=== PATIENT | female | born 1980 | race Caucasian/White ===

== ENCOUNTER 2016-10-27 01:11 | Emergency (ER) | payer BC ==
[2016-10-27] MEDS ORDERED: 50% Dextrose in Water 50 ML Syringe IVPUSH ONE (01:15)
[2016-10-27] MEDS ORDERED: 50% Dextrose in Water 50 ML Syringe ONE (01:19)
[2016-10-27 01:20] VITALS: BP 139/88
[2016-10-27] MEDS ORDERED: Ketorolac 30 MG/ML SDV ONE (02:02)
--- NOTE | 2016-10-27 03:29 | EDM.PDOC ---
ED HPI GENERAL MEDICAL PROBLEM - General Chief Complaint: Diabetic Complaint Stated Complaint: [facility] Time Seen by Provider: 10/27/16 01:26 Source of Information: Reports: Patient, RN Notes Reviewed History Limitations: Reports: No Limitations - History of Present Illness INITIAL COMMENTS - FREE TEXT/NARRATIVE: The patient was brought by EMS after being found unresponsive with sonorous breathing, on the floor. EMS found the patient's blood glucose to be 7. She was given 1 amp of D50, and the subsequent Accu-Chek was up to 75. A dilator check found it to be 60. Upon arrival to the ED, her Accu-Chek was 40. She was given a half amp of D50 and food. The patient states that she was not injured. The patient states that she is a type I diabetic with an insulin pump. She states that she bolused her insulin for the amount of food that she ate, and she has not skipped any meals recently. She states that she usually has a continuous glucose monitor, however, ran out about a week ago and has not yet replaced it due to expense. She has therefore been Accu-Cheking. She states that she has had prior episodes of hypoglycemia, approximately every 2 months, and virtually always when she is not using her continuous glucose monitor. The patient states that she, her 9-year-old son, and infant son drove from [facility], getting in around 21:30. She does not know if the stress from driving may have played a role in her hypoglycemic event tonight. No recent illnesses. The patient's PCP is Dr. Mare Cartagena. - Related Data Allergies Allergy/AdvReac Type Severity Reaction Status Date / Time promethazine Allergy Anaphylactic Verified 10/27/16 01:20 Shock Home Meds: Home Meds Cyanocobalamin/FA/Pyridoxine [Folbee] 1 tab PO DAILY 10/27/16 [History] FLUoxetine [PROzac] 30 mg PO DAILY 10/27/16 [History] Insulin Glargine,Hum.Rec.Anlog [Lantus Solostar] 20 unit SUBCUT QPM 10/27/16 [ History] Lisinopril 2.5 mg PO DAILY 10/27/16 [History] Thyroid,Pork [[place] Thyroid] 30 mg PO DAILY 10/27/16 [History] Thyroid,Pork [[place] Thyroid] 120 mg PO DAILY 10/27/16 [History] buPROPion HCl [Wellbutrin Xl] 300 mg PO DAILY 10/27/16 [History] 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: Psychiatric History: Reports: Depression, Mood Swings Endocrine/Metabolic History: Reports: Diabetes, Type I, Hypothyroidism, Obesity/ BMI 30+ - Past Surgical History HEENT Surgical History: Reports: Tonsillectomy GI Surgical History: Reports: Bariatric Procedure (gastric bypass), Cholecystectomy Female Surgical History: Reports: Section (x 2) Social & Family History - Family History Family Medical History: Noncontributory - Tobacco Use Smoking Status *Q: Former Smoker Years of Tobacco use: 5 Packs/Tins Daily: 0.1 Packs/Tins Daily Comment: Quit 2010 - Caffeine Use Caffeine Use: Reports: None - Alcohol Use Alcohol Use History: Yes Alcohol Use Frequency: Rarely - Recreational Drug Use Recreational Drug Use: No - Living Situation & Occupation Living situation: Reports: , with Spouse, with Family (2 kids) 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) ED ROS GENERAL - Review of Systems Review Of Systems: See Below Constitutional: Reports: No Symptoms HEENT: Reports: No Symptoms Respiratory: Reports: No Symptoms Cardiovascular: Reports: No Symptoms Endocrine: Reports: No Symptoms GI/Abdominal: Reports: No Symptoms : Reports: No Symptoms Musculoskeletal: Reports: No Symptoms Skin: Reports: No Symptoms Neurological: Reports: No Symptoms Psychiatric: Reports: No Symptoms Hematologic/Lymphatic: Reports: No Symptoms Immunologic: Reports: No Symptoms ED EXAM GENERAL NO PERIP PULSE - Physical Exam Exam: See Below Exam Limited By: No Limitations General Appearance: Alert, WD/WN, No Apparent Distress Eye Exam: Bilateral Eye: Normal Inspection Ears: Normal External Exam, Hearing Grossly Normal Nose: Normal Inspection, No Blood Throat/Mouth: Normal Inspection, Normal Lips, Normal Voice, No Airway Compromise Head: Atraumatic, Normocephalic Neck: Normal Inspection, Full Range of Motion Respiratory/Chest: No Respiratory Distress, Lungs Clear, Normal Breath Sounds, No Accessory Muscle Use Cardiovascular: Normal Peripheral Pulses, Regular Rate, Rhythm, No Gallop, No JVD, No Murmur, No Rub GI/Abdominal: Normal Bowel Sounds, Soft, Non-Tender, No Organomegaly, No Distention, No Abnormal Bruit, No Mass, Other (Obese) (Female) Exam: Deferred Rectal (Female) Exam: Deferred Back Exam: Normal Inspection, Full Range of Motion, NT Extremities: Normal Inspection, Normal Range of Motion, No Pedal Edema, Normal Capillary Refill Neurological: Alert, Oriented, Normal Cognition, No Motor/Sensory Deficits Psychiatric: Normal Affect Skin Exam: Warm, Dry, Intact, Normal Color, No Rash Course - Vital Signs Last Recorded V/S: Last Vital Signs Temp 35.3 C 10/27/16 01:15 Pulse 97 10/27/16 01:15 Resp 24 H 10/27/16 01:15 BP 139/88 10/27/16 01:15 Pulse Ox 100 10/27/16 01:15 - Orders/Labs/Meds Labs: Laboratory Tests 10/27/16 10/27/16 10/27/16 Range/Units 02:07 02:45 03:21 POC Glucose 119 H 181 H 238 H (70-105) mg/dL Meds: Medications Discontinued Medications Generic Name Dose Route Start Last Admin Trade Name Babak PRN Reason Stop Dose Admin Dextrose/Water 25 ml 10/27/16 01:15 10/27/16 01:36 Dextrose 50% In Water IVPUSH 10/27/16 01:16 25 ml ONETIME ONE Administration Dextrose/Water Confirm 10/27/16 01:19 10/27/16 01:21 Dextrose 50% In Water Administered 10/27/16 01:20 Not Given Dose 50 ml .ROUTE .STK-MED ONE Ketorolac Tromethamine Confirm 10/27/16 02:02 10/27/16 03:37 Toradol Administered 10/27/16 02:03 Not Given Dose 30 mg .ROUTE .STK-MED ONE - Re-Assessments/Exams Free Text/Narrative Re-Assessment/Exam: 10/27/16 03:31 The patient's blood glucose was 40 upon arrival to the ED. She was given 1/2 Amp D50. Accu-Cheks since then have been 119, 181, and, most recently, 238. I will discharge the patient home with recommendation that she follow-up with her PCP, Dr. Mare Cartagena. Departure - Departure Time of Disposition: 03:32 Disposition: Home, Self-Care 01 Condition: Good Clinical Impression: Hypoglycemic insulin reaction in type 1 diabetes mellitus - Discharge Information Instructions: Hypoglycemia, [id number] Referrals: Tamera Cartagena SHANK TAPER [Primary Care Provider] - Forms: ED Department Discharge Additional Instructions: You were seen in the emergency room for severe hypoglycemia. After treatment with IV dextrose, your blood sugar has remained elevated. You may resume your usual insulin pump, however, we would recommend that you resume using your continuous glucose monitor as soon as possible. We recommend that you follow-up with your PCP, Dr. Mare Cartagena, at the next available appointment. If any other problems, please do not hesitate to return to the ER.
== END 2016-10-27 03:45 | disposition home or self-care (01) ==
LOC: JD.ED 01:11 → MERGE 01:11 → JD.ED 03:45
DX: E10.649 Type 1 diabetes mellitus with hypoglycemia without coma (principal); E03.9 Hypothyroidism, unspecified; E66.9 Obesity, unspecified; Z88.8 Allergy status to other drugs, medicaments and biological substances; Z79.899 Other long term (current) drug therapy; Z98.890 Other specified postprocedural states; Z90.49 Acquired absence of other specified parts of digestive tract; Z87.891 Personal history of nicotine dependence; Z68.33 Body mass index [BMI] 33.0-33.9, adult
CPT/HCPCS: 82962; 96374; 99285; J7060; 99284

== ENCOUNTER 2016-12-24 16:54 | Inpatient (IN) | payer BC ==
[2016-12-24] MEDS ORDERED: Ondansetron 4 MG/2 ML SDV IVPUSH ONE (17:32)
[2016-12-24] MEDS ORDERED: Sodium Chloride 0.9% 1,000 ML IV ONE (17:32)
--- NOTE | 2016-12-24 17:41 | EDM.PDOC ---
<Derek Johnson - Last Filed: 12/24/16 18:54> ED HPI GENERAL MEDICAL PROBLEM - General Chief Complaint: Diabetic Complaint Stated Complaint: DIABETIC ISSUES Time Seen by Provider: 12/24/16 17:12 Source of Information: Reports: Patient, Family (), RN Notes Reviewed History Limitations: Reports: No Limitations - History of Present Illness INITIAL COMMENTS - FREE TEXT/NARRATIVE: The patient states that she went to bed around 10:30 this morning. Her found her to be diaphoretic and nonresponsive around 04:00. He did not have any glucagon, therefore he gave her PICC she sticks and orange juice, the patient was able to somewhat swallow. The patient states that she was able to check her own blood sugar around 05:30, and found it to be 5. She rechecked it and found it to be 6. She took a shower just before 07:00, and apparently fell in the shower, but reports no injury. When she got out of the shower, her blood work was was 50. She continued to take by mouth. Her blood sugar swapnil to the 250s around 09:00. She states that she developed bilateral flank pain and generalized muscle aches around 11:00. Her blood sugar was 355 around noon, at which time she started her insulin pump. She called the office of her PCP, Dr. Mare Cartagena, around 14:00. She states that Dr. Cartagena was gone for the day, but she did speak to one of Dr. Cartagena's nurses, who instructed the patient to go to the ER. Here in the ED, the patient's blood glucose was found to be 194. She stated that it had been in the 250s at home, just before coming to the ED. She states that her last oral solid food was around 11:30 today, consisting of some pretzels. The patient states that she has had numerous hypoglycemic reactions, perhaps 3- 4 times a month. Generalized Pain Score (Numeric/FACES): 4 - Related Data Allergies Allergy/AdvReac Type Severity Reaction Status Date / Time promethazine Allergy Anaphylactic Verified 10/27/16 01:20 Shock Home Meds: Home Meds Cyanocobalamin/FA/Pyridoxine [Folbee] 1 tab PO DAILY 10/27/16 [History] Insulin Glargine,Hum.Rec.Anlog [Lantus Solostar] 20 unit SUBCUT QPM PRN [History] Lisinopril 2.5 mg PO DAILY 10/27/16 [History] Thyroid,Pork [[place] Thyroid] 30 mg PO DAILY 10/27/16 [History] Thyroid,Pork [[place] Thyroid] 120 mg PO DAILY 10/27/16 [History] buPROPion HCl [Wellbutrin Xl] 300 mg PO DAILY 10/27/16 [History] Ondansetron [Zofran ODT] 4 mg PO ASDIRECTED PRN 12/24/16 [History] 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: Psychiatric History: Reports: Depression, Mood Swings Endocrine/Metabolic History: Reports: Diabetes, Type I, Hypothyroidism, Obesity/ BMI 30+ - Past Surgical History HEENT Surgical History: Reports: Oral Surgery ([place] tooth extraction (one)), Tonsillectomy (unilateral) GI Surgical History: Reports: Bariatric Procedure (Gastric bypass 2013), Cholecystectomy Female Surgical History: Reports: Section (x 2) Social & Family History - Family History Family Medical History: Noncontributory - Tobacco Use Smoking Status *Q: Former Smoker Years of Tobacco use: 5 Packs/Tins Daily: 0.1 Month Tobacco Last Used: Quit around 1996 - Caffeine Use Caffeine Use: Reports: Coffee, Soda, Tea - Alcohol Use Alcohol Use History: No - Recreational Drug Use Recreational Drug Use: No - Living Situation & Occupation Living situation: Reports: , with Spouse, with Family (2 kids) 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) ED ROS GENERAL - Review of Systems Review Of Systems: See Below Constitutional: Reports: No Symptoms HEENT: Reports: Other (Viral URI symptoms x 1 month) Respiratory: Reports: No Symptoms Cardiovascular: Reports: No Symptoms Endocrine: Reports: No Symptoms GI/Abdominal: Reports: No Symptoms : Reports: No Symptoms Musculoskeletal: Reports: No Symptoms Skin: Reports: No Symptoms Neurological: Reports: No Symptoms Psychiatric: Reports: No Symptoms Hematologic/Lymphatic: Reports: No Symptoms Immunologic: Reports: No Symptoms ED EXAM GENERAL NO PERIP PULSE - Physical Exam Exam: See Below Exam Limited By: No Limitations General Appearance: Alert, WD/WN, No Apparent Distress Eye Exam: Bilateral Eye: Normal Inspection Ears: Normal External Exam, Hearing Grossly Normal Nose: Normal Inspection, No Blood Throat/Mouth: Normal Inspection, Normal Lips, Normal Voice, No Airway Compromise Head: Atraumatic, Normocephalic Neck: Normal Inspection, Full Range of Motion Respiratory/Chest: No Respiratory Distress, Lungs Clear, Normal Breath Sounds, No Accessory Muscle Use Cardiovascular: Normal Peripheral Pulses, Regular Rate, Rhythm, No Gallop, No JVD, No Murmur, No Rub GI/Abdominal: Normal Bowel Sounds, Soft, Non-Tender, No Organomegaly, No Distention, No Abnormal Bruit, No Mass, Other (Obese) (Female) Exam: Deferred Rectal (Female) Exam: Deferred Back Exam: Normal Inspection, Full Range of Motion, NT Extremities: Normal Inspection, Normal Range of Motion, No Pedal Edema Neurological: Alert, Oriented, Normal Cognition, No Motor/Sensory Deficits Psychiatric: Normal Affect Skin Exam: Warm, Dry, Intact, Normal Color, No Rash Course - Vital Signs Last Recorded V/S: Last Vital Signs Temp 100.0 F 12/24/16 17:06 Pulse 130 H 12/24/16 17:06 Resp 20 12/24/16 17:06 BP 106/88 12/24/16 17:06 Pulse Ox 97 12/24/16 17:06 Orthostatic Blood Pressure [ 99/68 Standing] Orthostatic Blood Pressure [ 115/72 Sitting] Orthostatic Blood Pressure [ 110/76 Supine] - Orders/Labs/Meds Orders: Active Orders 24 hr Category Date Time Status Blood Glucose Check, Bedside [RC] ONETIME Care 12/24/16 17:33 Active Blood Glucose Check, Bedside [RC] ONETIME Care 12/24/16 21:46 Active Orthostatic Vital Signs [RC] STAT Care 12/24/16 17:30 Active Abdomen Pelvis w Cont [CT] Stat Exams 12/24/16 19:25 Taken Chest 1V Frontal [CR] Stat Exams 12/24/16 17:30 Taken Dextrose 5%-0.9% NaCl [Dextrose 5%-Normal Saline] 1,000 Med 12/24/16 17:45 Active ml IV ASDIRECTED Medication Orders Dextrose/Sodium Chloride (Dextrose 5%-Normal Saline) 1,000 mls @ 150 mls/hr IV ASDIRECTED NEL Last Admin: 12/24/16 17:52 Dose: 150 mls/hr Labs: Laboratory Tests 12/24/16 12/24/16 12/24/16 Range/Units 17:05 17:13 17:13 WBC 19.08 H (3.98-10.04) K/mm3 RBC 4.18 (3.98-5.22) M/mm3 Hgb 10.7 L (11.2-15.7) gm/L Hct 34.9 (34.1-44.9) % MCV 83.5 (79.4-94.8) fl MCH 25.6 (25.6-32.2) pg MCHC 30.7 L (32.2-35.5) g/dl RDW Std Deviation 47.4 H (36.4-46.3) fL Plt Count 411 H (182-369) K/mm3 MPV 11.7 (9.4-12.3) fl Neutrophils % (Manual) 90 H (40-60) % Band Neutrophils % 0 (0-10) % Lymphocytes % (Manual) 5 L (20-40) % Atypical Lymphs % 0 % Monocytes % (Manual) 5 (2-10) % Eosinophils % (Manual) 0 L (0.7-5.8) % Basophils % (Manual) 0 L (0.1-1.2) Platelet Estimate Adequate Plt Morphology Comment See note Hypochromasia 1+ slight Poikilocytosis 2+ moderate Anisocytosis 1+ slight Stomatocytes 2+ moderate RBC Morph Comment Not Reportable Sodium 138 (136-145) mEq/L Potassium 4.4 (3.5-5.1) mEq/L Chloride 100 (98-107) mEq/L Carbon Dioxide 28 (21-32) mEq/L Anion Gap 14.4 (5-15) BUN 10 (7-18) mg/dL Creatinine 1.1 H (0.55-1.02) mg/dL Est Cr Clr Drug Dosing 71.32 mL/min Estimated GFR (MDRD) 56 (>60) mL/min BUN/Creatinine Ratio 9.1 L (14-18) Glucose 177 H (74-106) mg/dL POC Glucose 194 H (70-105) mg/dL Hemoglobin A1c (4.50-6.20) % Lactic Acid (0.4-2.0) mmol/L Calcium 9.4 (8.5-10.1) mg/dL Magnesium 1.4 L (1.8-2.4) mg/dl Total Bilirubin 0.3 (0.2-1.0) mg/dL AST 18 (15-37) U/L ALT 25 (14-59) U/L Alkaline Phosphatase 98 (46-116) U/L Total Protein 7.5 (6.4-8.2) g/dl Albumin 3.4 (3.4-5.0) g/dl Globulin 4.1 gm/dL Albumin/Globulin Ratio 0.8 L (1-2) TSH 3rd Generation 1.796 (0.358-3.74) uIU/mL Urine Color (Yellow) Urine Appearance (Clear) Urine pH (5.0-8.0) Ur Specific [place] (1.005-1.030) Urine Protein (Negative) Urine Glucose (UA) (Negative) Urine Ketones (Negative) Urine Occult Blood (Negative) Urine Nitrite (Negative) Urine Bilirubin (Negative) Urine Urobilinogen (0.2-1.0) Ur Leukocyte Esterase (Negative) Urine RBC (0-5) /hpf Urine WBC (0-5) /hpf Ur Epithelial Cells (0-5) /hpf Urine Bacteria (FEW) /hpf Urine Mucus (FEW) /hpf Urine HCG, Qual (NEGATIVE) 12/24/16 12/24/16 12/24/16 Range/Units 18:00 18:00 18:00 WBC (3.98-10.04) K/mm3 RBC (3.98-5.22) M/mm3 Hgb (11.2-15.7) gm/L Hct (34.1-44.9) % MCV (79.4-94.8) fl MCH (25.6-32.2) pg MCHC (32.2-35.5) g/dl RDW Std Deviation (36.4-46.3) fL Plt Count (182-369) K/mm3 MPV (9.4-12.3) fl Neutrophils % (Manual) (40-60) % Band Neutrophils % (0-10) % Lymphocytes % (Manual) (20-40) % Atypical Lymphs % % Monocytes % (Manual) (2-10) % Eosinophils % (Manual) (0.7-5.8) % Basophils % (Manual) (0.1-1.2) Platelet Estimate Plt Morphology Comment Hypochromasia Poikilocytosis Anisocytosis Stomatocytes RBC Morph Comment Sodium (136-145) mEq/L Potassium (3.5-5.1) mEq/L Chloride (98-107) mEq/L Carbon Dioxide (21-32) mEq/L Anion Gap (5-15) BUN (7-18) mg/dL Creatinine (0.55-1.02) mg/dL Est Cr Clr Drug Dosing mL/min Estimated GFR (MDRD) (>60) mL/min BUN/Creatinine Ratio (14-18) Glucose (74-106) mg/dL POC Glucose (70-105) mg/dL Hemoglobin A1c (4.50-6.20) % Lactic Acid 2.0 (0.4-2.0) mmol/L Calcium (8.5-10.1) mg/dL Magnesium (1.8-2.4) mg/dl Total Bilirubin (0.2-1.0) mg/dL AST (15-37) U/L ALT (14-59) U/L Alkaline Phosphatase (46-116) U/L Total Protein (6.4-8.2) g/dl Albumin (3.4-5.0) g/dl Globulin gm/dL Albumin/Globulin Ratio (1-2) TSH 3rd Generation (0.358-3.74) uIU/mL Urine Color Yellow (Yellow) Urine Appearance Clear (Clear) Urine pH 6.0 (5.0-8.0) Ur Specific [place] 1.015 (1.005-1.030) Urine Protein Negative (Negative) Urine Glucose (UA) Trace H (Negative) Urine Ketones Negative (Negative) Urine Occult Blood Negative (Negative) Urine Nitrite Negative (Negative) Urine Bilirubin Negative (Negative) Urine Urobilinogen 0.2 (0.2-1.0) Ur Leukocyte Esterase Negative (Negative) Urine RBC 0-5 (0-5) /hpf Urine WBC 0-5 (0-5) /hpf Ur Epithelial Cells 0-5 (0-5) /hpf Urine Bacteria Not seen (FEW) /hpf Urine Mucus Not seen (FEW) /hpf Urine HCG, Qual Negative (NEGATIVE) 12/24/16 12/24/16 Range/Units 21:28 22:35 WBC (3.98-10.04) K/mm3 RBC (3.98-5.22) M/mm3 Hgb (11.2-15.7) gm/L Hct (34.1-44.9) % MCV (79.4-94.8) fl MCH (25.6-32.2) pg MCHC (32.2-35.5) g/dl RDW Std Deviation (36.4-46.3) fL Plt Count (182-369) K/mm3 MPV (9.4-12.3) fl Neutrophils % (Manual) (40-60) % Band Neutrophils % (0-10) % Lymphocytes % (Manual) (20-40) % Atypical Lymphs % % Monocytes % (Manual) (2-10) % Eosinophils % (Manual) (0.7-5.8) % Basophils % (Manual) (0.1-1.2) Platelet Estimate Plt Morphology Comment Hypochromasia Poikilocytosis Anisocytosis Stomatocytes RBC Morph Comment Sodium (136-145) mEq/L Potassium (3.5-5.1) mEq/L Chloride (98-107) mEq/L Carbon Dioxide (21-32) mEq/L Anion Gap (5-15) BUN (7-18) mg/dL Creatinine (0.55-1.02) mg/dL Est Cr Clr Drug Dosing mL/min Estimated GFR (MDRD) (>60) mL/min BUN/Creatinine Ratio (14-18) Glucose (74-106) mg/dL POC Glucose 208 H (70-105) mg/dL Hemoglobin A1c 8.10 H (4.50-6.20) % Lactic Acid (0.4-2.0) mmol/L Calcium (8.5-10.1) mg/dL Magnesium (1.8-2.4) mg/dl Total Bilirubin (0.2-1.0) mg/dL AST (15-37) U/L ALT (14-59) U/L Alkaline Phosphatase (46-116) U/L Total Protein (6.4-8.2) g/dl Albumin (3.4-5.0) g/dl Globulin gm/dL Albumin/Globulin Ratio (1-2) TSH 3rd Generation (0.358-3.74) uIU/mL Urine Color (Yellow) Urine Appearance (Clear) Urine pH (5.0-8.0) Ur Specific [place] (1.005-1.030) Urine Protein (Negative) Urine Glucose (UA) (Negative) Urine Ketones (Negative) Urine Occult Blood (Negative) Urine Nitrite (Negative) Urine Bilirubin (Negative) Urine Urobilinogen (0.2-1.0) Ur Leukocyte Esterase (Negative) Urine RBC (0-5) /hpf Urine WBC (0-5) /hpf Ur Epithelial Cells (0-5) /hpf Urine Bacteria (FEW) /hpf Urine Mucus (FEW) /hpf Urine HCG, Qual (NEGATIVE) Meds: Medications Generic Name Dose Route Start Last Admin Trade Name Freq PRN Reason Stop Dose Admin Dextrose/Sodium Chloride 1,000 mls @ 150 mls/hr 12/24/16 17:45 12/24/16 17:52 Dextrose 5%-Normal Saline IV 150 mls/hr ASDIRECTED NEL Administration Discontinued Medications Generic Name Dose Route Start Last Admin Trade Name Freq PRN Reason Stop Dose Admin Diatrizoate Meglum/Diatrizoate Sod 90 ml 12/24/16 20:52 12/24/16 21:16 Gastrografin 37% PO 12/24/16 20:53 90 ml ONETIME ONE Administration Hydromorphone HCl 1 mg 12/24/16 19:24 12/24/16 19:36 Dilaudid IVPUSH 12/24/16 19:25 1 mg ONETIME ONE Administration Magnesium Sulfate 2 gm/ Premix 50 mls @ 50 mls/hr 12/24/16 18:10 12/24/16 18: 21 IV 12/24/16 19:09 50 mls/hr ONETIME ONE Administration Iopamidol 100 ml 12/24/16 20:52 12/24/16 21:16 Isovue-370 (76%) IVPUSH 12/24/16 20:53 100 ml ONETIME ONE Administration Ondansetron HCl 4 mg 12/24/16 17:32 12/24/16 17:54 Zofran IVPUSH 12/24/16 17:33 4 mg ONETIME ONE Administration - Re-Assessments/Exams Free Text/Narrative Re-Assessment/Exam: 12/24/16 18:11 The patient does not meet criterion for orthostasis, although she did report feeling dizzy when she stood up. 12/24/16 18:54 Portable chest radiograph appears to be grossly normal. Cardiac silhouette is within normal limits. No pulmonary vascular congestion. No pleural effusions. No focal infiltrate. No pneumothorax. Formal read per the Radiologist pending. 12/24/16 18:[address] Diehl, and care of the patient turned over to him at this time, for change of shift. Departure - Departure Disposition: Refer to Observation Clinical Impression: Hypoglycemic insulin reaction in type 1 diabetes mellitus Fall Qualifiers: Encounter type: initial encounter Qualified Code(s): W19.XXXA - Unspecified fall, initial encounter Contusion of back Qualifiers: Encounter type: initial encounter Laterality: unspecified laterality Qualified Code(s): S20.229A - Contusion of unspecified back wall of thorax, initial encounter Aspiration into lower respiratory tract Qualifiers: Encounter type: initial encounter Qualified Code(s): T17.800A - Unspecified foreign body in other parts of respiratory tract causing asphyxiation, initial encounter - Discharge Information Referrals: Mrae Cartagena MD [Primary Care Provider] - Forms: ED Department Discharge - My Orders Last 24 Hours: My Active Orders 12/24/16 19:25 Abdomen Pelvis w Cont [CT] Stat - Assessment/Plan Last 24 Hours: My Active Orders 12/24/16 19:25 Abdomen Pelvis w Cont [CT] Stat <Juan F Diehl - Last Filed: 12/24/16 23:12> Course - Re-Assessments/Exams Free Text/Narrative Re-Assessment/Exam: 12/24/16 23:02 I went in to examine the patient and she had generalized abdominal pain and low back pain upon palpation. I ordered a CT of her abdomen and pelvis. The CT showed no acute trauma but she did have some inflammatory changes in her lungs from aspiration. She has no fever or cough. She does have an elevated WBC of 19. That could be a stress response. Her creatinine was elevated at 1.1. Her glucose was 194. Her lactic acid was negative. Her TSH was negative. Her magnesium was low at 1.4. Her UA was negative for UTI. Her HCG was negative. I gave her some dilaudid for the pain. 12/24/16 23:09 She is feeling better. I feel she needs to be admitted tonight. I called Dr Mancera and he agreed to the admission. Departure - Departure Time of Disposition: 23:10 Condition: Fair
[2016-12-24] MEDS ORDERED: Dextrose 5%-0.9% NaCl 1,000 ML IV SCH (17:45)
[2016-12-24] MEDS ORDERED: Magnesium Sulfate/Water 2 GM in Premix Bag 1 BAG IV ONE (18:10)
[2016-12-24] MEDS ORDERED: HYDROmorphone 1 MG/ML Syringe IVPUSH ONE (19:24)
[2016-12-24] MEDS ORDERED: Iopamidol 755 Mg/ML 100 ML Bottle IVPUSH ONE (20:52)
[2016-12-24] MEDS ORDERED: Diatrizoate Meglumine/Diatrizoate Sodium 37% 120 ML Bottle PO ONE (20:52)
[2016-12-24] MEDS ORDERED: hydrALAZINE 20 MG/ML SDV IVPUSH PRN (23:21)
[2016-12-24] MEDS ORDERED: Metoprolol Tartrate 5 MG/5 ML SDV IVPUSH PRN (23:21)
[2016-12-24] MEDS ORDERED: LORazepam 2 MG/ML MDV IVPUSH PRN (23:21)
[2016-12-24] MEDS ORDERED: Polyethylene Glycol 3350 Powder 17 GM Packet PO PRN (23:22)
[2016-12-24] MEDS ORDERED: LORazepam 2 MG/ML MDV IV PRN (23:22)
[2016-12-24] MEDS ORDERED: Bisacodyl 5 MG Tab PO PRN (23:22)
[2016-12-24] MEDS ORDERED: Promethazine 12.5 MG in Sodium Chloride 0.9% 50 ML IV PRN (23:22)
[2016-12-24] MEDS ORDERED: Albuterol/Ipratropium 3.0-0.5 MG/3 ML Neb Soln NEB PRN (23:22)
[2016-12-24] MEDS ORDERED: Ondansetron 4 MG/2 ML SDV IV PRN (23:22)
[2016-12-24] MEDS ORDERED: Temazepam 15 MG Cap PO PRN (23:22)
[2016-12-24] MEDS ORDERED: Docusate Sodium 100 MG Cap PO PRN (23:22)
[2016-12-24] MEDS ORDERED: Acetaminophen 325 MG Tab PO PRN (23:22)
[2016-12-24] MEDS ORDERED: Ondansetron 4 MG Tab.DIS PO PRN (23:27)
[2016-12-24] MEDS ORDERED: INSULIN GLARGINE HUM REC ANLOG 20 UNIT SUBCUT PRN (23:27)
[2016-12-24] MEDS ORDERED: 50% Dextrose in Water 50 ML Syringe IVPUSH PRN (23:28)
[2016-12-25] MEDS ORDERED: Temazepam 15 MG Cap PO PRN (00:30)
[2016-12-25] MEDS ORDERED: Acetaminophen/Butalbital/Caffeine 325-50-40 MG Tab PO ONE (00:35)
[2016-12-25] MEDS ORDERED: Insulin Detemir 100 Units/ML 3 ML Pen SUBCUT PRN (00:42)
--- NOTE | 2016-12-25 00:47 | PCM.HP ---
H&P History of Present Illness - General Date of Service: 12/25/16 Source of Information: Patient, Old Records, Provider, RN History Limitations: Reports: No Limitations - History of Present Illness Initial Comments - Free Text/Narative: Savanna Weldon is a 36 you female who presented to our ED today with diabetic concerns. She was reportedly found unresponsive and diaphoretic by her at 4 AM. She does not have any glucagon was given PIXI sticks and orange juice by her . Around 5:30 AM the patient was able to check her own blood sugar and reports it was 5. She stated she rechecked it and found it to be 6. Around 7 AM to she reportedly fell while taking a shower but denies any injury. After this episode she rechecked her sugar and found it to be 50. She reportedly continues to take food and liquid containing sugar by mouth and around 9 PM her sugars were up in the 250s. She reports then developing bilateral flank pain and generalized muscle aches around 11 AM. She reports her sugar was 355 around noon and she restarted her insulin pump. His reported she called her PCP Dr. Cartagena around 1400 and was told to come to the ER by Dr. Cartagena's nurse. In the ED blood glucose was found to be 194. His reported she took it just prior to coming to the ER and it was 250. Last solid food is reported to consist of pretzels around 11:30 today. She reports numerous hypoglycemic episodes, happening around 3-4 times per month. In the ED temp was 100F. Pulse was 1:30 respirations 20 BP 106/88 and pulse ox 97%. Orthostatic blood pressures were obtained and were negative. Labs were obtained: She does have a white count at 19.08. Hemoglobin is low at 10.7. Hematocrit 34.9. She has normocytic. Platelets were elevated at 411, 000. Neutrophils were elevated at 90%. There is no bandemia. There is 1+ hypochromasia. 2+ poikilocytosis. 1+ anisocytosis. And 2+ stomatocytes. Sodium was 138. Potassium 4.4. Chloride 100. Carbon dioxide 28. Anion gap 14.4. BUN 10. Creatinine 1.1. EGFR is 56. Glucose was 177 he will been A1c was 8.10. Calcium was 9.4. Magnesium was low at 1.4. Total bilirubin 0.3. Liver enzymes were good with AST at 18, ALT at 25, alkaline phosphatase and 98. Total protein 7.5. Albumin 3.4. TSH was 1.796. Lactic acid was 2.0. UA was negative. Urine hCG was negative. Chest x-ray was obtained. Crit axilla was apparently within normal limits. There was no pulmonary vascular congestion , pleural effusions, focal in for trach, or pneumothorax. This was interpreted by the ED provider. Due to the generalized abdominal pain a CT of her abdomen and pelvis was ordered. CT showed no acute trauma but she did have some inflammatory changes in her lungs with possible aspiration. She has no fever or cough she is given some Dilaudid for pain. She carries a history of: Depression, mood swings, type 1 diabetes, hypothyroidism, obesity, and gastric bypass in 2013. She is a former smoker having quit around 1996. She subsequently admitted to the medical floor for observation. Her primary care provider is Dr. Cartagena at [facility]. Generalized Pain Score (Numeric/FACES): 4 - Related Data Allergies/Adverse Reactions: Allergies Allergy/AdvReac Type Severity Reaction Status Date / Time promethazine Allergy Anaphylactic Verified 10/27/16 01:20 Shock Home Medications: Home Meds Cyanocobalamin/FA/Pyridoxine [Folbee] 1 tab PO DAILY 10/27/16 [History] Insulin Glargine,Hum.Rec.Anlog [Lantus Solostar] 20 unit SUBCUT QPM PRN [History] Lisinopril 2.5 mg PO DAILY 10/27/16 [History] Thyroid,Pork [Mcroberts Thyroid] 30 mg PO DAILY 10/27/16 [History] Thyroid,Pork [Mcroberts Thyroid] 120 mg PO DAILY 10/27/16 [History] buPROPion HCl [Wellbutrin Xl] 300 mg PO DAILY 10/27/16 [History] Ondansetron [Zofran ODT] 4 mg PO ASDIRECTED PRN 12/24/16 [History] Past Medical History Respiratory History: Reports: Asthma 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 History: Reports: Musculoskeletal History: Reports: RA Psychiatric History: Reports: Depression, Mood Swings Endocrine/Metabolic History: Reports: Diabetes, Type I, Hypothyroidism, Obesity/ BMI 30+ - Past Surgical History HEENT Surgical History: Reports: Oral Surgery ([place] tooth extraction (one)), Tonsillectomy (unilateral) GI Surgical History: Reports: Bariatric Procedure (Gastric bypass 2014), Cholecystectomy Female Surgical History: Reports: Section (x 2) Social & Family History - Family History Family Medical History: Noncontributory - Tobacco Use Smoking Status *Q: Former Smoker Years of Tobacco use: 5 Packs/Tins Daily: 0.1 Used Tobacco, but Quit: Yes Month Tobacco Last Used: Quit around 1996 - Caffeine Use Caffeine Use: Reports: Coffee, Soda, Tea - Recreational Drug Use Recreational Drug Use: No - Living Situation & Occupation Living situation: Reports: , with Spouse, with Family (2 kids) 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 Denies : Chills HEENT: Reports: Headaches. Denies: Ear Pain, Eye Pain, Rhinitis, Sinus Congestion, Sore Throat, Vertigo, Visual Changes Pulmonary: Reports: Cough. Denies: Shortness of Breath, Wheezing, Pleuritic Chest Pain, Sputum Cardiovascular: Denies: Chest Pain, Palpitations, Dyspnea on Exertion, Edema, Lightheadedness, Claudication Gastrointestinal: Reports: Abdominal Pain (Chronic upper quadrant ). Denies: Constipation, Diarrhea, Nausea, Vomiting Genitourinary: Reports: No Symptoms. Denies: Dysuria, Frequency, Burning, Pain , Urgency Musculoskeletal: Reports: No Symptoms. Denies: Neck Pain, Shoulder Pain, Arm Pain, Back Pain, Hand Pain, Leg Pain, Foot Pain, Joint Pain, Joint Swelling, Muscle Pain, Muscle Stiffness Skin: Reports: No Symptoms Psychiatric: Reports: Depression, Mood Lability, Anxiety. Denies: Confusion, Hallucinations Neurological: Reports: Headache, Weakness. Denies: Dizziness, Numbness, Pre- Existing Deficit, Seizure, Syncope, Tingling, Trouble Speaking, Difficulty Walking, Change in Speech, Gait Disturbance Hematologic/Lymphatic: Reports: No Symptoms Immunologic: Reports: No Symptoms Exam - Exam Exam: See Below - Vital Signs Vital Signs: Last Vital Signs Temp 100.0 F 12/24/16 17:06 Pulse 130 H 12/24/16 17:06 Resp 20 12/24/16 17:06 BP 106/88 12/24/16 17:06 Pulse Ox 97 12/24/16 17:06 Weight: 222 lb - Exam Quality Assessment: DVT Prophylaxis, Other (obese ) General: Alert, Oriented, Cooperative HEENT: Conjunctiva Clear, EACs Clear, EOMI, Hearing Intact, Mucosa Moist & Literberry , Nares Patent, Normal Nasal Septum, Posterior Pharynx Clear, PERRLA Neck: Supple, Trachea Midline. No: JVD, Thyromegaly Lungs: Clear to Auscultation, Normal Respiratory Effort. No: Crackles, Rales, Rhonchi, Rub, Stridor, Wheezing Cardiovascular: Regular Rate, Regular Rhythm GI/Abdominal Exam: Normal Bowel Sounds, Soft, No Organomegaly, No Distention, No Abnormal Bruit, No Mass, Pelvis Stable, Guarding, Tender (upper quadrants ) (Female) Exam: Deferred Rectal (Female) Exam: Deferred Back Exam: Normal Inspection, Full Range of Motion Extremities: Normal Inspection, Normal Range of Motion, Non-Tender, No Pedal Edema, Normal Capillary Refill Peripheral Pulses: 2+: Radial (L), Radial (R), Posterior Tibial (L), Posterior Tibial (R), Dorsalis Pedis (L), Dorsalis Pedis (R) Skin: Warm, Dry, Intact Neurological: Cranial Nerves Intact (Grossly) Neuro Extensive - Mental Status: Alert, Oriented x3, Normal Cognition, Memory Intact Neuro Extensive - Motor, Sensory, Reflexes: CN II-XII Intact (Grossly) Psychiatric: Alert, Labile Mood, Depressed, Other (She is crying and appears to be somewhat upset over her current health issues) - Patient Data Result Diagrams: 12/24/16 17:13 12/24/16 17:13 *Q Meaningful Use (ADM) - VTE *Q VTE Criteria *Q: - Stroke *Q Stroke Criteria *Q: - AMI *Q AMI Criteria *Q: - Problem List (1) Aspiration into lower respiratory tract SNOMED Code(s): 002084111 ICD Code: T17.800A - UNSP FOREIGN BODY IN OTH PRT RESP TRACT CAUSING ASPHYX, INIT Status: Acute Priority: High Current Visit: Yes Qualifiers: Encounter type: initial encounter Qualified Code(s): T17.800A - Unspecified foreign body in other parts of respiratory tract causing asphyxiation, initial encounter (2) Hypoglycemic insulin reaction in type 1 diabetes mellitus SNOMED Code(s): 01884976 ICD Code: E10.649 - TYPE 1 DIABETES MELLITUS WITH HYPOGLYCEMIA WITHOUT COMA Status: Acute Priority: High Current Visit: Yes (3) Hypomagnesemia SNOMED Code(s): 714026197 ICD Code: E83.42 - HYPOMAGNESEMIA Status: Acute Priority: High Current Visit: Yes Problem List Initiated/Reviewed/Updated: Yes Orders Last 24hrs: Active Orders 24 hr Category Date Time Status Acetaminophen/Butalbital/Caff [Fioricet 325-50-40 MG] Med 12/25/16 00:35 Once 1 tab PO ONETIME ONE Temazepam [Restoril] Med 12/25/16 00:30 Ordered 15 mg PO BEDTIME PRN Medication Orders Acetaminophen (Tylenol) 650 mg PO Q4H PRN PRN Reason: Pain (Mild 1-3)/fever Acetaminophen/Butalbital/Caffeine (Fioricet 325-50-40 Mg) 1 tab PO ONETIME ONE Stop: 12/25/16 00:36 Hydrocodone Bitart/Acetaminophen (Weiner 325-5 Mg) 1 tab PO Q4H PRN PRN Reason: Pain (moderate 4-6) Albuterol/Ipratropium (Duoneb 3.0-0.5 Mg/3 Ml) 3 ml NEB Q4H PRN PRN Reason: Shortness Of Breath/wheezing Bisacodyl (Dulcolax) 5 mg PO DAILY PRN PRN Reason: Constipation Dextrose/Water (Dextrose 50% In Water) 50 ml IVPUSH ASDIRECTED PRN PRN Reason: Hypoglycemia Docusate Sodium (Colace) 100 mg PO BID PRN PRN Reason: Constipation Hydralazine HCl (Apresoline) 20 mg IVPUSH Q4H PRN PRN Reason: Hypertension Hydromorphone HCl (Dilaudid) 0.25 mg IVPUSH Q2H PRN PRN Reason: Pain (severe 7-10) Dextrose/Sodium Chloride (Dextrose 5%-Normal Saline) 1,000 mls @ 150 mls/hr IV ASDIRECTED ENL Last Admin: 12/24/16 17:52 Dose: 150 mls/hr Promethazine HCl 12.5 mg/ (Sodium Chloride) 50.5 mls @ 100 mls/hr IV Q6H PRN PRN Reason: Nausea/Vomiting Sodium Chloride (Normal Saline) 1,000 mls @ 125 mls/hr IV ASDIRECTED [facility] Insulin Aspart (Novolog) 0 unit SUBCUT QIDACANDBED NEL PRN Reason: Protocol Lorazepam (Ativan) 2 mg IVPUSH Q4H PRN PRN Reason: Seizures Lorazepam (Ativan) 1 mg IV Q6H PRN PRN Reason: Anxiety Magnesium Sulfate (Pharmacy To Dose - Magnesium Replacement) 1 dose .XX ASDIRECTED [facility] Metoprolol Tartrate (Lopressor) 5 mg IVPUSH Q4H PRN PRN Reason: Tachycardia Non-Formulary Medication (Bupropion Hcl [Wellbutrin Xl]) 300 mg PO DAILY NEL Non-Formulary Medication (Cyanocobalamin/Fa/Pyridoxine [Folbee]) 1 tab PO DAILY NEL Non-Formulary Medication (Insulin Glargine,Hum.Rec.Anlog) 20 unit SUBCUT QPM PRN PRN Reason: blood sugar Non-Formulary Medication (Thyroid,Pork) 30 mg PO DAILY NEL Non-Formulary Medication (Thyroid,Pork [Mcroberts Thyroid]) 120 mg PO DAILY [facility] Ondansetron HCl (Zofran) 4 mg IV Q4H PRN PRN Reason: Nausea/Vomiting Ondansetron HCl (Zofran Odt) 4 mg PO ASDIRECTED PRN PRN Reason: Nausea Polyethylene Glycol (Miralax) 17 gm PO DAILY PRN PRN Reason: Constipation Potassium Chloride (Pharmacy To Dose - Potassium Replacement) 1 dose .XX ASDIRECTED [facility] Senna/Docusate Sodium (Senna Plus) 1 tab PO BID PRN PRN Reason: Constipation Temazepam (Restoril) 15 mg PO BEDTIME PRN PRN Reason: Insomnia Assessment/Plan Comment:: I/P: Hypoglycemia in type I diabetic -Reports hypoglycemia in embalmer assistant hours with blood sugar in single digits. This was when she took her own blood sugar. -Reportedly resolved utilizing orange juice and PIXI sticks -On insulin pump; restarted insulin pump prior to arrival in ED -Blood glucose level 177 on arrival to ED; She reports it was 250 just prior to coming to ED at home -Question accuracy of her home glucometer - may need calibration -Reports feeling shaky and "sick" on exam. She reports she has never felt this way after hypoglycemic episode for this long -Reports 3-4 hypoglycemic episodes per month -D5NS IV at 150ml/hr in ED -Continue home Levemir -Low dose insulin protocol -QID, AC, and Bedtime glucose checks -Dietitian consult ordered -Phenergan for nausea and vomiting PRN -Diabetic diet Aspiration into lower respiratory tract -Reportedly given PIXI sticks and orange juice by while unresponsive due to hypoglycemic episode -Inflammatory changes noted and lungs on abdominal CT. -WBC 19.08 although this may be due to stress reaction -Mild low-grade fever -Cough which pt. states is worsening throughout day - non-productive -Consider f/u chest X-ray in 24-48 hours if symptoms warrant. Hypomagnesemia -Magnesium 1.4 mg/dl in ED -2 gm IV magnesium supplementation given in ED -Pharmacy to monitor and replete Chronic: Depression Mood-swings Type I DM Hypothyroidism - stable Obesity hx/o gastric bypass in 2013 Plan: Admit to medical floor as observation status CM/SW for discharge planning PT/OT DVT/PE prophylaxis: SCDs Consult spiritual care Other orders as indicated above Home medications as ordered Routine AM labs Code Status: Full code. Her PCP is Dr. Cartagena at [facility].
[2016-12-25] MEDS ORDERED: Pneumococcal Polyvalent-23 Vaccine 0.5 ML SDV IM ONE (00:54)
[2016-12-25] MEDS: Sodium Chloride 0.9% 1,000 ML IV SCH ×3 (01:48→21:48)
[2016-12-25] MEDS: Acetaminophen/HYDROcodone 325-5 MG Tab PO PRN ×4 (01:49→21:39)
[2016-12-25] MEDS: Thyroid 60 MG Tab PO SCH (06:02)
--- NOTE | 2016-12-25 06:42 | CR ---
Chest: Portable view of the chest was obtained. Comparison: No prior chest x-ray is available. Findings: Increased density identified within both lung bases mostly interstitial in appearance. Upper lungs are clear. Heart size and mediastinum are normal. Bony structures are unremarkable. Impression: 1. Increased density within both lung bases, without old study uncertain if this represents pulmonary fibrosis or if acute could represent mild bronchopneumonia. Diagnostic code #3
--- NOTE | 2016-12-25 06:57 | CT ---
CT abdomen and pelvis Technique: Multiple axial sections were obtained from above the dome of the diaphragm inferiorly through the pubic symphysis. Intravenous and oral contrast has been given. Delayed images were also obtained through the bladder. Findings: Interstitial changes are seen within both lung bases. Liver shows no focal parenchymal abnormality. Spleen appears within normal limits. Small hiatal hernia is seen. Previous stomach surgery is noted. Previous cholecystectomy is noted. Adrenal glands show no nodule. Kidneys show symmetric contrast enhancement without hydronephrosis or mass. Pancreas is within normal limits. Aorta shows no aneurysmal dilatation. No retroperitoneal adenopathy or mesenteric abnormalities are seen. No pelvic mass or adenopathy is seen. Delayed images show contrast within the distal ureters and within the bladder. Increased stool is noted throughout the colon. Appendix is felt to be visualized and appears normal in size. No free fluid or inflammatory change is seen. Bone window settings were reviewed which appear within normal limits for the patient's age. Impression: 1. Interstitial changes within both lung bases. As described on recent chest x-ray, uncertain if findings represent fibrosis or represent an acute bronchopneumonia pattern. 2. Previous stomach surgery and cholecystectomy. Small hiatal hernia is seen. 3. Increased stool within the colon. 4. Nothing acute is otherwise seen on CT study of the abdomen and pelvis. Diagnostic code #3 I agree with preliminary report issued by [employer] ([employer] preliminary report dictated on 12/24/16, 10:34 PM Central Time)
[2016-12-25] MEDS: buPROPion 150 MG Tab.ER PO SCH (08:52)
[2016-12-25] MEDS: Insulin Aspart 100 Units/ML 3 ML Pen SUBCUT SCH ×4 (08:53→21:41)
[2016-12-25] MEDS ORDERED: THYROID PORK 120 MG PO SCH (09:00)
--- NOTE | 2016-12-25 09:18 | PCM.PN ---
- General Info Date of Service: 12/25/16 Admission Dx/Problem (Free Text): Savanna is seen this morning, eating her breakfast. She is feeling better this morning. No n/v or abd pain. Back pain is much improved this morning, last night she states "my kidneys really hurt". Sugars are up now; overnight 208, 415 and 354 this morning. CRP is up to 13.5, WBC is improved from 19K to 13K. A1C is 8.[address] Mare Cartagena at [facility] in [place]. Functional Status: Reports: Pain Controlled, Tolerating Diet, Ambulating, Urinating. Denies: New Symptoms - Review of Systems General: Denies: Fever HEENT: Reports: No Symptoms Pulmonary: Reports: No Symptoms. Denies: Shortness of Breath, Pleuritic Chest Pain, Cough, Sputum, Wheezing Cardiovascular: Reports: No Symptoms. Denies: Chest Pain, Palpitations, Dyspnea on Exertion Gastrointestinal: Reports: No Symptoms Musculoskeletal: Reports: No Symptoms Neurological: Reports: No Symptoms - Patient Data Vitals - Most Recent: Last Vital Signs Temp 97.9 F 12/25/16 08:26 Pulse 89 12/25/16 08:26 Resp 16 12/25/16 08:26 BP 99/51 L 12/25/16 08:26 Pulse Ox 92 L 12/25/16 08:26 Weight - Most Recent: 222 lb I&O - Last 24 Hours: Intake & Output 12/24/16 12/25/16 12/25/16 22:59 06:59 14:59 Intake Total 1024 Output Total 1000 Balance 24 Lab Results Last 24 Hours: Laboratory Results - last 24 hr 12/25/16 12/25/16 12/25/16 Range/Units 05:56 05:56 06:06 WBC 13.23 H (3.98-10.04) K/mm3 RBC 3.55 L (3.98-5.22) M/mm3 Hgb 9.0 L (11.2-15.7) gm/L Hct 29.8 L (34.1-44.9) % MCV 83.9 (79.4-94.8) fl MCH 25.4 L (25.6-32.2) pg MCHC 30.2 L (32.2-35.5) g/dl RDW Std Deviation 48.1 H (36.4-46.3) fL Plt Count 334 (182-369) K/mm3 MPV 12.2 (9.4-12.3) fl Neut % (Auto) 79.5 H (34.0-71.1) % Lymph % (Auto) 10.6 L (19.3-51.7) % [place] % (Auto) 6.7 (4.7-12.5) % Eos % (Auto) 2.7 (0.7-5.8) Baso % (Auto) 0.3 (0.1-1.2) % Neut # (Auto) 10.52 H (1.56-6.13) K/mm3 Lymph # (Auto) 1.40 (1.18-3.74) K/mm3 [place] # (Auto) 0.88 H (0.24-0.36) K/mm3 Eos # (Auto) 0.36 (0.04-0.36) K/mm3 Baso # (Auto) 0.04 (0.01-0.08) K/mm3 Sodium 135 L (136-145) mEq/L Potassium 4.4 (3.5-5.1) mEq/L Chloride 100 (98-107) mEq/L Carbon Dioxide 28 (21-32) mEq/L Anion Gap 11.4 (5-15) BUN 12 (7-18) mg/dL Creatinine 0.9 (0.55-1.02) mg/dL Est Cr Clr Drug Dosing 87.17 mL/min Estimated GFR (MDRD) > 60 (>60) mL/min BUN/Creatinine Ratio 13.3 L (14-18) Glucose 414 H (74-106) mg/dL POC Glucose 354 H (70-105) mg/dL Calcium 8.1 L (8.5-10.1) mg/dL Magnesium 2.0 (1.8-2.4) mg/dl C-Reactive Protein 13.5 H* (<1.0) mg/dL Med Orders - Current: Current Medications Acetaminophen (Tylenol) 650 mg PO Q4H PRN PRN Reason: Pain (Mild 1-3)/fever Hydrocodone Bitart/Acetaminophen ([place] 325-5 Mg) 1 tab PO Q4H PRN PRN Reason: Pain (moderate 4-6) Last Admin: 12/25/16 01:49 Dose: 1 tab Albuterol/Ipratropium (Duoneb 3.0-0.5 Mg/3 Ml) 3 ml NEB Q4H PRN PRN Reason: Shortness Of Breath/wheezing Bisacodyl (Dulcolax) 5 mg PO DAILY PRN PRN Reason: Constipation Bupropion HCl (Wellbutrin Xl) 300 mg PO DAILY [facility] Last Admin: 12/25/16 08:52 Dose: 300 mg Dextrose/Water (Dextrose 50% In Water) 50 ml IVPUSH ASDIRECTED PRN PRN Reason: Hypoglycemia Docusate Sodium (Colace) 100 mg PO BID PRN PRN Reason: Constipation Hydralazine HCl (Apresoline) 20 mg IVPUSH Q4H PRN PRN Reason: Hypertension Hydromorphone HCl (Dilaudid) 0.25 mg IVPUSH Q2H PRN PRN Reason: Pain (severe 7-10) Dextrose/Sodium Chloride (Dextrose 5%-Normal Saline) 1,000 mls @ 150 mls/hr IV ASDIRECTED [facility] Last Admin: 12/24/16 17:52 Dose: 150 mls/hr Promethazine HCl 12.5 mg/ (Sodium Chloride) 50.5 mls @ 100 mls/hr IV Q6H PRN PRN Reason: Nausea/Vomiting Sodium Chloride (Normal Saline) 1,000 mls @ 125 [facility] Last Admin: 12/25/16 01:48 Dose: 125 mls/hr Insulin Aspart (Novolog) 0 unit SUBCUT QIDACANDBED [facility] PRN Reason: Protocol Last Admin: 12/25/16 08:53 Dose: 5 units Insulin Detemir (Levemir) 10 unit SUBCUT BID PRN PRN Reason: BLOOD SUGAR Lorazepam (Ativan) 2 mg IVPUSH Q4H PRN PRN Reason: Seizures Lorazepam (Ativan) 1 mg IV Q6H PRN PRN Reason: Anxiety Magnesium Sulfate (Pharmacy To Dose - Magnesium Replacement) 1 dose .XX ASDIRECTED [facility] Metoprolol Tartrate (Lopressor) 5 mg IVPUSH Q4H PRN PRN Reason: Tachycardia Ondansetron HCl (Zofran) 4 mg IV Q4H PRN PRN Reason: Nausea/Vomiting Ondansetron HCl (Zofran Odt) 4 mg PO ASDIRECTED PRN PRN Reason: Nausea Cyanocobolamin/Folic Ac/Vitamin B6 ( Folbee) 1 each PO DAILY [facility] Polyethylene Glycol (Miralax) 17 gm PO DAILY PRN PRN Reason: Constipation Potassium Chloride (Pharmacy To Dose - Potassium Replacement) 1 dose .XX ASDIRECTED [facility] Senna/Docusate Sodium (Senna Plus) 1 tab PO BID PRN PRN Reason: Constipation Temazepam (Restoril) 15 mg PO BEDTIME PRN PRN Reason: Insomnia Thyroid ([place] Thyroid) 150 mg PO ACBREAKFAST [facility] Last Admin: 12/25/16 06:02 Dose: 150 mg Discontinued Medications Acetaminophen/Butalbital/Caffeine (Fioricet 325-50-40 Mg) 1 tab PO ONETIME ONE Stop: 12/25/16 00:36 Last Admin: 12/25/16 01:49 Dose: 1 tab Diatrizoate Meglum/Diatrizoate Sod (Gastrografin 37%) 90 ml PO ONETIME ONE Stop: 12/24/16 20:53 Last Admin: 12/24/16 21:16 Dose: 90 ml Hydromorphone HCl (Dilaudid) 1 mg IVPUSH ONETIME ONE Stop: 12/24/16 19:25 Last Admin: 12/24/16 19:36 Dose: 1 mg Magnesium Sulfate 2 gm/ Premix 50 mls @ 50 mls/hr IV ONETIME ONE Stop: 12/24/16 19:09 Last Admin: 12/24/16 18:21 Dose: 50 mls/hr Iopamidol (Isovue-370 (76%)) 100 ml IVPUSH ONETIME ONE Stop: 12/24/16 20:53 Last Admin: 12/24/16 21:16 Dose: 100 ml Ondansetron HCl (Zofran) 4 mg IVPUSH ONETIME ONE Stop: 12/24/16 17:33 Last Admin: 12/24/16 17:54 Dose: 4 mg Pneumococcal Polyvalent Vaccine (Pneumovax 23) 0.5 ml IM .ONCE ONE Stop: 12/25/16 00:55 Temazepam (Restoril) 15 mg PO BEDTIME PRN PRN Reason: Sleep - Exam Quality Assessment: DVT Prophylaxis General: Alert, Oriented, Cooperative, No Acute Distress HEENT: Pupils Equal, EOMI, Mucous Membr. Moist/[place] Neck: Supple Lungs: Clear to Auscultation, Normal Respiratory Effort, Decreased Breath Sounds (bases) GI/Abdominal Exam: Normal Bowel Sounds, Soft, Non-Tender (Female) Exam: Deferred Extremities: No Pedal Edema, Normal Capillary Refill Peripheral Pulses: 2+: Dorsalis Pedis (L), Dorsalis Pedis (R) Neurological: No New Focal Deficit Psy/Mental Status: Alert, Normal Affect, Normal Mood - Problem List & Annotations (1) Hypoglycemic insulin reaction in type 1 diabetes mellitus SNOMED Code(s): 85718315 Code(s): E10.649 - TYPE 1 DIABETES MELLITUS WITH HYPOGLYCEMIA WITHOUT COMA Status: Acute Priority: High Current Visit: Yes (2) Aspiration into lower respiratory tract SNOMED Code(s): 014992888 Code(s): T17.800A - UNSP FOREIGN BODY IN OTH PRT RESP TRACT CAUSING ASPHYX, INIT Status: Acute Priority: High Current Visit: Yes Qualifiers: Encounter type: initial encounter Qualified Code(s): T17.800A - Unspecified foreign body in other parts of respiratory tract causing asphyxiation, initial encounter (3) Hypomagnesemia SNOMED Code(s): 375428837 Code(s): E83.42 - HYPOMAGNESEMIA Status: Acute Priority: High Current Visit: Yes (4) Fall SNOMED Code(s): 2849964 Code(s): W19.XXXA - UNSPECIFIED FALL, INITIAL ENCOUNTER Status: Acute Current Visit: Yes Qualifiers: Encounter type: initial encounter Qualified Code(s): W19.XXXA - Unspecified fall, initial encounter (5) Contusion of back SNOMED Code(s): 81109803 Code(s): S20.229A - CONTUSION OF UNSPECIFIED BACK WALL OF THORAX, INIT ENCNTR Status: Acute Current Visit: Yes Qualifiers: Encounter type: initial encounter Laterality: unspecified laterality Qualified Code(s): S20.229A - Contusion of unspecified back wall of thorax, initial encounter - Problem List Review Problem List Initiated/Reviewed/Updated: Yes - Plan Plan:: I/P: Hypoglycemia in type I diabetic -A1C 8.1 -On insulin pump; restarted insulin pump prior to arrival in ED -Reports 3-4 hypoglycemic episodes per month -Continue home Levemir -Low dose insulin protocol -QID, AC, and Bedtime glucose checks -CDE and Dietitian consult ordered -Phenergan for nausea and vomiting PRN -Diabetic diet Aspiration into lower respiratory tract -Reportedly given PIXI sticks and orange juice by while unresponsive due to hypoglycemic episode -Inflammatory changes noted and lungs on abdominal CT. -WBC 19.08 although this may be due to stress reaction -Mild low-grade fever; Cough which pt. states is worsening throughout day - non-productive -Fup CXR today -Levaquin IV for now due to elevated WBC/CRP, low grade temp, radiography findings. Add Florastor also. Hypomagnesemia -Magnesium 1.4 mg/dl in ED -2 gm IV magnesium supplementation given in ED -Pharmacy to monitor and replete Chronic: Depression Mood-swings Type I DM - since age 7 Hypothyroidism - stable Obesity hx/o gastric bypass in 2013 Plan: Admit to medical floor as observation status CM/SW for discharge planning--Fup with PCP within one week of discharge as well as CDE. PT/OT DVT/PE prophylaxis: SCDs Consult spiritual care Other orders as indicated above Home medications as ordered Routine AM labs Code Status: Full code. Her PCP is Dr. Cartagena at [facility].
[2016-12-25] MEDS: Saccharomyces Boulardii (Probiotic) 250 MG Cap PO SCH ×2 (12:07→21:25)
[2016-12-25] MEDS: Lisinopril 2.5 MG Tab PO SCH (12:09)
[2016-12-25] MEDS: Levofloxacin/Dextrose 5%-Water 750 MG in Premix Bag 1 BAG IV SCH (12:14)
[2016-12-25] MEDS ORDERED: LORazepam 1 MG Tab PO PRN (12:16)
[2016-12-25] MEDS ORDERED: Ketorolac 30 MG/ML SDV IVPUSH ONE (12:17)
[2016-12-25] MEDS: HYDROmorphone 0.5 MG/0.5 ML Syringe IVPUSH PRN (20:05)
[2016-12-25] MEDS: Insulin Detemir 100 Units/ML 3 ML Pen SUBCUT SCH (20:34)
[2016-12-25] MEDS: CYANOCOBALAMIN PO SCH (20:59)
[2016-12-25] MEDS: FOLIC ACID PO SCH (20:59)
[2016-12-25] MEDS: [UNRECOGNIZED DRUG - OTHER] PO SCH (20:59)
[2016-12-26] MEDS: Acetaminophen/HYDROcodone 325-5 MG Tab PO PRN ×2 (03:37→07:36)
[2016-12-26] MEDS: Thyroid 60 MG Tab PO SCH (06:13)
--- NOTE | 2016-12-26 07:08 | PCM.PN ---
- General Info Date of Service: 12/26/16 Admission Dx/Problem (Free Text): Savanna is seen this morning, eating her breakfast. She is feeling better this morning. No n/v or abd pain. Back pain is much improved this morning, last night she states "my kidneys really hurt". Sugars are up now; overnight 208, 415 and 354 this morning. CRP is up to 13.5, WBC is improved from 19K to 13K. A1C is 8.[address] Mare Cartagena at [facility] in [place]. Subjective Update: Follow Up Functional Status: Reports: Pain Controlled, Tolerating Diet, Ambulating, Urinating. Denies: New Symptoms - Patient Data Vitals - Most Recent: Last Vital Signs Temp 36.7 C 12/26/16 03:15 Pulse 84 12/26/16 03:15 Resp 14 12/26/16 03:15 BP 131/98 H 12/26/16 03:15 Pulse Ox 94 L 12/26/16 03:15 Weight - Most Recent: 105.324 kg I&O - Last 24 Hours: Intake & Output 12/25/16 12/26/16 12/26/16 22:59 06:59 14:59 Intake Total 2379 2120 Output Total 400 Balance 2379 1720 Lab Results Last 24 Hours: Laboratory Results - last 24 hr 12/25/16 12/25/16 12/25/16 Range/Units 05:56 05:56 12:16 WBC 13.23 H (3.98-10.04) K/mm3 RBC 3.55 L (3.98-5.22) M/mm3 Hgb 9.0 L (11.2-15.7) gm/L Hct 29.8 L (34.1-44.9) % MCV 83.9 (79.4-94.8) fl MCH 25.4 L (25.6-32.2) pg MCHC 30.2 L (32.2-35.5) g/dl RDW Std Deviation 48.1 H (36.4-46.3) fL Plt Count 334 (182-369) K/mm3 MPV 12.2 (9.4-12.3) fl Neut % (Auto) 79.5 H (34.0-71.1) % Lymph % (Auto) 10.6 L (19.3-51.7) % [place] % (Auto) 6.7 (4.7-12.5) % Eos % (Auto) 2.7 (0.7-5.8) Baso % (Auto) 0.3 (0.1-1.2) % Neut # (Auto) 10.52 H (1.56-6.13) K/mm3 Lymph # (Auto) 1.40 (1.18-3.74) K/mm3 [place] # (Auto) 0.88 H (0.24-0.36) K/mm3 Eos # (Auto) 0.36 (0.04-0.36) K/mm3 Baso # (Auto) 0.04 (0.01-0.08) K/mm3 Sodium 135 L (136-145) mEq/L Potassium 4.4 (3.5-5.1) mEq/L Chloride 100 (98-107) mEq/L Carbon Dioxide 28 (21-32) mEq/L Anion Gap 11.4 (5-15) BUN 12 (7-18) mg/dL Creatinine 0.9 (0.55-1.02) mg/dL Est Cr Clr Drug Dosing 87.17 mL/min Estimated GFR (MDRD) > 60 (>60) mL/min BUN/Creatinine Ratio 13.3 L (14-18) Glucose 414 H (74-106) mg/dL POC Glucose 285 H (70-105) mg/dL Calcium 8.1 L (8.5-10.1) mg/dL Magnesium 2.0 (1.8-2.4) mg/dl C-Reactive Protein 13.5 H* (<1.0) mg/dL 12/25/16 12/25/16 12/25/16 Range/Units 16:45 18:37 21:22 WBC (3.98-10.04) K/mm3 RBC (3.98-5.22) M/mm3 Hgb (11.2-15.7) gm/L Hct (34.1-44.9) % MCV (79.4-94.8) fl MCH (25.6-32.2) pg MCHC (32.2-35.5) g/dl RDW Std Deviation (36.4-46.3) fL Plt Count (182-369) K/mm3 MPV (9.4-12.3) fl Neut % (Auto) (34.0-71.1) % Lymph % (Auto) (19.3-51.7) % [place] % (Auto) (4.7-12.5) % Eos % (Auto) (0.7-5.8) Baso % (Auto) (0.1-1.2) % Neut # (Auto) (1.56-6.13) K/mm3 Lymph # (Auto) (1.18-3.74) K/mm3 [place] # (Auto) (0.24-0.36) K/mm3 Eos # (Auto) (0.04-0.36) K/mm3 Baso # (Auto) (0.01-0.08) K/mm3 Sodium (136-145) mEq/L Potassium (3.5-5.1) mEq/L Chloride (98-107) mEq/L Carbon Dioxide (21-32) mEq/L Anion Gap (5-15) BUN (7-18) mg/dL Creatinine (0.55-1.02) mg/dL Est Cr Clr Drug Dosing mL/min Estimated GFR (MDRD) (>60) mL/min BUN/Creatinine Ratio (14-18) Glucose (74-106) mg/dL POC Glucose 219 H 331 H 278 H (70-105) mg/dL Calcium (8.5-10.1) mg/dL Magnesium (1.8-2.4) mg/dl C-Reactive Protein (<1.0) mg/dL 12/26/16 12/26/16 12/26/16 Range/Units 06:13 06:15 06:15 WBC 6.66 (3.98-10.04) K/mm3 RBC 3.50 L (3.98-5.22) M/mm3 Hgb 8.9 L (11.2-15.7) gm/L Hct 29.6 L (34.1-44.9) % MCV 84.6 (79.4-94.8) fl MCH 25.4 L (25.6-32.2) pg MCHC 30.1 L (32.2-35.5) g/dl RDW Std Deviation 48.4 H (36.4-46.3) fL Plt Count 312 (182-369) K/mm3 MPV 11.6 (9.4-12.3) fl Neut % (Auto) 66.8 (34.0-71.1) % Lymph % (Auto) 18.2 L (19.3-51.7) % [place] % (Auto) 8.9 (4.7-12.5) % Eos % (Auto) 5.3 (0.7-5.8) Baso % (Auto) 0.6 (0.1-1.2) % Neut # (Auto) 4.46 (1.56-6.13) K/mm3 Lymph # (Auto) 1.21 (1.18-3.74) K/mm3 [place] # (Auto) 0.59 H (0.24-0.36) K/mm3 Eos # (Auto) 0.35 (0.04-0.36) K/mm3 Baso # (Auto) 0.04 (0.01-0.08) K/mm3 Sodium 137 (136-145) mEq/L Potassium 4.8 (3.5-5.1) mEq/L Chloride 104 (98-107) mEq/L Carbon Dioxide 27 (21-32) mEq/L Anion Gap 10.8 (5-15) BUN 14 (7-18) mg/dL Creatinine 0.8 (0.55-1.02) mg/dL Est Cr Clr Drug Dosing 98.07 mL/min Estimated GFR (MDRD) > 60 (>60) mL/min BUN/Creatinine Ratio 17.5 (14-18) Glucose 274 H (74-106) mg/dL POC Glucose 310 H (70-105) mg/dL Calcium 8.2 L (8.5-10.1) mg/dL Magnesium 1.9 (1.8-2.4) mg/dl C-Reactive Protein 12.7 H* (<1.0) mg/dL Med Orders - Current: Current Medications Acetaminophen (Tylenol) 650 mg PO Q4H PRN PRN Reason: Pain (Mild 1-3)/fever Hydrocodone Bitart/Acetaminophen ([place]cd[place] 325-5 Mg) 1 tab PO Q4H PRN PRN Reason: Pain (moderate 4-6) Last Admin: 12/26/16 03:37 Dose: 1 tab Albuterol/Ipratropium (Duoneb 3.0-0.5 Mg/3 Ml) 3 ml NEB Q4H PRN PRN Reason: Shortness Of Breath/wheezing Bisacodyl (Dulcolax) 5 mg PO DAILY PRN PRN Reason: Constipation Bupropion HCl (Wellbutrin Xl) 300 mg PO DAILY [facility] Last Admin: 12/25/16 08:52 Dose: 300 mg Dextrose/Water (Dextrose 50% In Water) 50 ml IVPUSH ASDIRECTED PRN PRN Reason: Hypoglycemia Docusate Sodium (Colace) 100 mg PO BID PRN PRN Reason: Constipation Hydralazine HCl (Apresoline) 20 mg IVPUSH Q4H PRN PRN Reason: Hypertension Hydromorphone HCl (Dilaudid) 0.25 mg IVPUSH Q2H PRN PRN Reason: Pain (severe 7-10) Last Admin: 12/25/16 20:05 Dose: 0.25 mg Sodium Chloride (Normal Saline) 1,000 mls @ 125 mls/hr IV ASDIRECTED [facility] Last Admin: 12/25/16 21:48 Dose: 125 mls/hr Levofloxacin/Dextrose 750 mg/ (Premix) 150 mls @ 100 mls/hr IV Q24H [facility] Last Admin: 12/25/16 12:14 Dose: 100 mls/hr Insulin Aspart (Novolog) 0 unit SUBCUT QIDACANDBED [facility] PRN Reason: Protocol Last Admin: 12/25/16 21:41 Dose: 3 units Insulin Detemir (Levemir) 10 unit SUBCUT BID [facility] Last Admin: 12/25/16 20:34 Dose: Not Given Lisinopril (Prinivil) 2.5 mg PO DAILY [facility] Last Admin: 12/25/16 12:09 Dose: 2.5 mg Lorazepam (Ativan) 2 mg IVPUSH Q4H PRN PRN Reason: Seizures Lorazepam (Ativan) 1 mg IV Q6H PRN PRN Reason: Anxiety Lorazepam (Ativan) 1 mg PO BID PRN PRN Reason: Anxiety Last Admin: 12/25/16 19:12 Dose: 1 mg Magnesium Sulfate (Pharmacy To Dose - Magnesium Replacement) 1 dose .XX ASDIRECTED [facility] Metoprolol Tartrate (Lopressor) 5 mg IVPUSH Q4H PRN PRN Reason: Tachycardia Ondansetron HCl (Zofran) 4 mg IV Q4H PRN PRN Reason: Nausea/Vomiting Ondansetron HCl (Zofran Odt) 4 mg PO ASDIRECTED PRN PRN Reason: Nausea Cyanocobolamin/Folic Ac/Vitamin B6 ( Folbee) 1 each PO DAILY [facility] Last Admin: 12/25/16 20:59 Dose: Not Given Lamotrigine 25mg (Tablet) 75 each PO BID [facility] Last Admin: 12/25/16 21:25 Dose: 75 each Polyethylene Glycol (Miralax) 17 gm PO DAILY PRN PRN Reason: Constipation Potassium Chloride (Pharmacy To Dose - Potassium Replacement) 1 dose .XX ASDIRECTED [facility] Saccharomyces Boulardii (Florastor) 250 mg PO BID [facility] Last Admin: 12/25/16 21:25 Dose: 250 mg Senna/Docusate Sodium (Senna Plus) 1 tab PO BID PRN PRN Reason: Constipation Temazepam (Restoril) 15 mg PO BEDTIME PRN PRN Reason: Insomnia Thyroid ([place] Thyroid) 150 mg PO ACBREAKFAST [facility] Last Admin: 12/26/16 06:13 Dose: 150 mg Discontinued Medications Acetaminophen/Butalbital/Caffeine (Fioricet 325-50-40 Mg) 1 tab PO ONETIME ONE Stop: 12/25/16 00:36 Last Admin: 12/25/16 01:49 Dose: 1 tab Diatrizoate Meglum/Diatrizoate Sod (Gastrografin 37%) 90 ml PO ONETIME ONE Stop: 12/24/16 20:53 Last Admin: 12/24/16 21:16 Dose: 90 ml Hydromorphone HCl (Dilaudid) 1 mg IVPUSH ONETIME ONE Stop: 12/24/16 19:25 Last Admin: 12/24/16 19:36 Dose: 1 mg Dextrose/Sodium Chloride (Dextrose 5%-Normal Saline) 1,000 mls @ 150 mls/hr IV ASDIRECTED [facility] Last Admin: 12/24/16 17:52 Dose: 150 mls/hr Magnesium Sulfate 2 gm/ Premix 50 mls @ 50 mls/hr IV ONETIME ONE Stop: 12/24/16 19:09 Last Admin: 12/24/16 18:21 Dose: 50 mls/hr Promethazine HCl 12.5 mg/ (Sodium Chloride) 50.5 mls @ 100 mls/hr IV Q6H PRN PRN Reason: Nausea/Vomiting Insulin Detemir (Levemir) 10 unit SUBCUT BID PRN PRN Reason: BLOOD SUGAR Last Admin: 12/25/16 20:11 Dose: 10 units Iopamidol (Isovue-370 (76%)) 100 ml IVPUSH ONETIME ONE Stop: 12/24/16 20:53 Last Admin: 12/24/16 21:16 Dose: 100 ml Ketorolac Tromethamine (Toradol) 30 mg IVPUSH ONETIME ONE Stop: 12/25/16 12:18 Last Admin: 12/25/16 12:35 Dose: 30 mg Ondansetron HCl (Zofran) 4 mg IVPUSH ONETIME ONE Stop: 12/24/16 17:33 Last Admin: 12/24/16 17:54 Dose: 4 mg Pneumococcal Polyvalent Vaccine (Pneumovax 23) 0.5 ml IM .ONCE ONE Stop: 12/25/16 00:55 Temazepam (Restoril) 15 mg PO BEDTIME PRN PRN Reason: Sleep - My Orders Last 24 Hours: My Active Orders 12/25/16 11:35 Consult to Diabetic Nurse Specialist [CONS] Routine 12/25/16 21:00 Insulin Detemir [Levemir] 10 unit SUBCUT BID 12/26/16 07:07 Chest 1V Frontal [CR] Routine 12/27/16 05:11 CBC WITH AUTO DIFF [HEME] AM - Plan Plan:: I/P: Hypoglycemia in type I diabetic -A1C 8.1 -On insulin pump; restarted insulin pump prior to arrival in ED -Reports 3-4 hypoglycemic episodes per month -Continue home Levemir -Low dose insulin protocol -QID, AC, and Bedtime glucose checks -CDE and Dietitian consult ordered -Phenergan for nausea and vomiting PRN -Diabetic diet Aspiration into lower respiratory tract -Reportedly given PIXI sticks and orange juice by while unresponsive due to hypoglycemic episode -Inflammatory changes noted and lungs on abdominal CT. -WBC 19.08 although this may be due to stress reaction -Mild low-grade fever; Cough which pt. states is worsening throughout day - non-productive -Fup CXR today -Levaquin IV for now due to elevated WBC/CRP, low grade temp, radiography findings. Add Florastor also. Hypomagnesemia -Magnesium 1.4 mg/dl in ED -2 gm IV magnesium supplementation given in ED -Pharmacy to monitor and replete Chronic: Depression Mood-swings Type I DM - since age 7 Hypothyroidism - stable Obesity hx/o gastric bypass in 2013 Plan: Admit to medical floor as observation status CM/SW for discharge planning--Fup with PCP within one week of discharge as well as CDE. PT/OT DVT/PE prophylaxis: SCDs Consult spiritual care Other orders as indicated above Home medications as ordered Routine AM labs Code Status: Full code. Her PCP is Dr. Cartagena at [facility].
[2016-12-26] MEDS: Insulin Aspart 100 Units/ML 3 ML Pen SUBCUT SCH ×2 (07:37→11:23)
[2016-12-26] MEDS: Lisinopril 2.5 MG Tab PO SCH (08:44)
[2016-12-26] MEDS: buPROPion 150 MG Tab.ER PO SCH (08:44)
[2016-12-26] MEDS: Saccharomyces Boulardii (Probiotic) 250 MG Cap PO SCH (08:44)
[2016-12-26] MEDS: Insulin Detemir 100 Units/ML 3 ML Pen SUBCUT SCH (08:45)
[2016-12-26] MEDS: CYANOCOBALAMIN PO SCH (08:47)
[2016-12-26] MEDS: [UNRECOGNIZED DRUG - OTHER] PO SCH (08:47)
[2016-12-26] MEDS: FOLIC ACID PO SCH (08:47)
[2016-12-26] MEDS: Sodium Chloride 0.9% 1,000 ML IV SCH (09:20)
[2016-12-26] MEDS: HYDROmorphone 0.5 MG/0.5 ML Syringe IVPUSH PRN (09:21)
[2016-12-26] MEDS: Levofloxacin/Dextrose 5%-Water 750 MG in Premix Bag 1 BAG IV SCH (09:30)
--- NOTE | 2016-12-26 09:42 | CR ---
Chest: Portable view of the chest is obtained. Comparison: Previous chest x-ray of 12/24/16. Heart size and mediastinum are within normal limits. Lungs are clear. Bony structures are grossly intact. Impression: 1. Nothing acute is seen on portable chest x-ray. Findings within both lung bases on prior chest x-ray have resolved. Diagnostic code #1
--- NOTE | 2016-12-26 11:31 | PCM.DCSUM1 ---
Discharge Summary - Hospital Course Brief History: Savanna Weldon is a 36 yo white female with past medical hx/o Asthma, RA, Depression, Hypothyrodism, Obesity and DM1 who comes in with complaints of hypoglycemia and was admitted for presumptive pneumonia and medical treatment of her diabetes. - Discharge Data Discharge Date: 12/26/16 Discharge Disposition: Home, Self-Care 01 Condition: Good - Discharge Diagnosis/Problem(s) (1) Hypoglycemic insulin reaction in type 1 diabetes mellitus SNOMED Code(s): 31175527 ICD Code: E10.649 - TYPE 1 DIABETES MELLITUS WITH HYPOGLYCEMIA WITHOUT COMA Status: Resolved Priority: High (2) Situational anxiety SNOMED Code(s): 994146328 ICD Code: F41.8 - OTHER SPECIFIED ANXIETY DISORDERS Status: Chronic (3) Depression (emotion) SNOMED Code(s): 25672689 ICD Code: F32.9 - MAJOR DEPRESSIVE DISORDER, SINGLE EPISODE, UNSPECIFIED Status: Acute Qualifiers: Depression Type: reactive depression Qualified Code(s): F32.9 - Major depressive disorder, single episode, unspecified (4) Diabetes SNOMED Code(s): 92480960 ICD Code: E11.9 - TYPE 2 DIABETES MELLITUS WITHOUT COMPLICATIONS Status: Acute Qualifiers: Diabetes mellitus type: type 1 Diabetes mellitus complication status: with unspecified complications Qualified Code(s): E10.8 - Type 1 diabetes mellitus with unspecified complications (5) Hypothyroidism SNOMED Code(s): 92608702 ICD Code: E03.9 - HYPOTHYROIDISM, UNSPECIFIED Status: Acute Qualifiers: Hypothyroidism type: unspecified Qualified Code(s): E03.9 - Hypothyroidism , unspecified (6) Hypomagnesemia SNOMED Code(s): 165871956 ICD Code: E83.42 - HYPOMAGNESEMIA Status: Resolved Priority: High - Patient Summary/Data Operative Procedure(s) Performed: None Complications: None Consults: Consultations 12/25/16 11:35 Consult to Diabetic Nurse Specialist [CONS] Routine Labs Pending at D/C: None Recommended Follow-up Testing/Procedures: None Planned Operative Procedure(s) after DC: None Hospital Course: Patient was primarily admitted for medical management of hypoglycemia. She carried a past medical hx/o DM1 that was poorly controlled. She was on insulin pump and was being followed by a local perioperative educator. Unfortunately, her diabetes remained uncontrolled. In fact, her A1C on admission was a point higher from her baseline of 7 (according to her) 3 months ago. While in the floor, patient was provided insulin and ADA diet. Dietary and diabetic nurse educator were consulted for further help with diabetes management. Her hospital course was uncomplicated. The rest of her chronic medical illness remained stable during his admission. She did however was treated with presumptive pneumonia but further tests and follow-up chest x-ray showed no infiltrates or obvious consolidation. Patient was stable on the day of discharge. She was advised to resume her insulin regimen as initially directed. She was highly encouraged to see an ruling technician in [place] for further management of her fragile type 1 diabetes. The patient expressed understanding and in agreement with the plans as discussed above. All questions were answered. - Patient Instructions Diet: Heart Healthy Diet, Usual Diet as Tolerated, Diabetic Diet Activity: As Tolerated Driving: May Drive Today Showering/Bathing: May Shower Notify Provider of: Fever, Increased Pain, Nausea and/or Vomiting Other/Special Instructions: - Please resume all home medications. - Recommend you keep your endocrinology appointment in [place], [place]. - Continue routine glucose check as directed by your Diabectic Educator. - Call or follow up with your PCP for any questions or concerns right after discharge - Discharge Plan Home Medications: Home Meds Cyanocobalamin/FA/Pyridoxine [Folbee] 1 tab PO DAILY 10/27/16 [History] Insulin Glargine,Hum.Rec.Anlog [Lantus Solostar] 20 unit SUBCUT QPM PRN [History] Lisinopril 2.5 mg PO DAILY 10/27/16 [History] Thyroid,Pork [[place] Thyroid] 30 mg PO DAILY 10/27/16 [History] Thyroid,Pork [[place] Thyroid] 120 mg PO DAILY 10/27/16 [History] buPROPion HCl [Wellbutrin Xl] 300 mg PO DAILY 10/27/16 [History] Ondansetron [Zofran ODT] 4 mg PO ASDIRECTED PRN 12/24/16 [History] LORazepam [Ativan] 1 mg PO BID PRN 12/25/16 [History] lamoTRIgine [Lamotrigine] 75 mg PO BID 12/25/16 [History] Patient Handouts: Insulin Treatment for Diabetes, Tips for Eating Away From Home If You Have Diabetes, Diabetes and Sick Day Management, Hyperglycemia, Hyperglycemia, [id number], Insulin Pumps, How to Avoid Diabetes Problems, Blood Glucose Monitoring, Adult, Hypoglycemia, [id number] Referrals: Rena Iqbal [Other] Mare Cartagena MD [Primary Care Provider] - - Discharge Summary/Plan Comment DC Time >30 min.: Yes (45 mins) Discharge Summary/Plan Comment: Discharge to Home - General Info Date of Service: 12/26/16 Admission Dx/Problem (Free Text: Hypoglycemia Subjective Update: Follow Up Functional Status: Reports: Pain Controlled, Tolerating Diet, Ambulating, Urinating - Review of Systems General: Denies: Fever, Weakness, Fatigue, Malaise, Chills HEENT: Reports: No Symptoms Pulmonary: Denies: Shortness of Breath Cardiovascular: Denies: Chest Pain Gastrointestinal: Denies: Abdominal Pain, Nausea, Vomiting Genitourinary: Reports: No Symptoms Musculoskeletal: Reports: No Symptoms, Other (body aches) Skin: Reports: No Symptoms Neurological: Denies: Confusion, Pre-Existing Deficit, Difficulty Walking, Gait Disturbance Psychiatric: Reports: Anxiety. Denies: Confusion, Agitation, Cravings, Suicidal Ideation Systems Review Comment: No significant overnight or acute issues. She complaints of body aches. Her WBC is now back to normal. She has no new complaints. - Patient Data Vitals - Most Recent: Last Vital Signs Temp 36.3 C 12/26/16 07:57 Pulse 98 12/26/16 07:57 Resp 18 12/26/16 07:57 BP 107/74 12/26/16 08:44 Pulse Ox 99 12/26/16 07:57 Weight - Most Recent: 105.324 kg I&O - Last 24 hours: Intake & Output 12/25/16 12/26/16 12/26/16 22:59 06:59 14:59 Intake Total 2379 2120 Output Total 400 Balance 2379 1720 Lab Results - Last 24 hrs: Laboratory Results - last 24 hr 12/25/16 12/25/16 12/25/16 Range/Units 12:16 16:45 18:37 WBC (3.98-10.04) K/mm3 RBC (3.98-5.22) M/mm3 Hgb (11.2-15.7) gm/L Hct (34.1-44.9) % MCV (79.4-94.8) fl MCH (25.6-32.2) pg MCHC (32.2-35.5) g/dl RDW Std Deviation (36.4-46.3) fL Plt Count (182-369) K/mm3 MPV (9.4-12.3) fl Neut % (Auto) (34.0-71.1) % Lymph % (Auto) (19.3-51.7) % [place] % (Auto) (4.7-12.5) % Eos % (Auto) (0.7-5.8) Baso % (Auto) (0.1-1.2) % Neut # (Auto) (1.56-6.13) K/mm3 Lymph # (Auto) (1.18-3.74) K/mm3 [place] # (Auto) (0.24-0.36) K/mm3 Eos # (Auto) (0.04-0.36) K/mm3 Baso # (Auto) (0.01-0.08) K/mm3 Sodium (136-145) mEq/L Potassium (3.5-5.1) mEq/L Chloride (98-107) mEq/L Carbon Dioxide (21-32) mEq/L Anion Gap (5-15) BUN (7-18) mg/dL Creatinine (0.55-1.02) mg/dL Est Cr Clr Drug Dosing mL/min Estimated GFR (MDRD) (>60) mL/min BUN/Creatinine Ratio (14-18) Glucose (74-106) mg/dL POC Glucose 285 H 219 H 331 H (70-105) mg/dL Calcium (8.5-10.1) mg/dL Magnesium (1.8-2.4) mg/dl C-Reactive Protein (<1.0) mg/dL 12/25/16 12/26/16 12/26/16 Range/Units 21:22 06:13 06:15 WBC (3.98-10.04) K/mm3 RBC (3.98-5.22) M/mm3 Hgb (11.2-15.7) gm/L Hct (34.1-44.9) % MCV (79.4-94.8) fl MCH (25.6-32.2) pg MCHC (32.2-35.5) g/dl RDW Std Deviation (36.4-46.3) fL Plt Count (182-369) K/mm3 MPV (9.4-12.3) fl Neut % (Auto) (34.0-71.1) % Lymph % (Auto) (19.3-51.7) % [place] % (Auto) (4.7-12.5) % Eos % (Auto) (0.7-5.8) Baso % (Auto) (0.1-1.2) % Neut # (Auto) (1.56-6.13) K/mm3 Lymph # (Auto) (1.18-3.74) K/mm3 [place] # (Auto) (0.24-0.36) K/mm3 Eos # (Auto) (0.04-0.36) K/mm3 Baso # (Auto) (0.01-0.08) K/mm3 Sodium 137 (136-145) mEq/L Potassium 4.8 (3.5-5.1) mEq/L Chloride 104 (98-107) mEq/L Carbon Dioxide 27 (21-32) mEq/L Anion Gap 10.8 (5-15) BUN 14 (7-18) mg/dL Creatinine 0.8 (0.55-1.02) mg/dL Est Cr Clr Drug Dosing 98.07 mL/min Estimated GFR (MDRD) > 60 (>60) mL/min BUN/Creatinine Ratio 17.5 (14-18) Glucose 274 H (74-106) mg/dL POC Glucose 278 H 310 H (70-105) mg/dL Calcium 8.2 L (8.5-10.1) mg/dL Magnesium 1.9 (1.8-2.4) mg/dl C-Reactive Protein 12.7 H* (<1.0) mg/dL 12/26/16 12/26/16 Range/Units 06:15 11:07 WBC 6.66 (3.98-10.04) K/mm3 RBC 3.50 L (3.98-5.22) M/mm3 Hgb 8.9 L (11.2-15.7) gm/L Hct 29.6 L (34.1-44.9) % MCV 84.6 (79.4-94.8) fl MCH 25.4 L (25.6-32.2) pg MCHC 30.1 L (32.2-35.5) g/dl RDW Std Deviation 48.4 H (36.4-46.3) fL Plt Count 312 (182-369) K/mm3 MPV 11.6 (9.4-12.3) fl Neut % (Auto) 66.8 (34.0-71.1) % Lymph % (Auto) 18.2 L (19.3-51.7) % [place] % (Auto) 8.9 (4.7-12.5) % Eos % (Auto) 5.3 (0.7-5.8) Baso % (Auto) 0.6 (0.1-1.2) % Neut # (Auto) 4.46 (1.56-6.13) K/mm3 Lymph # (Auto) 1.21 (1.18-3.74) K/mm3 [place] # (Auto) 0.59 H (0.24-0.36) K/mm3 Eos # (Auto) 0.35 (0.04-0.36) K/mm3 Baso # (Auto) 0.04 (0.01-0.08) K/mm3 Sodium (136-145) mEq/L Potassium (3.5-5.1) mEq/L Chloride (98-107) mEq/L Carbon Dioxide (21-32) mEq/L Anion Gap (5-15) BUN (7-18) mg/dL Creatinine (0.55-1.02) mg/dL Est Cr Clr Drug Dosing mL/min Estimated GFR (MDRD) (>60) mL/min BUN/Creatinine Ratio (14-18) Glucose (74-106) mg/dL POC Glucose 329 H (70-105) mg/dL Calcium (8.5-10.1) mg/dL Magnesium (1.8-2.4) mg/dl C-Reactive Protein (<1.0) mg/dL Med Orders - Current: Current Medications Acetaminophen (Tylenol) 650 mg PO Q4H PRN PRN Reason: Pain (Mild 1-3)/fever Hydrocodone Bitart/Acetaminophen ([place] 325-5 Mg) 1 tab PO Q4H PRN PRN Reason: Pain (moderate 4-6) Last Admin: 12/26/16 07:36 Dose: 1 tab Albuterol/Ipratropium (Duoneb 3.0-0.5 Mg/3 Ml) 3 ml NEB Q4H PRN PRN Reason: Shortness Of Breath/wheezing Bisacodyl (Dulcolax) 5 mg PO DAILY PRN PRN Reason: Constipation Bupropion HCl (Wellbutrin Xl) 300 mg PO DAILY [facility] Last Admin: 12/26/16 08:44 Dose: 300 mg Dextrose/Water (Dextrose 50% In Water) 50 ml IVPUSH ASDIRECTED PRN PRN Reason: Hypoglycemia Docusate Sodium (Colace) 100 mg PO BID PRN PRN Reason: Constipation Hydralazine HCl (Apresoline) 20 mg IVPUSH Q4H PRN PRN Reason: Hypertension Hydromorphone HCl (Dilaudid) 0.25 mg IVPUSH Q2H PRN PRN Reason: Pain (severe 7-10) Last Admin: 12/26/16 09:21 Dose: 0.25 mg Sodium Chloride (Normal Saline) 1,000 mls @ 125 mls/hr IV ASDIRECTED [facility] Last Admin: 12/26/16 09:20 Dose: 125 mls/hr Insulin Aspart (Novolog) 0 unit SUBCUT QIDACANDBED [facility] PRN Reason: Protocol Last Admin: 12/26/16 11:23 Dose: 3 units Insulin Detemir (Levemir) 10 unit SUBCUT BID [facility] Last Admin: 12/26/16 08:45 Dose: 10 units Lisinopril (Prinivil) 2.5 mg PO DAILY [facility] Last Admin: 12/26/16 08:44 Dose: 2.5 mg Lorazepam (Ativan) 2 mg IVPUSH Q4H PRN PRN Reason: Seizures Lorazepam (Ativan) 1 mg IV Q6H PRN PRN Reason: Anxiety Lorazepam (Ativan) 1 mg PO BID PRN PRN Reason: Anxiety Last Admin: 12/25/16 19:12 Dose: 1 mg Magnesium Sulfate (Pharmacy To Dose - Magnesium Replacement) 1 dose .XX ASDIRECTED [facility] Metoprolol Tartrate (Lopressor) 5 mg IVPUSH Q4H PRN PRN Reason: Tachycardia Ondansetron HCl (Zofran) 4 mg IV Q4H PRN PRN Reason: Nausea/Vomiting Ondansetron HCl (Zofran Odt) 4 mg PO ASDIRECTED PRN PRN Reason: Nausea Cyanocobolamin/Folic Ac/Vitamin B6 ( Folbee) 1 each PO DAILY [facility] Last Admin: 12/26/16 08:47 Dose: Not Given Lamotrigine 25mg (Tablet) 75 each PO BID [facility] Last Admin: 12/26/16 08:46 Dose: 75 each Polyethylene Glycol (Miralax) 17 gm PO DAILY PRN PRN Reason: Constipation Potassium Chloride (Pharmacy To Dose - Potassium Replacement) 1 dose .XX ASDIRECTED [facility] Saccharomyces Boulardii (Florastor) 250 mg PO BID [facility] Last Admin: 12/26/16 08:44 Dose: 250 mg Senna/Docusate Sodium (Senna Plus) 1 tab PO BID PRN PRN Reason: Constipation Temazepam (Restoril) 15 mg PO BEDTIME PRN PRN Reason: Insomnia Thyroid ([place] Thyroid) 150 mg PO ACBREAKFAST [facility] Last Admin: 12/26/16 06:13 Dose: 150 mg Discontinued Medications Acetaminophen/Butalbital/Caffeine (Fioricet 325-50-40 Mg) 1 tab PO ONETIME ONE Stop: 12/25/16 00:36 Last Admin: 12/25/16 01:49 Dose: 1 tab Diatrizoate Meglum/Diatrizoate Sod (Gastrografin 37%) 90 ml PO ONETIME ONE Stop: 12/24/16 20:53 Last Admin: 12/24/16 21:16 Dose: 90 ml Hydromorphone HCl (Dilaudid) 1 mg IVPUSH ONETIME ONE Stop: 12/24/16 19:25 Last Admin: 12/24/16 19:36 Dose: 1 mg Dextrose/Sodium Chloride (Dextrose 5%-Normal Saline) 1,000 mls @ 150 mls/hr IV ASDIRECTED [facility] Last Admin: 12/24/16 17:52 Dose: 150 mls/hr Magnesium Sulfate 2 gm/ Premix 50 mls @ 50 mls/hr IV ONETIME ONE Stop: 12/24/16 19:09 Last Admin: 12/24/16 18:21 Dose: 50 mls/hr Promethazine HCl 12.5 mg/ (Sodium Chloride) 50.5 mls @ 100 mls/hr IV Q6H PRN PRN Reason: Nausea/Vomiting Levofloxacin/Dextrose 750 mg/ (Premix) 150 mls @ 100 mls/hr IV Q24H NEL Last Admin: 12/26/16 09:30 Dose: 100 mls/hr Insulin Detemir (Levemir) 10 unit SUBCUT BID PRN PRN Reason: BLOOD SUGAR Last Admin: 12/25/16 20:11 Dose: 10 units Iopamidol (Isovue-370 (76%)) 100 ml IVPUSH ONETIME ONE Stop: 12/24/16 20:53 Last Admin: 12/24/16 21:16 Dose: 100 ml Ketorolac Tromethamine (Toradol) 30 mg IVPUSH ONETIME ONE Stop: 12/25/16 12:18 Last Admin: 12/25/16 12:35 Dose: 30 mg Ondansetron HCl (Zofran) 4 mg IVPUSH ONETIME ONE Stop: 12/24/16 17:33 Last Admin: 12/24/16 17:54 Dose: 4 mg Pneumococcal Polyvalent Vaccine (Pneumovax 23) 0.5 ml IM .ONCE ONE Stop: 12/25/16 00:55 Temazepam (Restoril) 15 mg PO BEDTIME PRN PRN Reason: Sleep - Exam General: Reports: Alert, Oriented, Cooperative, No Acute Distress HEENT: Reports: Pupils Equal, Pupils Reactive, EOMI, Mucous Membr. Moist/[place] Neck: Reports: Supple, Trachea Midline, No JVD, No Thyromegaly Lungs: Reports: Clear to Auscultation, Normal Respiratory Effort Cardiovascular: Reports: Regular Rate, Regular Rhythm GI/Abdominal Exam: Normal Bowel Sounds, Soft, Non-Tender, No Organomegaly, No Distention, No Abnormal Bruit, No Mass, Other (Obese) (Female) Exam: Deferred Rectal (Female) Exam: Deferred Back Exam: Reports: Normal Inspection, Decreased Range of Motion Extremities: Normal Inspection, Normal Range of Motion, Non-Tender, No Pedal Edema, Normal Capillary Refill Skin: Reports: Warm, Dry, Intact Neurological: Reports: No New Focal Deficit Psy/Mental Status: Reports: Alert, Normal Affect, Normal Mood *Q Meaningful Use (DIS) - VTE *Q VTE Criteria *Q: - Stroke *Q Stroke Criteria *Q: - AMI *Q AMI Criteria *Q:
[2016-12-26 11:52] VITALS: BP 124/76
== END 2016-12-26 12:27 | disposition home or self-care (01) | DRG 420 ==
LOC: JD.ED 16:54 → MERGE 23:29 → JD.MS 23:29
PROVIDERS: ADMIT Internal Medicine; ATTEND Internal Medicine
DX: E10.649 Type 1 diabetes mellitus with hypoglycemia without coma (principal); Z79.4 Long term (current) use of insulin; Z96.41 Presence of insulin pump (external) (internal); E03.9 Hypothyroidism, unspecified; E83.42 Hypomagnesemia; E66.9 Obesity, unspecified; F32.9 Major depressive disorder, single episode, unspecified; Z88.8 Allergy status to other drugs, medicaments and biological substances; Z87.891 Personal history of nicotine dependence; S20.229A Contusion of unspecified back wall of thorax, initial encounter; W18.2XXA Fall in (into) shower or empty bathtub, initial encounter; Y92.9 Unspecified place or not applicable; T17.800A Unspecified foreign body in other parts of respiratory tract causing asphyxiation, initial encounter; Z79.899 Other long term (current) drug therapy; M06.9 Rheumatoid arthritis, unspecified; F41.8 Other specified anxiety disorders
CPT/HCPCS: 36415; 71010; 71010-26; 74177; 74177-26; 80048; 80053; 81001; 81025; 82962; 83036; 83605; 83735; 84443; 85025; 86140; 96361; 96365; 96375; 97161-GP; 97165-GO; 99285; 99285-25; A9270; A9270-GY; J1170; J1815-GY; J1885; J1956; J2405; J3475; J7040; J7042; Q9963; Q9967

== ENCOUNTER 2017-03-21 00:25 | Emergency (ER) | payer BC, OTHER ==
[2017-03-21 00:50] VITALS: BP 132/85
[2017-03-21] MEDS ORDERED: Sodium Chloride 0.9% 1,000 ML IV SCH (01:45)
[2017-03-21] MEDS ORDERED: fentaNYL 100 MCG/2 ML SDV IVPUSH ONE ×3 (01:46→05:01)
[2017-03-21] MEDS ORDERED: Ondansetron 4 MG/2 ML SDV IVPUSH ONE ×2 (01:46→05:00)
--- NOTE | 2017-03-21 01:51 | EDM.PDOC ---
ED HPI GENERAL MEDICAL PROBLEM - General Chief Complaint: Gastrointestinal Problem Stated Complaint: VOMITING STOOL Time Seen by Provider: 03/21/17 01:32 Source of Information: Reports: Patient History Limitations: Reports: No Limitations - History of Present Illness INITIAL COMMENTS - FREE TEXT/NARRATIVE: This is a 37-year-old female. For the last couple of days she's been having abdominal cramping with some mild nausea. Yesterday with the cramping became nausea and vomiting. She says she gets upper abdominal cramping and then she starts vomiting and then the cramping seems to ease up. She says the stuff she is vomiting up looks and smells like stool. She's got no history of gastric obstruction but she does have a history of gastric bypass about 3 years ago. She has not passed any gas or stool for the last 2 days. Due to these symptoms she comes to the ER for evaluation. She denies any fever or chills she denies any cough or congestion. Bilateral Upper Abdomen Pain Score (Numeric/FACES): 5 - Related Data Allergies Allergy/AdvReac Type Severity Reaction Status Date / Time promethazine AdvReac Unknown Anaphylactic Verified 03/21/17 00:51 Shock Home Meds: Home Meds Cyanocobalamin/FA/Pyridoxine [Folbee] 1 tab PO DAILY 10/27/16 [History] Insulin Glargine,Hum.Rec.Anlog [Lantus Solostar] 20 unit SUBCUT QPM PRN [History] Lisinopril 2.5 mg PO DAILY 10/27/16 [History] Thyroid,Pork [[place] Thyroid] 30 mg PO DAILY 10/27/16 [History] Thyroid,Pork [[place] Thyroid] 120 mg PO DAILY 10/27/16 [History] buPROPion HCl [Wellbutrin Xl] 300 mg PO DAILY 10/27/16 [History] Ondansetron [Zofran ODT] 4 mg PO ASDIRECTED PRN 12/24/16 [History] lamoTRIgine [Lamotrigine] 75 mg PO BID 12/25/16 [History] Past Medical History HEENT History: Reports: Impaired Vision Other HEENT History: corrected with glasses Cardiovascular History: Reports: Hypertension Respiratory History: Reports: Asthma Gastrointestinal History: Reports: None 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: Musculoskeletal History: Reports: RA Other Musculoskeletal History: will be seeing rheumatoid arthritis specialist this month to see if she has rheumatoid arthritis Psychiatric History: Reports: Depression, Mood Swings Endocrine/Metabolic History: Reports: Diabetes, Type I, Hypothyroidism, Obesity/ BMI 30+ Hematologic History: Reports: Anemia - Infectious Disease History Infectious Disease History: Reports: Chicken Pox - Past Surgical History HEENT Surgical History: Reports: Oral Surgery, Tonsillectomy GI Surgical History: Reports: Bariatric Procedure, Cholecystectomy Female Surgical History: Reports: Section Social & Family History - Family History Family Medical History: Noncontributory - Tobacco Use Smoking Status *Q: Former Smoker Years of Tobacco use: 10 Packs/Tins Daily: 0.1 Used Tobacco, but Quit: Yes Month Tobacco Last Used: 10 years Second Hand Smoke Exposure: No - Caffeine Use Caffeine Use: Reports: Coffee - Recreational Drug Use Recreational Drug Use: No - Living Situation & Occupation Living situation: Reports: , with Spouse, with Family (2 kids) 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 Denies: Constipation, Diarrhea, Flatus : Reports: No Symptoms Musculoskeletal: Reports: No Symptoms Skin: Reports: No Symptoms Neurological: Reports: No Symptoms Psychiatric: Reports: No Symptoms Hematologic/Lymphatic: Reports: No Symptoms ED EXAM, GI/ABD - Physical Exam Exam: See Below Exam Limited By: No Limitations General Appearance: Alert, WD/WN, Mild Distress Eyes: Bilateral: Normal Appearance Ears: Normal External Exam Nose: Normal Inspection Throat/Mouth: Normal Inspection, Normal Lips, Normal Voice, No Airway Compromise Head: Normocephalic Neck: Supple Respiratory/Chest: No Respiratory Distress, Lungs Clear, Normal Breath Sounds Cardiovascular: Regular Rate, Rhythm, No Murmur GI/Abdominal Exam: Soft, Other (Bowel sounds are hypoactive with episodes of hyper active, she is sore in the upper abdomen but I do not feel any masses there is no rebound noted, she does not have the typical distended abdomen of an obstruction, there is no guarding. No rebound.). No: Distended, Guarding, Rigid, Rebound Back Exam: Normal Inspection, Full Range of Motion Extremities: Normal Inspection, Normal Range of Motion Neurological: Alert, Oriented Psychiatric: Anxious Skin Exam: Warm, Dry Course - Vital Signs Last Recorded V/S: Last Vital Signs Temp 97.3 F 03/21/17 00:44 Pulse 105 H 03/21/17 00:44 Resp 18 03/21/17 00:44 BP 132/85 03/21/17 00:44 Pulse Ox 97 03/21/17 00:44 - Orders/Labs/Meds Orders: Active Orders 24 hr Category Date Time Status Abdomen Pelvis w Cont [CT] Stat Exams 03/21/17 01:45 Taken Sodium Chloride 0.9% [Normal Saline] 1,000 ml Med 03/21/17 01:45 Active IV ASDIRECTED Sodium Chloride 0.9% [Normal Saline] 1,000 ml Med 03/21/17 05:26 Active IV ONETIME Medication Orders Sodium Chloride (Normal Saline) 1,000 mls @ 500 mls/hr IV ASDIRECTED NEL Last Admin: 03/21/17 02:03 Dose: 500 mls/hr Sodium Chloride (Normal Saline) 1,000 mls @ 500 mls/hr IV ONETIME ONE Stop: 03/21/17 07:25 Last Admin: 03/21/17 05:33 Dose: 500 mls/hr Labs: Laboratory Tests 03/21/17 03/21/17 Range/Units 01:54 01:54 WBC 6.20 (3.98-10.04) K/mm3 RBC 4.27 (3.98-5.22) M/mm3 Hgb 11.4 (11.2-15.7) gm/L Hct 36.8 (34.1-44.9) % MCV 86.2 (79.4-94.8) fl MCH 26.7 (25.6-32.2) pg MCHC 31.0 L (32.2-35.5) g/dl RDW Std Deviation 55.9 H (36.4-46.3) fL Plt Count 367 (182-369) K/mm3 MPV 11.5 (9.4-12.3) fl Neut % (Auto) 55.0 (34.0-71.1) % Lymph % (Auto) 29.7 (19.3-51.7) % Baxter % (Auto) 9.7 (4.7-12.5) % Eos % (Auto) 4.5 (0.7-5.8) Baso % (Auto) 1.1 (0.1-1.2) % Neut # (Auto) 3.41 (1.56-6.13) K/mm3 Lymph # (Auto) 1.84 (1.18-3.74) K/mm3 Baxter # (Auto) 0.60 H (0.24-0.36) K/mm3 Eos # (Auto) 0.28 (0.04-0.36) K/mm3 Baso # (Auto) 0.07 (0.01-0.08) K/mm3 Sodium 139 (136-145) mEq/L Potassium 4.2 (3.5-5.1) mEq/L Chloride 101 (98-107) mEq/L Carbon Dioxide 26 (21-32) mEq/L Anion Gap 16.2 H (5-15) BUN 12 (7-18) mg/dL Creatinine 1.0 (0.55-1.02) mg/dL Est Cr Clr Drug Dosing 77.70 mL/min Estimated GFR (MDRD) > 60 (>60) mL/min BUN/Creatinine Ratio 12.0 L (14-18) Glucose 280 H (74-106) mg/dL Calcium 9.3 (8.5-10.1) mg/dL Total Bilirubin 0.5 (0.2-1.0) mg/dL AST 14 L (15-37) U/L ALT 22 (14-59) U/L Alkaline Phosphatase 99 (46-116) U/L Total Protein 7.6 (6.4-8.2) g/dl Albumin 3.9 (3.4-5.0) g/dl Globulin 3.7 gm/dL Albumin/Globulin Ratio 1.1 (1-2) Lipase 117 (73-393) U/L Meds: Medications Generic Name Dose Route Start Last Admin Trade Name Freq PRN Reason Stop Dose Admin Sodium Chloride 1,000 mls @ 500 mls/hr 03/21/17 01:45 03/21/17 02:03 Normal Saline IV 500 mls/hr ASDIRECTED NEL Administration Sodium Chloride 1,000 mls @ 500 mls/hr 03/21/17 05:26 03/21/17 05:33 Normal Saline IV 03/21/17 07:25 500 mls/hr ONETIME ONE Administration Discontinued Medications Generic Name Dose Route Start Last Admin Trade Name Babak PRN Reason Stop Dose Admin Fentanyl 50 mcg 03/21/17 01:46 03/21/17 02:04 Sublimaze IVPUSH 03/21/17 01:47 50 mcg ONETIME ONE Administration Fentanyl 50 mcg 03/21/17 02:59 03/21/17 03:03 Sublimaze IVPUSH 03/21/17 03:00 50 mcg ONETIME ONE Administration Fentanyl Confirm 03/21/17 03:07 03/21/17 03:12 Sublimaze Administered 03/21/17 03:08 Not Given Dose 100 mcg .ROUTE .STK-MED ONE Fentanyl 50 mcg 03/21/17 05:01 03/21/17 05:17 Sublimaze IVPUSH 03/21/17 05:02 50 mcg ONETIME ONE Administration Iopamidol 125 ml 03/21/17 02:53 03/21/17 03:16 Isovue-300 (61%) IVPUSH 03/21/17 02:54 125 ml ONETIME ONE Administration Ondansetron HCl 4 mg 03/21/17 01:46 03/21/17 02:03 Zofran IVPUSH 03/21/17 01:47 4 mg ONETIME ONE Administration Ondansetron HCl 4 mg 03/21/17 05:00 03/21/17 05:15 Zofran IVPUSH 03/21/17 05:01 4 mg ONETIME ONE Administration Sodium Chloride 10 ml 03/21/17 02:53 03/21/17 03:18 Saline Flush FLUSH 03/21/17 02:54 10 ml ONETIME ONE Administration - Radiology Interpretation Free Text/Narrative:: CT scan of her abdomen and pelvis shows a small bowel obstruction jejunal stanislav limb with a transition point proximal to the distal small bowel anastomosis. - Re-Assessments/Exams Free Text/Narrative Re-Assessment/Exam: 03/21/17 04:55 Spoke to the patient regarding the CT scan results with a small bowel obstruction. I will speak to the surgeon inventory control manager for Dr. Cho that did her gastric bypass surgery 3 years ago since the obstruction appears to be at the bypass anastomosis. 03/21/17 04:58 I spoke to the patient regarding her transfer to [facility] in [place] and she is good with this. Departure - Departure Time of Disposition: 06:30 Disposition: DC/Tfer to Acute Hospital 02 Condition: Fair Clinical Impression: Small bowel obstruction, History of Stanislav-en-Y gastric bypass, Abdominal cramps , IDDM (insulin dependent diabetes mellitus) Nausea and vomiting Qualifiers: Vomiting type: vomiting of fecal matter Qualified Code(s): R11.13 - Vomiting of fecal matter - Discharge Information Additional Instructions: I spoke with Dr. Fox was the surgeon inventory control manager at [facility] in [place] and he accepts the patient in transport. Due to the several numbers of transports we've had to [place] this AM we had a difficult time finding an transport for her but we finally have and she is on her way to [facility] in [place] ED Communication - ED Communication Date/Time Date: 03/21/17 Time Called: 04:57 - Discussed Case With (1) Discussed Case With (1): Admitting Provider Person/s Notified (1): Dr. Riley (Accepts the patient in transport ) - My Orders Last 24 Hours: My Active Orders 03/21/17 01:45 Abdomen Pelvis w Cont [CT] Stat Sodium Chloride 0.9% [Normal Saline] 1,000 ml IV ASDIRECTED 03/21/17 05:26 Sodium Chloride 0.9% [Normal Saline] 1,000 ml IV ONETIME - Assessment/Plan Last 24 Hours: My Active Orders 03/21/17 01:45 Abdomen Pelvis w Cont [CT] Stat Sodium Chloride 0.9% [Normal Saline] 1,000 ml IV ASDIRECTED 03/21/17 05:26 Sodium Chloride 0.9% [Normal Saline] 1,000 ml IV ONETIME
[2017-03-21] MEDS ORDERED: Iopamidol 612 MG/ML 150 ML Bottle IVPUSH ONE (02:53)
[2017-03-21] MEDS ORDERED: Sodium Chloride 0.9% 10 ML Syringe FLUSH ONE (02:53)
[2017-03-21] MEDS ORDERED: fentaNYL 100 MCG/2 ML SDV ONE (03:07)
[2017-03-21] MEDS ORDERED: Sodium Chloride 0.9% 1,000 ML IV ONE (05:26)
--- NOTE | 2017-03-22 17:47 | CT ---
CT abdomen and pelvis Technique: Multiple axial sections were obtained from above the dome of the diaphragm inferiorly through the pubic symphysis. Intravenous contrast was utilized. No oral contrast has been given. Comparison: Prior CT abdomen and pelvis exam of 12/24/16. Findings: Dilated proximal and mid small bowel is seen. Previous gastric surgery is noted. Transition point of the small bowel dilatation appears slightly proximal to surgical anastomotic sutures within the small bowel. Fair amount of fluid is seen within the cul-de-sac. Small hiatal hernia is seen. Fluid seen within the distal esophagus/hiatal hernia compatible with reflux. Liver shows no focal parenchymal abnormality. Spleen appears within normal limits. Adrenal glands show no nodule. Kidneys show symmetric contrast enhancement without hydronephrosis or mass. Aorta shows no aneurysmal dilatation. No retroperitoneal adenopathy or mesenteric abnormalities are seen. No pelvic mass or adenopathy is seen. Appendix not visualized. Delayed images show contrast within the bladder. Bone window settings were reviewed which appear within normal limits for the patient's age. Impression: 1. Previous gastric surgery which is similar to prior exam. 2. Dilated proximal and mid small bowel loops compatible with small bowel obstruction. Transition point appears to be proximal to anastomotic sutures and findings most likely represent obstruction from adhesions. 3. Free fluid within the pelvis most likely reactive from the small bowel process. 4. Small hiatal hernia with gastroesophageal reflux seen into the hiatal hernia and distal esophagus. Diagnostic code #5 Agree with preliminary report issued by [email or web address] ([facility] preliminary report dictated on 03/21/17, 5:08 AM Central Time)
== END 2017-03-21 06:30 ==
LOC: MERGE 00:25 → JD.ED 00:25
DX: K56.609 Unspecified intestinal obstruction, unspecified as to partial versus complete obstruction (principal); R11.13 Vomiting of fecal matter; E10.8 Type 1 diabetes mellitus with unspecified complications; E03.9 Hypothyroidism, unspecified; E66.9 Obesity, unspecified; I10 Essential (primary) hypertension; J45.909 Unspecified asthma, uncomplicated; M06.9 Rheumatoid arthritis, unspecified; Z68.32 Body mass index [BMI] 32.0-32.9, adult; Z98.84 Bariatric surgery status; Z88.8 Allergy status to other drugs, medicaments and biological substances; Z79.899 Other long term (current) drug therapy; Z87.891 Personal history of nicotine dependence
CPT/HCPCS: 36415; 74177; 80053; 83690; 85025; 96361; 96374; 96375; 96376; 99285; J2405; J3010; J7040; J7050; Q9967

== ENCOUNTER 2017-05-31 11:18 | Emergency (ER) | payer OTHER ==
[2017-05-31 11:44] VITALS: BP 150/110
[2017-05-31] MEDS ORDERED: Sodium Chloride 0.9% 1,000 ML IV ONE (11:51)
[2017-05-31] MEDS ORDERED: Ondansetron 4 MG/2 ML SDV IVPUSH ONE (11:51)
--- NOTE | 2017-05-31 12:04 | EDM.PDOC ---
ED HPI GENERAL MEDICAL PROBLEM - General Chief Complaint: Gastrointestinal Problem Stated Complaint: DIABETIC/NAUSEA/VOMITING Time Seen by Provider: 05/31/17 11:42 Source of Information: Reports: Patient History Limitations: Reports: No Limitations - History of Present Illness INITIAL COMMENTS - FREE TEXT/NARRATIVE: Patient is a 37 y/o female who presents to the E.D. with generalized body aches , nausea, and diarrhea for the past 1 wk. Patient states her son had similar symptoms a wk prior that have since resolved. Patient has had a poor appetite but has attempted to drink plenty of fluids. States at onset had a fever of 101.2. None noted thereafter. She has been extremely nauseated and has been taking zofran at first but ran out. She denies any dizziness, cp,sorethroat, sob, abdominal pain, blood in stool, and or dysuria. She is a type 1 diabetic with last A1C of 7. Denies being . PMH: DM, B12 deficient 2nd to gastric bypass,depression/fatigue Medications: Insulin, Wellbutrin, B12, iron, lisinopril, Zofran, and control Surgical history: Gastric bypass, and repair of petersons hernia, gallbladder Middle Abdominal Pain Score (Numeric/FACES): 7 - Related Data Allergies Allergy/AdvReac Type Severity Reaction Status Date / Time promethazine Allergy Severe Anaphylactic Verified 05/31/17 11:26 Shock Home Meds: Home Meds buPROPion [Wellbutrin] 300 mg PO DAILY 05/08/16 [History] Ferrous Sulfate [Iron] 325 mg PO DAILY 07/11/16 [History] Insulin Pump/Infus. 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: Musculoskeletal History: Reports: RA Other Musculoskeletal History: will be seeing rheumatoid arthritis specialist this month to see if she has rheumatoid arthritis Neurological History: Reports: None Psychiatric History: Reports: Depression, Mood Swings Endocrine/Metabolic History: Reports: Diabetes, Type I, Hypothyroidism, Obesity/ BMI 30+ Hematologic History: Reports: Anemia - Infectious Disease History Infectious Disease History: Reports: Chicken Pox - Past Surgical History HEENT Surgical History: Reports: Oral Surgery, Tonsillectomy GI Surgical History: Reports: Bariatric Procedure, Cholecystectomy Female Surgical History: Reports: Section Dermatological Surgical History: Reports: None Social & Family History - Family History Family Medical History: Noncontributory Cardiac: Reports: [place] Musculoskeletal: Reports: RA - Tobacco Use Smoking Status *Q: Never Smoker Years of Tobacco use: 10 Packs/Tins Daily: 0.1 Used Tobacco, but Quit: Yes Month/Year Tobacco Last Used: 10 years Second Hand Smoke Exposure: No - Caffeine Use Caffeine Use: Reports: Coffee, None - Recreational Drug Use Recreational Drug Use: No - Living Situation & Occupation Living situation: Reports: with Family, , with Spouse 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 Denies: Abdominal Pain, Black Stool, Bloody Stool, Constipation, Hematemesis, Hematochezia, Vomiting : Denies: Dysuria Musculoskeletal: Reports: Muscle Pain (generalized) Skin: Reports: No Symptoms Neurological: Reports: No Symptoms ED EXAM, GI/ABD - Physical Exam Exam: See Below Exam Limited By: No Limitations General Appearance: Alert, WD/WN, Mild Distress Eyes: Bilateral: Normal Appearance Ears: Hearing Grossly Normal Nose: Normal Inspection Throat/Mouth: Normal Voice, No Airway Compromise, Other (Moist oral mucosa) Head: Atraumatic, Normocephalic Neck: Normal Inspection, Supple, Non-Tender, Full Range of Motion Respiratory/Chest: No Respiratory Distress, Lungs Clear, Normal Breath Sounds, No Accessory Muscle Use, Chest Non-Tender Cardiovascular: Normal Peripheral Pulses, Regular Rate, Rhythm, No Murmur GI/Abdominal Exam: Normal Bowel Sounds, Soft, Non-Tender, No Organomegaly, No Distention Back Exam: Normal Inspection. No: CVA Tenderness (L), CVA Tenderness (R) Neurological: Alert, Oriented, CN II-XII Intact, Normal Cognition, No Motor/ Sensory Deficits Psychiatric: Normal Affect, Normal Mood Skin Exam: Warm, Dry, Intact, Normal Color, No Rash Course - Vital Signs Last Recorded V/S: Last Vital Signs Temp 97.3 F 05/31/17 11:24 Pulse 100 05/31/17 11:24 Resp 17 05/31/17 11:24 BP 150/110 H 05/31/17 11:24 Pulse Ox 99 05/31/17 11:24 Orthostatic Blood Pressure [ 143/90 Standing] Orthostatic Blood Pressure [ 143/90 Supine] - Orders/Labs/Meds Orders: Active Orders 24 hr Category Date Time Status Orthostatic Vital Signs [RC] ASDIRECTED Care 05/31/17 11:52 Active Abdomen 2V AP Flat Upright [CR] Stat Exams 05/31/17 11:51 Taken HCG QUALITATIVE,URINE [URCHEM] Stat Lab 05/31/17 13:20 Ordered UA W/MICROSCOPIC [URIN] Stat Lab 05/31/17 11:51 Ordered Labs: Laboratory Tests 05/31/17 05/31/17 Range/Units 10:27 11:40 WBC 5.02 (3.98-10.04) K/mm3 RBC 3.96 L (3.98-5.22) M/mm3 Hgb 11.5 (11.2-15.7) gm/L Hct 35.7 (34.1-44.9) % MCV 90.2 (79.4-94.8) fl MCH 29.0 (25.6-32.2) pg MCHC 32.2 (32.2-35.5) g/dl RDW Std Deviation 49.2 H (36.4-46.3) fL Plt Count 315 (182-369) K/mm3 MPV 11.4 (9.4-12.3) fl Neutrophils % (Manual) 55 (40-60) % Band Neutrophils % 0 (0-10) % Lymphocytes % (Manual) 41 H (20-40) % Atypical Lymphs % 0 % Monocytes % (Manual) 3 (2-10) % Eosinophils % (Manual) 0 L (0.7-5.8) % Basophils % (Manual) 1 (0.1-1.2) Platelet Estimate Adequate RBC Morph Comment Normal Sodium 138 (136-145) mEq/L Potassium 3.4 L (3.5-5.1) mEq/L Chloride 103 (98-107) mEq/L Carbon Dioxide 31 (21-32) mEq/L Anion Gap 7.4 (5-15) BUN 9 (7-18) mg/dL Creatinine 0.9 (0.55-1.02) mg/dL Est Cr Clr Drug Dosing 86.33 mL/min Estimated GFR (MDRD) > 60 (>60) mL/min BUN/Creatinine Ratio 10.0 L (14-18) Glucose 147 H (74-106) mg/dL Calcium 8.3 L (8.5-10.1) mg/dL Total Bilirubin 0.2 (0.2-1.0) mg/dL AST 19 (15-37) U/L ALT 22 (14-59) U/L Alkaline Phosphatase 91 (46-116) U/L Total Protein 6.4 (6.4-8.2) g/dl Albumin 3.0 L (3.4-5.0) g/dl Globulin 3.4 gm/dL Albumin/Globulin Ratio 0.9 L (1-2) Lipase 63 L (73-393) U/L Meds: Medications Discontinued Medications Generic Name Dose Route Start Last Admin Trade Name Freq PRN Reason Stop Dose Admin Sodium Chloride 1,000 mls @ 999 mls/hr 05/31/17 11:51 05/31/17 11:57 Normal Saline IV 05/31/17 12:51 999 mls/hr ONETIME ONE Administration Ondansetron HCl 4 mg 05/31/17 11:51 05/31/17 11:57 Zofran IVPUSH 05/31/17 11:52 4 mg ONETIME ONE Administration - Re-Assessments/Exams Free Text/Narrative Re-Assessment/Exam: IV established with Zofran 4 mg IVP and also an ns 1 liter. Initial labs and studies include CBC, chem 14, lipase, UA, 2 view of the abdomen x-ray. Orthostatic vitals: negative X-ray reviewed: non specific stool and gas pattern. Nothing acute. Reviewed with Dr. Johnson. Labs reviewed: CBC, C14, and lipase were essentially normal with no concerns. 1315 Patient has not produced a UA sample. She has no voiding symptoms. She is feeling much better and is ready to be discharged home. Will discharge patient home with instructions as documented. Departure - Departure Time of Disposition: 13:34 Disposition: Home, Self-Care 01 Condition: Good Clinical Impression: Gastroenteritis, Diarrhea, Nausea - Discharge Information Prescriptions: Ondansetron [Zofran ODT] 4 mg PO Q6H PRN #12 tab.dis PRN Reason: Nausea/Vomiting Instructions: Nausea, Adult, Dehydration, Adult, [id number], Viral Gastroenteritis, Adult, [id number] Referrals: Beatrice Cabello, EVP [employer] [Primary Care Provider] - Forms: ED Department Discharge Additional Instructions: Continue to push the fluids including: Gatorade, Powerade, Pedialyte, water. Utilize Zofran as needed for nausea and vomiting as prescribed. Refrain from fruit juices, off fruits and vegetables, and dairy products. Stick with a bland diet until diarrhea subsides. May advance thereafter to normal diet. Follow-up with PCP Thursday or Thursday for reevaluation. Return to the ED if you develop any new or worsening symptoms. - My Orders Last 24 Hours: My Active Orders 05/31/17 11:51 Abdomen 2V AP Flat Upright [CR] Stat UA W/MICROSCOPIC [URIN] Stat 05/31/17 11:52 Orthostatic Vital Signs [RC] ASDIRECTED 05/31/17 13:20 HCG QUALITATIVE,URINE [URCHEM] Stat - Assessment/Plan Last 24 Hours: My Active Orders 05/31/17 11:51 Abdomen 2V AP Flat Upright [CR] Stat UA W/MICROSCOPIC [URIN] Stat 05/31/17 11:52 Orthostatic Vital Signs [RC] ASDIRECTED 05/31/17 13:20 HCG QUALITATIVE,URINE [URCHEM] Stat
--- NOTE | 2017-06-01 09:20 | CR ---
Abdomen: Supine and upright views of the abdomen were obtained. Comparison: Previous study of 10/24/15. Slightly dilated gas-filled small bowel loops are seen. Bowel gas pattern is otherwise unremarkable. No free air is seen. Bony structures are within normal limits. Small calcifications are seen within the pelvis compatible with phleboliths. Prior cholecystectomy is seen. Impression: 1. Findings suspicious for mid to distal partial small bowel obstruction. Diagnostic code #3
== END 2017-05-31 13:47 | disposition home or self-care (01) ==
LOC: JD.ED 11:18
DX: K52.9 Noninfective gastroenteritis and colitis, unspecified (principal); I10 Essential (primary) hypertension; E10.9 Type 1 diabetes mellitus without complications; E03.9 Hypothyroidism, unspecified; Z88.8 Allergy status to other drugs, medicaments and biological substances; Z79.899 Other long term (current) drug therapy; Z87.891 Personal history of nicotine dependence
CPT/HCPCS: 36415; 74019; 80053; 81001; 81025; 83690; 85025; 96361; 96374; 99284; J2405; J7040

== ENCOUNTER 2017-07-19 08:46 | Emergency (ER) | payer OTHER ==
--- NOTE | 2017-07-19 09:28 | EDM.PDOC ---
ED HPI GENERAL MEDICAL PROBLEM - General Chief Complaint: ENT Problem Stated Complaint: LEFT SIDE TOOTH PAIN/SWELLING Time Seen by Provider: 07/19/17 08:57 Source of Information: Reports: Patient History Limitations: Reports: No Limitations - History of Present Illness INITIAL COMMENTS - FREE TEXT/NARRATIVE: The patient presents with left sided facial pain and edema with dental pain. She has a fractured tooth and the other night she bit down on something that caused her pain and now there is more pain and edema to the left upper teeth. She has type I diabetes and her blood sugars have been high. She has no measurable temp here but she feels warm. Onset: Gradual Duration: Day(s): Location: Reports: Face Quality: Reports: Sharp Severity: Severe Improves with: Reports: None Worsens with: Reports: None Associated Symptoms: Reports: Fever/Chills Treatments MEDICAL DOCTOR: Reports: Acetaminophen Left Upper Tooth/Teeth Pain Score (Numeric/FACES): 3 - Related Data Allergies Allergy/AdvReac Type Severity Reaction Status Date / Time promethazine Allergy Severe Anaphylactic Verified 07/19/17 08:57 Shock Home Meds: Home Meds buPROPion [Wellbutrin] 300 mg PO DAILY 05/08/16 [History] Insulin Pump/Infus. Set/Meter [Accu-Chek Combo System] 1 each MC ASDIRECTED 03/28 [History] Cyanocobalamin/FA/Pyridoxine [Folbee] 1 tab PO DAILY 10/27/16 [History] Lisinopril 2.5 mg PO BEDTIME 10/27/16 [History] Ondansetron [Zofran ODT] 4 mg PO Q6H PRN #12 tab.dis 05/31/17 [Rx] Multivitamin [Flintstones] 1 piece PO DAILY 07/19/17 [History] Thyroid,Pork [Nature-Throid] 65 mg PO DAILY 07/19/17 [History] Past Medical History HEENT History: Reports: Impaired Vision Other HEENT History: corrected with glasses Cardiovascular History: Reports: Other (See Below) Other Cardiovascular History: states does not have HTN, is on Lisinopril "to protect my kidneys." Respiratory History: Reports: Asthma, Pneumonia, Recurrent Gastrointestinal History: Reports: Other (See Below) Other Gastrointestinal History: 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 - Infectious Disease History Infectious Disease History: Reports: Chicken Pox - Past Surgical History HEENT Surgical History: Reports: Oral Surgery, Tonsillectomy GI Surgical History: Reports: Bariatric Procedure, Cholecystectomy, Hernia Repair/Other, Other (See Below) Other GI Surgeries/Procedures: laproscopic repair of hernia. 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) ED ROS ENT - Review of Systems Review Of Systems: See Below Constitutional: Reports: Fever HEENT: Reports: Dental Pain (Left upper teeth) Respiratory: Reports: No Symptoms Cardiovascular: Reports: No Symptoms Endocrine: Reports: No Symptoms GI/Abdominal: Reports: No Symptoms : Reports: No Symptoms Musculoskeletal: Reports: No Symptoms ED EXAM, ENT - Physical Exam Exam: See Below Exam Limited By: No Limitations General Appearance: Alert, No Apparent Distress Ears: Normal External Exam Nose: Normal Inspection Mouth/Throat: Other (Fracture 2nd molar in the left upper gum line with edema and pain upon palpation.) Head: Other (Left sided facial swelling) Neck: Normal Inspection Respiratory/Chest: No Respiratory Distress Course - Vital Signs Last Recorded V/S: Last Vital Signs Temp 98.5 F 07/19/17 08:50 Pulse 118 H 07/19/17 08:50 Resp 16 07/19/17 08:50 BP 140/89 07/19/17 08:50 Pulse Ox 98 07/19/17 08:50 - Orders/Labs/Meds Orders: Active Orders 24 hr Category Date Time Status cefTRIAXone 1 GM with Lidocaine 1% 2.1 ML IM Med 07/19/17 09:30 Ordered cefTRIAXone [Rocephin] 1 gm Lidocaine 1% [Xylocaine 1%] 2.1 ml IM Q24H - Re-Assessments/Exams Free Text/Narrative Re-Assessment/Exam: 07/19/17 09:26 She has a dental abscess. I have ordered a shot of rocehin and I will get her on some pen VK and some percocet for pain. Departure - Departure Time of Disposition: 09:30 Disposition: Home, Self-Care 01 Condition: Good Clinical Impression: Dental abscess, Pain, dental - Discharge Information Referrals: Beatrice Cabello, [facility] TAB [Primary Care Provider] - Additional Instructions: Take the medication as prescribed. Put warm compresses on your face 2 to 3 times per day for 3 to 5 days. Follow up with a dentist in [facility]. Please return if you are worse. - My Orders Last 24 Hours: My Active Orders 07/19/17 09:30 cefTRIAXone 1 GM with Lidocaine 1% 2.1 ML IM cefTRIAXone [Rocephin] 1 gm Lidocaine 1% [Xylocaine 1%] 2.1 ml IM Q24H - Assessment/Plan Last 24 Hours: My Active Orders 07/19/17 09:30 cefTRIAXone 1 GM with Lidocaine 1% 2.1 ML IM cefTRIAXone [Rocephin] 1 gm Lidocaine 1% [Xylocaine 1%] 2.1 ml IM Q24H
[2017-07-19] MEDS ORDERED: cefTRIAXone 1 GM, Lidocaine 1% 2.1 ML IM SCH ×2 (09:30)
[2017-07-19 10:05] VITALS: BP 149/95
== END 2017-07-19 09:50 | disposition home or self-care (01) ==
LOC: JD.ED 08:46
DX: K04.7 Periapical abscess without sinus (principal); K03.81 Cracked tooth; E10.9 Type 1 diabetes mellitus without complications; J45.909 Unspecified asthma, uncomplicated; E03.9 Hypothyroidism, unspecified; Z79.899 Other long term (current) drug therapy; Z88.8 Allergy status to other drugs, medicaments and biological substances
CPT/HCPCS: 96372; 99283; J0696

== ENCOUNTER 2019-02-22 08:05 | Emergency (ER) | payer OTHER ==
[2019-02-22] MEDS: Sodium Chloride 0.9% 10 ML Syringe FLUSH PRN ×2 (08:18→13:17)
[2019-02-22] MEDS ORDERED: Metoclopramide 10 MG/2 ML SDV IVPUSH ONE (08:30)
[2019-02-22] MEDS ORDERED: Sodium Chloride 0.9% 1,000 ML IV SCH (08:30)
[2019-02-22] MEDS ORDERED: diphenhydrAMINE 50 MG/ML SDV IVPUSH ONE (08:32)
[2019-02-22] MEDS ORDERED: Ketorolac 30 MG/ML SDV IVPUSH ONE (08:32)
--- NOTE | 2019-02-22 08:53 | EDM.PDOC ---
ED HPI GENERAL MEDICAL PROBLEM - General Chief Complaint: Neurological Problem Stated Complaint: DOUBLE VISION Time Seen by Provider: 02/22/19 08:22 Source of Information: Reports: Patient History Limitations: Reports: No Limitations - History of Present Illness INITIAL COMMENTS - FREE TEXT/NARRATIVE: The patient presents with double vision and balance issues. She said this all started last night at 9pm. So last time known well was 02/21/2019 at 9pm. She felt she was just tired and she went to bed but it persisted this morning. Her blood sugar was over 600 this morning and she gave herself 10 units of insulin. She has a headache and double vision. She also is off balance. She has no numbness or weakness. She has no fever, chills, cough, chest pain, shortness of breath, abdominal pain, nausea or vomiting. She is type I diabetic and has an insulin pump. Onset: Gradual Duration: Day(s): (Last night) Location: Reports: Head Quality: Reports: Ache Severity: Moderate Improves with: Reports: None Worsens with: Reports: None Associated Symptoms: Reports: Headaches. Denies: Chest Pain, Cough, Fever/ Chills, Nausea/Vomiting, Shortness of Breath Forehead Pain Score (Numeric/FACES): 3 - Related Data Allergies Allergy/AdvReac Type Severity Reaction Status Date / Time No Known Allergies Allergy Verified 02/22/19 08:11 Home Meds: Home Meds Insulin Pump/Infus. Set/Meter [Accu-Chek Combo System] 1 each MC ASDIRECTED 03/28 [History] Lisinopril 2.5 mg PO BEDTIME 10/27/16 [History] Ondansetron [Zofran ODT] 4 mg PO Q6H PRN #12 tab.dis 05/31/17 [Rx] Multivitamin [Flintstones] 1 piece PO DAILY 07/19/17 [History] Brexpiprazole [Rexulti] 1 mg PO DAILY 01/02/18 [History] Levothyroxine 100 mcg PO ACBREAKFAST 01/02/18 [History] buPROPion [Wellbutrin] 100 mg PO ACLUNCH 01/02/18 [History] buPROPion [Wellbutrin] 200 mg PO ACBREAKFAST 01/02/18 [History] Past Medical History HEENT History: Reports: Impaired Vision Other HEENT History: wears glasses Cardiovascular History: Reports: Other (See Below) Other Cardiovascular History: states does not have HTN, is on Lisinopril "to protect my kidneys." Respiratory History: Reports: Asthma, Bronchitis, Recurrent, Pneumonia, Recurrent Gastrointestinal History: Reports: Other (See Below) Other Gastrointestinal History: 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 - Infectious Disease History Infectious Disease History: Reports: Chicken Pox - Past Surgical History HEENT Surgical History: Reports: Oral Surgery, Tonsillectomy GI Surgical History: Reports: Bariatric Procedure, Cholecystectomy Female Surgical History: Reports: Section Dermatological Surgical History: Reports: None Social & Family History - Family History Family Medical History: Noncontributory Cardiac: Reports: [place] Musculoskeletal: Reports: RA - Tobacco Use Smoking Status *Q: Never Smoker Second Hand Smoke Exposure: No - Caffeine Use Caffeine Use: Reports: Coffee, Soda, Tea - Recreational Drug Use Recreational Drug Use: No - Living Situation & Occupation Living situation: Reports: , with Spouse, with Family (2 kids) 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, [employer]) ED ROS GENERAL - Review of Systems Review Of Systems: See Below Constitutional: Reports: No Symptoms HEENT: Reports: No Symptoms Respiratory: Reports: No Symptoms Cardiovascular: Reports: No Symptoms Endocrine: Reports: No Symptoms GI/Abdominal: Reports: No Symptoms : Reports: No Symptoms Musculoskeletal: Reports: No Symptoms Skin: Reports: No Symptoms Neurological: Reports: Headache, Other (Double vision) ED EXAM, NEURO - Physical Exam Exam: See Below Exam Limited By: No Limitations General Appearance: Alert, No Apparent Distress Eye Exam: Right Eye: Abnormal EOM (Right eye is slow to move), Vision Changes ( Double vision), Bilateral Eye: PERRL (Right is slow to react) Ears: Normal External Exam Nose: Normal Inspection Head Exam: Atraumatic, Normocephalic Neck: Normal Inspection, Supple, Non-Tender Respiratory/Chest: No Respiratory Distress, Lungs Clear, Normal Breath Sounds Cardiovascular: Regular Rate, Rhythm, No Edema, No Murmur GI/Abdominal: Soft, Non-Tender, No Organomegaly, No Mass Neurological: Alert, No Motor/Sensory Deficits, Oriented x 3, Other (Right pupil is slow to react and slow with extraocular movements) Course - Vital Signs Last Recorded V/S: Last Vital Signs Temp 97.7 F 02/22/19 08:10 Pulse 96 02/22/19 08:10 Resp 12 02/22/19 08:10 BP 109/70 02/22/19 08:10 Pulse Ox 99 02/22/19 08:10 - Orders/Labs/Meds Orders: Active Orders 24 hr Category Date Time Status Accu Check [Blood Glucose Check, Bedside] [RC] ONETIME Care 02/22/19 14:40 Active Cardiac Monitoring [RC] . DIRECTED Care 02/22/19 08:30 Active EKG Documentation Completion [RC] STAT Care 02/22/19 08:31 Active Peripheral IV Care [RC] . DIRECTED Care 02/22/19 08:32 Active Lactated Ringers [Ringers, Lactated] 1,000 ml Med 02/22/19 12:45 Active IV ASDIRECTED Sodium Chloride 0.9% [Normal Saline] 1,000 ml Med 02/22/19 08:30 Active IV .BOLUS Sodium Chloride 0.9% [Normal Saline] 100 ml Med 02/22/19 13:15 Active IV ASDIRECTED Sodium Chloride 0.9% [Saline Flush] Med 02/22/19 08:30 Active 10 ml FLUSH ASDIRECTED PRN ED Antiemetic Medication Reflex [OM.PC] Stat Oth 02/22/19 08:31 Ordered Peripheral IV Insertion Adult [OM.PC] Stat Oth 02/22/19 08:30 Ordered Medication Orders Sodium Chloride (Normal Saline) 1,000 mls @ 1,000 mls/hr IV .BOLUS NEL Last Admin: 02/22/19 09:02 Dose: 1,000 mls/hr Lactated Ringer's (Ringers, Lactated) 1,000 mls @ 150 mls/hr IV ASDIRECTED NEL Last Admin: 02/22/19 13:17 Dose: 150 mls/hr Sodium Chloride (Normal Saline) 100 mls @ 60 mls/hr IV ASDIRECTED NEL Last Admin: 02/22/19 13:17 Dose: 60 mls/hr Sodium Chloride (Saline Flush) 10 ml FLUSH ASDIRECTED PRN PRN Reason: Keep Vein Open Last Admin: 02/22/19 13:17 Dose: 10 ml Admin: 02/22/19 08:18 Dose: 10 ml Labs: Laboratory Tests 02/22/19 02/22/19 02/22/19 Range/Units 08:18 08:18 08:18 WBC 12.70 H (3.98-10.04) K/mm3 RBC 4.43 (3.98-5.22) M/mm3 Hgb 13.5 D (11.2-15.7) gm/dl Hct 40.8 (34.1-44.9) % MCV 92.1 D (79.4-94.8) fl MCH 30.5 (25.6-32.2) pg MCHC 33.1 (32.2-35.5) g/dl RDW Std Deviation 44.3 (36.4-46.3) fL Plt Count 341 D (182-369) K/mm3 MPV 11.9 (9.4-12.3) fl Neut % (Auto) 77.2 H (34.0-71.1) % Lymph % (Auto) 12.1 L (19.3-51.7) % [place] % (Auto) 10.0 (4.7-12.5) % Eos % (Auto) 0.3 L (0.7-5.8) Baso % (Auto) 0.2 (0.1-1.2) % Neut # (Auto) 9.81 H (1.56-6.13) K/mm3 Lymph # (Auto) 1.54 (1.18-3.74) K/mm3 [place] # (Auto) 1.27 H (0.24-0.36) K/mm3 Eos # (Auto) 0.04 (0.04-0.36) K/mm3 Baso # (Auto) 0.02 (0.01-0.08) K/mm3 Manual Slide Review Abnormal smear VBG pH (7.30-7.40) Sodium 131 L (136-145) mEq/L Potassium 3.8 (3.5-5.1) mEq/L Chloride 94 L (98-107) mEq/L Carbon Dioxide 29 (21-32) mEq/L Anion Gap 11.8 (5-15) BUN 19 H (7-18) mg/dL Creatinine 1.5 H (0.55-1.02) mg/dL Est Cr Clr Drug Dosing 50.79 mL/min Estimated GFR (MDRD) 39 (>60) mL/min BUN/Creatinine Ratio 12.7 L (14-18) Glucose 394 H (74-106) mg/dL POC Glucose (70-105) mg/dL Serum Osmolality 300 (280-300) mosm/kg Lactic Acid (0.4-2.0) mmol/L Calcium 9.0 (8.5-10.1) mg/dL Magnesium 1.9 (1.8-2.4) mg/dl Total Bilirubin 0.4 (0.2-1.0) mg/dL AST 14 L (15-37) U/L ALT 47 (14-59) U/L Alkaline Phosphatase 132 H (46-116) U/L Troponin I < 0.017 (0.00-0.056) ng/mL Total Protein 8.2 (6.4-8.2) g/dl Albumin 3.9 (3.4-5.0) g/dl Globulin 4.3 gm/dL Albumin/Globulin Ratio 0.9 L (1-2) Urine Color (Yellow) Urine Appearance (Clear) Urine pH (5.0-8.0) Ur Specific [place] (1.005-1.030) Urine Protein (Negative) Urine Glucose (UA) (Negative) Urine Ketones (Negative) Urine Occult Blood (Negative) Urine Nitrite (Negative) Urine Bilirubin (Negative) Urine Urobilinogen (0.2-1.0) Ur Leukocyte Esterase (Negative) Urine RBC (0-5) /hpf Urine WBC (0-5) /hpf Urine WBC Clumps (NOT SEEN) /hpf Ur Squamous Epith Cells (0-5) /hpf Urine Bacteria (FEW) /hpf Urine Mucus (FEW) /hpf Ketones 0.2 (0.0-0.3) mM 02/22/19 02/22/19 02/22/19 Range/Units 08:50 09:25 14:59 WBC (3.98-10.04) K/mm3 RBC (3.98-5.22) M/mm3 Hgb (11.2-15.7) gm/dl Hct (34.1-44.9) % MCV (79.4-94.8) fl MCH (25.6-32.2) pg MCHC (32.2-35.5) g/dl RDW Std Deviation (36.4-46.3) fL Plt Count (182-369) K/mm3 MPV (9.4-12.3) fl Neut % (Auto) (34.0-71.1) % Lymph % (Auto) (19.3-51.7) % [place] % (Auto) (4.7-12.5) % Eos % (Auto) (0.7-5.8) Baso % (Auto) (0.1-1.2) % Neut # (Auto) (1.56-6.13) K/mm3 Lymph # (Auto) (1.18-3.74) K/mm3 [place] # (Auto) (0.24-0.36) K/mm3 Eos # (Auto) (0.04-0.36) K/mm3 Baso # (Auto) (0.01-0.08) K/mm3 Manual Slide Review VBG pH 7.52 H (7.30-7.40) Sodium (136-145) mEq/L Potassium (3.5-5.1) mEq/L Chloride (98-107) mEq/L Carbon Dioxide (21-32) mEq/L Anion Gap (5-15) BUN (7-18) mg/dL Creatinine (0.55-1.02) mg/dL Est Cr Clr Drug Dosing mL/min Estimated GFR (MDRD) (>60) mL/min BUN/Creatinine Ratio (14-18) Glucose (74-106) mg/dL POC Glucose 264 H (70-105) mg/dL Serum Osmolality (280-300) mosm/kg Lactic Acid 2.5 H* (0.4-2.0) mmol/L Calcium (8.5-10.1) mg/dL Magnesium (1.8-2.4) mg/dl Total Bilirubin (0.2-1.0) mg/dL AST (15-37) U/L ALT (14-59) U/L Alkaline Phosphatase (46-116) U/L Troponin I (0.00-0.056) ng/mL Total Protein (6.4-8.2) g/dl Albumin (3.4-5.0) g/dl Globulin gm/dL Albumin/Globulin Ratio (1-2) Urine Color (Yellow) Urine Appearance (Clear) Urine pH (5.0-8.0) Ur Specific [place] (1.005-1.030) Urine Protein (Negative) Urine Glucose (UA) (Negative) Urine Ketones (Negative) Urine Occult Blood (Negative) Urine Nitrite (Negative) Urine Bilirubin (Negative) Urine Urobilinogen (0.2-1.0) Ur Leukocyte Esterase (Negative) Urine RBC (0-5) /hpf Urine WBC (0-5) /hpf Urine WBC Clumps (NOT SEEN) /hpf Ur Squamous Epith Cells (0-5) /hpf Urine Bacteria (FEW) /hpf Urine Mucus (FEW) /hpf Ketones (0.0-0.3) mM 02/22/19 Range/Units 15:05 WBC (3.98-10.04) K/mm3 RBC (3.98-5.22) M/mm3 Hgb (11.2-15.7) gm/dl Hct (34.1-44.9) % MCV (79.4-94.8) fl MCH (25.6-32.2) pg MCHC (32.2-35.5) g/dl RDW Std Deviation (36.4-46.3) fL Plt Count (182-369) K/mm3 MPV (9.4-12.3) fl Neut % (Auto) (34.0-71.1) % Lymph % (Auto) (19.3-51.7) % [place] % (Auto) (4.7-12.5) % Eos % (Auto) (0.7-5.8) Baso % (Auto) (0.1-1.2) % Neut # (Auto) (1.56-6.13) K/mm3 Lymph # (Auto) (1.18-3.74) K/mm3 [place] # (Auto) (0.24-0.36) K/mm3 Eos # (Auto) (0.04-0.36) K/mm3 Baso # (Auto) (0.01-0.08) K/mm3 Manual Slide Review VBG pH (7.30-7.40) Sodium (136-145) mEq/L Potassium (3.5-5.1) mEq/L Chloride (98-107) mEq/L Carbon Dioxide (21-32) mEq/L Anion Gap (5-15) BUN (7-18) mg/dL Creatinine (0.55-1.02) mg/dL Est Cr Clr Drug Dosing mL/min Estimated GFR (MDRD) (>60) mL/min BUN/Creatinine Ratio (14-18) Glucose (74-106) mg/dL POC Glucose (70-105) mg/dL Serum Osmolality (280-300) mosm/kg Lactic Acid (0.4-2.0) mmol/L Calcium (8.5-10.1) mg/dL Magnesium (1.8-2.4) mg/dl Total Bilirubin (0.2-1.0) mg/dL AST (15-37) U/L ALT (14-59) U/L Alkaline Phosphatase (46-116) U/L Troponin I (0.00-0.056) ng/mL Total Protein (6.4-8.2) g/dl Albumin (3.4-5.0) g/dl Globulin gm/dL Albumin/Globulin Ratio (1-2) Urine Color Yellow (Yellow) Urine Appearance Cloudy H (Clear) Urine pH 6.0 (5.0-8.0) Ur Specific [place] 1.020 (1.005-1.030) Urine Protein Negative (Negative) Urine Glucose (UA) 2+ H (Negative) Urine Ketones Negative (Negative) Urine Occult Blood Trace-lysed H (Negative) Urine Nitrite Negative (Negative) Urine Bilirubin Negative (Negative) Urine Urobilinogen 0.2 (0.2-1.0) Ur Leukocyte Esterase 2+ H (Negative) Urine RBC 0-5 (0-5) /hpf Urine WBC 50-75 H (0-5) /hpf Urine WBC Clumps Occasional (NOT SEEN) /hpf Ur Squamous Epith Cells 5-10 H (0-5) /hpf Urine Bacteria Many H (FEW) /hpf Urine Mucus Not seen (FEW) /hpf Ketones (0.0-0.3) mM Meds: Medications Generic Name Dose Route Start Last Admin Trade Name Frerichard PRN Reason Stop Dose Admin Sodium Chloride 1,000 mls @ 1,000 mls/hr 02/22/19 08:30 02/22/19 09:02 Normal Saline IV 1,000 mls/hr .BOLUS NEL Administration Lactated Ringer's 1,000 mls @ 150 mls/hr 02/22/19 12:45 02/22/19 13:17 Ringers, Lactated IV 150 mls/hr ASDIRECTED NEL Administration Sodium Chloride 100 mls @ 60 mls/hr 02/22/19 13:15 02/22/19 13:17 Normal Saline IV 60 mls/hr ASDIRECTED NEL Administration Sodium Chloride 10 ml 02/22/19 08:30 02/22/19 13:17 Saline Flush FLUSH 10 ml ASDIRECTED PRN Administration Keep Vein Open Discontinued Medications Generic Name Dose Route Start Last Admin Trade Name Babak PRN Reason Stop Dose Admin Diphenhydramine HCl 50 mg 02/22/19 08:32 02/22/19 08:57 Benadryl IVPUSH 02/22/19 08:33 50 mg ONETIME ONE Administration Hydromorphone HCl 0.5 mg 02/22/19 12:28 02/22/19 12:34 Dilaudid IVPUSH 02/22/19 12:29 0.5 mg ONETIME ONE Administration Sodium Chloride 1,000 mls @ 999 mls/hr 02/22/19 10:00 02/22/19 10:08 Normal Saline IV 02/22/19 11:00 999 mls/hr ONETIME ONE Administration Iopamidol 100 ml 02/22/19 13:13 02/22/19 13:17 Isovue-370 (76%) IVPUSH 02/22/19 13:14 100 ml ONETIME ONE Administration Ketorolac Tromethamine 30 mg 02/22/19 08:32 02/22/19 08:59 Toradol IVPUSH 02/22/19 08:33 30 mg ONETIME ONE Administration Metoclopramide HCl 10 mg 02/22/19 08:30 02/22/19 08:55 Reglan IVPUSH 02/22/19 08:31 10 mg ONETIME ONE Administration Sodium Chloride 10 ml 02/22/19 13:13 Saline Flush FLUSH 02/22/19 13:14 ONETIME ONE - Re-Assessments/Exams Free Text/Narrative Re-Assessment/Exam: 02/22/19 08:56 I ordered an IV NS 1L bolus, labs, reglan 10mg IV, toradol 30mg IV, benadryl 50mg IV and CT of her head. 02/22/19 15:01 Her WBC was elevated at 12.7. Her pH was elevated at 7.52. Her Na was low at 131. Her creatinine was elevated at 1.5. Her glucose was elevated at 394. Her lactic acid is elevated at 2.5. Her alk phos is elevated at 132. Her troponin is negative. Her ketones were normal at 0.2. Her CT shows slight paranasal sinus findings believed to be chronic. No acute intracranial abnormality is identified. She still had a headache so I ordered dilaudid and a CT angio of her head. The CT angio showed no abnormality is appreciated on CT angiogram study of the brain. Her headache is better. She feels a little "woozy" and the double vision has improved only slightly. 02/22/19 15:53 I called [facility] in [place] and talked with Dr Monsalve and he felt this could be lateral rectus palsy versus a brain stem stroke. He felt brain stem stroke less likely due to her presentation. He did feel she needed an MRI to help rule that out. I also talked with the ER doctor and he accepted the patient. Departure - Departure Time of Disposition: 16:10 Disposition: DC/Tfer to Acute Hospital 02 Condition: Fair Clinical Impression: Double vision, Hyperglycemia due to type 1 diabetes mellitus Headache Qualifiers: Headache type: unspecified Headache chronicity pattern: acute headache Intractability: not intractable Qualified Code(s): R51 - Headache - Discharge Information Referrals: Maisha Hanley PA-C [Primary Care Provider] - Forms: ED Department Discharge Sepsis Event Note - Evaluation Sepsis Screening Result: No Definite Risk - Focused Exam Vital Signs: Vital Signs Temp Pulse Resp BP Pulse Ox 02/22/19 08:10 97.7 F 96 12 109/70 99 Date Exam was Performed: 02/22/19 Time Exam was Performed: 15:53 - My Orders Last 24 Hours: My Active Orders 02/22/19 08:30 Cardiac Monitoring [RC] . DIRECTED Sodium Chloride 0.9% [Normal Saline] 1,000 ml IV .BOLUS Sodium Chloride 0.9% [Saline Flush] 10 ml FLUSH ASDIRECTED PRN Peripheral IV Insertion Adult [OM.PC] Stat 02/22/19 08:31 EKG Documentation Completion [RC] STAT ED Antiemetic Medication Reflex [OM.PC] Stat 02/22/19 08:32 Peripheral IV Care [RC] . DIRECTED 02/22/19 12:45 Lactated Ringers [Ringers, Lactated] 1,000 ml IV ASDIRECTED 02/22/19 13:15 Sodium Chloride 0.9% [Normal Saline] 100 ml IV ASDIRECTED 02/22/19 14:40 Accu Check [Blood Glucose Check, Bedside] [RC] ONETIME - Assessment/Plan Last 24 Hours: My Active Orders 02/22/19 08:30 Cardiac Monitoring [RC] . DIRECTED Sodium Chloride 0.9% [Normal Saline] 1,000 ml IV .BOLUS Sodium Chloride 0.9% [Saline Flush] 10 ml FLUSH ASDIRECTED PRN Peripheral IV Insertion Adult [OM.PC] Stat 02/22/19 08:31 EKG Documentation Completion [RC] STAT ED Antiemetic Medication Reflex [OM.PC] Stat 02/22/19 08:32 Peripheral IV Care [RC] . DIRECTED 02/22/19 12:45 Lactated Ringers [Ringers, Lactated] 1,000 ml IV ASDIRECTED 02/22/19 13:15 Sodium Chloride 0.9% [Normal Saline] 100 ml IV ASDIRECTED 02/22/19 14:40 Accu Check [Blood Glucose Check, Bedside] [RC] ONETIME
--- NOTE | 2019-02-22 09:59 | CT ---
Head CT Technique: Multiple axial sections through the brain were obtained. Intravenous contrast was not utilized. Comparison: No prior head CT exam. Findings: Ventricles along with basal cisterns and sulci over the convexities are within normal limits for the patient's age. No abnormal parenchymal densities are seen. No evidence of intracranial hemorrhage. No midline shift or mass effect is seen. Bone window settings were reviewed. No acute calvarial abnormality is appreciated. Mastoid sinuses show nothing acute. Mild mucosal thickening is noted within the ethmoid and left maxillary sinus which is most likely chronic. No air-fluid levels are seen within the visualized sinuses. Impression: 1. Slight paranasal sinus findings believed to be chronic. 2. No acute intracranial abnormality is identified. Diagnostic code #2 This report was dictated in [place] Standard Time
[2019-02-22] MEDS ORDERED: Sodium Chloride 0.9% 1,000 ML IV ONE (10:00)
[2019-02-22] MEDS ORDERED: HYDROmorphone 0.5 MG/0.5 ML Syringe IVPUSH ONE ×2 (12:28→17:02)
[2019-02-22] MEDS ORDERED: Lactated Ringers 1,000 ML IV SCH (12:45)
[2019-02-22] MEDS ORDERED: Iopamidol 755 Mg/ML 100 ML Bottle IVPUSH ONE (13:13)
[2019-02-22] MEDS ORDERED: Sodium Chloride 0.9% 10 ML Syringe FLUSH ONE (13:13)
[2019-02-22] MEDS ORDERED: Sodium Chloride 0.9% 100 ML IV SCH (13:15)
--- NOTE | 2019-02-22 14:20 | CT ---
CT angiogram of brain Technique: Multiple axial sections through the brain were obtained. Intravenous contrast was utilized in the arterial phase. Multiple MIP images were obtained. Findings: Distal vertebral arteries are patent into the basilar artery. Basilar artery is patent into both posterior cerebral arteries. Distal internal carotid arteries are patent. Middle cerebral arteries and anterior cerebral arteries are patent. No focal stenosis is seen. No discrete occlusion is identified. No discrete aneurysm is appreciated. Impression: 1. No abnormality is appreciated on CT angiogram study of the brain. Diagnostic code #1 This report was dictated in [place] Standard Time
[2019-02-22 18:04] VITALS: BP 118/77; PULSE 100
== END 2019-02-22 18:05 ==
LOC: JD.ED 08:05
DX: E10.65 Type 1 diabetes mellitus with hyperglycemia (principal); R51 Headache; H53.2 Diplopia
CPT/HCPCS: 36415; 70450; 70496; 80053; 81001; 82009; 82800; 82962; 83605; 83735; 83930; 84484; 85025; 93005; 96361; 96374; 96375; 96376; 99285; J1170; J1200; J1885; J2765; J7030; J7050; J7120; Q9967; 93010

== ENCOUNTER 2019-04-03 09:23 | Emergency (ER) | payer OTHER ==
--- NOTE | 2019-04-03 09:44 | EDM.PDOC ---
ED HPI GENERAL MEDICAL PROBLEM - General Chief Complaint: Respiratory Problem Stated Complaint: RIB PAIN FROM COUGH AND PNEUMONIA NOT BETTER Time Seen by Provider: 04/03/19 09:44 - History of Present Illness INITIAL COMMENTS - FREE TEXT/NARRATIVE: 39-year-old female presents the emergency room with rib pain. This pain started several weeks ago. And is progressively been getting worse she went to the chiropractor initially and had a rib pop back into place but then it kept getting sore. The chiropractor advised that she follow-up with her regular provider and she did that. She was given some pain medication that really did not help after a couple of days and then she got a chest x-ray that showed pneumonia she was started on Levaquin. And put on oxycodone extended release 10 mg twice a day and this is not seeming to help with her pain at all. She is tried ibuprofen and Tylenol as well without any success. The patient has not noticed any improvement with the Levaquin. She has significant discomfort with just regular breathing. I did review her x-ray from the of this month which shows possible pleural effusion as well as parenchymal did not I did review her chest x-ray which shows a possible pleural effusion as well as parenchymal density at the base of her left lung, a few old rib fractures were identified no acute rib fracture seen. Left Chest Pain Score (Numeric/FACES): 10 - Related Data Allergies Allergy/AdvReac Type Severity Reaction Status Date / Time No Known Allergies Allergy Verified 04/03/19 09:39 Home Meds: Home Meds Insulin Pump/Infus. Set/Meter [Accu-Chek Combo System] 1 each ASDIRECTED 03/28 [History] Lisinopril 2.5 mg PO BEDTIME 10/27/16 [History] Ondansetron [Zofran ODT] 4 mg PO Q6H PRN #12 tab.dis 05/31/17 [Rx] Multivitamin [Flintstones] 1 piece PO DAILY 07/19/17 [History] Brexpiprazole [Rexulti] 1 mg PO DAILY 01/02/18 [History] Levothyroxine 100 mcg PO ACBREAKFAST 01/02/18 [History] buPROPion [Wellbutrin] 100 mg PO ACLUNCH 01/02/18 [History] buPROPion [Wellbutrin] 200 mg PO ACBREAKFAST 01/02/18 [History] Acetaminophen/HYDROcodone [[employer] 325-5 MG] 1 - 2 tab PO Q6H PRN #20 tablet 04/03 [Rx] Pregabalin [Lyrica] 04/03/19 [History] atorvaSTATin [Lipitor] 10 mg PO DAILY 04/03/19 [History] levoFLOXacin [Levaquin] 500 mg PO DAILY #4 tab 04/03/19 [Rx] Past Medical History HEENT History: Reports: Impaired Vision Other HEENT History: wears glasses Cardiovascular History: Reports: Other (See Below) Other Cardiovascular History: states does not have HTN, is on Lisinopril "to protect my kidneys." Respiratory History: Reports: Asthma, Bronchitis, Recurrent, Pneumonia, Recurrent Gastrointestinal History: Reports: Other (See Below) Other Gastrointestinal History: 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 - Infectious Disease History Infectious Disease History: Reports: Chicken Pox - Past Surgical History HEENT Surgical History: Reports: Oral Surgery, Tonsillectomy GI Surgical History: Reports: Bariatric Procedure, Cholecystectomy Female Surgical History: Reports: Section Dermatological Surgical History: Reports: None Social & Family History - Family History Family Medical History: Noncontributory Cardiac: Reports: AR Musculoskeletal: Reports: RA - Caffeine Use Caffeine Use: Reports: Coffee, Soda, Tea - Living Situation & Occupation Living situation: Reports: , with Spouse, with Family (2 kids) 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, [employer]) ED [facility] GENERAL - Review of Systems Review Of Systems: See Below Constitutional: Denies: Fever, Chills HEENT: Reports: No Symptoms Respiratory: Reports: Pleuritic Chest Pain, Cough, Sputum (Grayish-green) Cardiovascular: Reports: No Symptoms Endocrine: Reports: No Symptoms GI/Abdominal: Reports: No Symptoms : Reports: No Symptoms ED EXAM, GENERAL - Physical Exam Exam: See Below Exam Limited By: No Limitations General Appearance: Alert, Mild Distress (From the pain) Ears: Normal External Exam, Normal Canal, Hearing Grossly Normal, Normal TMs Nose: Normal Inspection, Normal Mucosa, No Blood Throat/Mouth: Normal Inspection, Normal Lips, Normal Teeth, Normal Gums, Normal Oropharynx, Normal Voice, No Airway Compromise Head: Atraumatic, Normocephalic Neck: Normal Inspection, Supple, Non-Tender, Full Range of Motion. No: Lymphadenopathy (L), Lymphadenopathy (R) Respiratory/Chest: No Respiratory Distress, Lungs Clear, Other (Has decreased breath sounds in the left base). No: Normal Breath Sounds Cardiovascular: Regular Rate, Rhythm, No Edema, No Murmur GI/Abdominal: Normal Bowel Sounds, Soft, Other (Some mild disc comfort in the left upper most upper quadrant this seems to correlate with her chest wall discomfort) Course - Vital Signs Last Recorded V/S: Last Vital Signs Temp 36.9 C 04/03/19 09:41 Pulse 102 H 04/03/19 09:41 Resp 18 04/03/19 09:41 BP 153/89 H 04/03/19 09:41 Pulse Ox 98 04/03/19 09:41 - Orders/Labs/Meds Orders: Active Orders 24 hr Category Date Time Status Ang Chest [CT] Stat Exams 04/03/19 12:02 Taken Chest 2V [CR] Stat Exams 04/03/19 10:19 Taken Sodium Chloride 0.9% [Normal Saline] 1,000 ml Med 04/03/19 11:30 Active IV ASDIRECTED Sodium Chloride 0.9% [Normal Saline] 100 ml Med 04/03/19 12:30 Active IV ASDIRECTED Sodium Chloride 0.9% [Saline Flush] Med 04/03/19 12:17 Active 10 ml FLUSH ONETIME PRN Medication Orders Sodium Chloride (Normal Saline) 1,000 mls @ 150 mls/hr IV ASDIRECTED NEL Sodium Chloride (Normal Saline) 100 mls @ 60 mls/hr IV ASDIRECTED NEL Last Admin: 04/03/19 12:21 Dose: 60 mls/hr Sodium Chloride (Saline Flush) 10 ml FLUSH ONETIME PRN PRN Reason: Keep Vein Open Last Admin: 02/23/20 12:21 Dose: 10 ml Labs: Laboratory Tests 04/03/19 04/03/19 04/03/19 Range/Units 10:27 10:27 10:27 WBC 12.94 H (3.98-10.04) K/mm3 RBC 3.14 L (3.98-5.22) M/mm3 Hgb 9.1 L D (11.2-15.7) gm/dl Hct 29.5 L (34.1-44.9) % MCV 93.9 (79.4-94.8) fl MCH 29.0 (25.6-32.2) pg MCHC 30.8 L (32.2-35.5) g/dl RDW Std Deviation 46.9 H (36.4-46.3) fL Plt Count 782 H D (182-369) K/mm3 MPV 9.3 L (9.4-12.3) fl Neut % (Auto) 87.9 H (34.0-71.1) % Lymph % (Auto) 5.1 L (19.3-51.7) % Burke % (Auto) 5.1 (4.7-12.5) % Eos % (Auto) 1.4 (0.7-5.8) Baso % (Auto) 0.3 (0.1-1.2) % Neut # (Auto) 11.37 H (1.56-6.13) K/mm3 Lymph # (Auto) 0.66 L (1.18-3.74) K/mm3 Burke # (Auto) 0.66 H (0.24-0.36) K/mm3 Eos # (Auto) 0.18 (0.04-0.36) K/mm3 Baso # (Auto) 0.04 (0.01-0.08) K/mm3 Manual Slide Review Abnormal smear PT 10.6 (9.7-12.0) SECONDS INR 0.97 APTT 31 (22-31) SECONDS D-Dimer, Quantitative 5.16 H (0.19-0.50) mg/L Sodium (136-145) mEq/L Potassium (3.5-5.1) mEq/L Chloride (98-107) mEq/L Carbon Dioxide (21-32) mEq/L Anion Gap (5-15) BUN (7-18) mg/dL Creatinine (0.55-1.02) mg/dL Est Cr Clr Drug Dosing Estimated GFR (MDRD) (>60) mL/min BUN/Creatinine Ratio (14-18) Glucose (74-106) mg/dL Calcium (8.5-10.1) mg/dL Total Bilirubin (0.2-1.0) mg/dL AST (15-37) U/L ALT (14-59) U/L Alkaline Phosphatase (46-116) U/L Total Protein (6.4-8.2) g/dl Albumin (3.4-5.0) g/dl Globulin gm/dL Albumin/Globulin Ratio (1-2) HCG, Qual (NEGATIVE) 04/03/19 04/03/19 Range/Units 10:27 10:27 WBC (3.98-10.04) K/mm3 RBC (3.98-5.22) M/mm3 Hgb (11.2-15.7) gm/dl Hct (34.1-44.9) % MCV (79.4-94.8) fl MCH (25.6-32.2) pg MCHC (32.2-35.5) g/dl RDW Std Deviation (36.4-46.3) fL Plt Count (182-369) K/mm3 MPV (9.4-12.3) fl Neut % (Auto) (34.0-71.1) % Lymph % (Auto) (19.3-51.7) % Burke % (Auto) (4.7-12.5) % Eos % (Auto) (0.7-5.8) Baso % (Auto) (0.1-1.2) % Neut # (Auto) (1.56-6.13) K/mm3 Lymph # (Auto) (1.18-3.74) K/mm3 Burke # (Auto) (0.24-0.36) K/mm3 Eos # (Auto) (0.04-0.36) K/mm3 Baso # (Auto) (0.01-0.08) K/mm3 Manual Slide Review PT (9.7-12.0) SECONDS INR APTT (22-31) SECONDS D-Dimer, Quantitative (0.19-0.50) mg/L Sodium 133 L (136-145) mEq/L Potassium 5.0 (3.5-5.1) mEq/L Chloride 97 L (98-107) mEq/L Carbon Dioxide 28 (21-32) mEq/L Anion Gap 13.0 (5-15) BUN 8 (7-18) mg/dL Creatinine 0.9 (0.55-1.02) mg/dL Est Cr Clr Drug Dosing TNP Estimated GFR (MDRD) > 60 (>60) mL/min BUN/Creatinine Ratio 8.9 L (14-18) Glucose 402 H (74-106) mg/dL Calcium 8.4 L (8.5-10.1) mg/dL Total Bilirubin 0.2 (0.2-1.0) mg/dL AST 12 L (15-37) U/L ALT 40 (14-59) U/L Alkaline Phosphatase 99 (46-116) U/L Total Protein 7.3 (6.4-8.2) g/dl Albumin 2.0 L (3.4-5.0) g/dl Globulin 5.3 gm/dL Albumin/Globulin Ratio 0.4 L (1-2) HCG, Qual Negative (NEGATIVE) Meds: Medications Generic Name Dose Route Start Last Admin Trade Name Freq PRN Reason Stop Dose Admin Sodium Chloride 1,000 mls @ 150 mls/hr 04/03/19 11:30 Normal Saline IV ASDIRECTED NEL Sodium Chloride 100 mls @ 60 mls/hr 04/03/19 12:30 04/03/19 12:21 Normal Saline IV 60 mls/hr ASDIRECTED NEL Administration Sodium Chloride 10 ml 04/03/19 12:17 04/03/19 12:21 Saline Flush FLUSH 10 ml ONETIME PRN Administration Keep Vein Open Discontinued Medications Generic Name Dose Route Start Last Admin Trade Name Freq PRN Reason Stop Dose Admin Hydromorphone HCl 0.5 mg 04/03/19 10:28 04/03/19 10:36 Dilaudid IVPUSH 04/03/19 10:29 0.5 mg ONETIME ONE Administration Hydromorphone HCl 0.5 mg 04/03/19 12:05 04/03/19 12:10 Dilaudid IVPUSH 04/03/19 12:06 0.5 mg ONETIME ONE Administration Sodium Chloride 500 mls @ 999 mls/hr 04/03/19 11:15 04/03/19 11:38 Normal Saline IV 04/03/19 11:45 999 mls/hr .BOLUS ONE Administration Iopamidol 100 ml 04/03/19 12:17 04/03/19 12:21 Isovue-370 (76%) IVPUSH 04/03/19 12:18 100 ml ONETIME ONE Administration - Re-Assessments/Exams Free Text/Narrative Re-Assessment/Exam: 04/03/19 11:19 Labs started to come in her blood sugars 400. Apparently her insulin pump is been nonfunctional for the last couple hours as the superintendent device came off she just starting this again I have advised her blood sugars and she will give herself a bolus at this time. 04/03/19 12:11 Patient's d-dimer is very elevated greater than 5 we will check a CTA 04/03/19 14:09 CTA does not show pulmonary embolism she has a soft tissue density in the lingula and left lower lobe that represents a pneumonia versus a mass there is a loculated 5 cm fluid collection in the left lower lobe which may represent an abscess or not necrotic tumor and she has pathologic nodes in the mediastinum she also has a few nodular densities in the left upper lobe and scattered nodules bilaterally that may be infectious or metastatic the patient completed her Levaquin yesterday I will continue this for another 5 days. I did discuss the patient's case with Dr. Khan interventional radiologist at [facility] in [place]. His office will call the patient to arrange biopsy in the next couple of days. Departure - Departure Time of Disposition: 14:20 Disposition: Home, Self-Care 01 Clinical Impression: Lesion of left lung Pneumonia Qualifiers: Pneumonia type: due to unspecified organism Laterality: right Lung location: upper lobe of lung Qualified Code(s): J18.1 - Lobar pneumonia, unspecified organism - Discharge Information Prescriptions: Acetaminophen/HYDROcodone [[employer] 325-5 MG] 1 - 2 tab PO Q6H PRN #20 tablet PRN Reason: Pain levoFLOXacin [Levaquin] 500 mg PO DAILY #4 tab Referrals: Maisha Hanley PA-C [Primary Care Provider] - Forms: ED Department Discharge Additional Instructions: Return to the emergency room with any questions problems or worsening symptoms. Tomorrow you should be contacted by [facility] [place] to arrange biopsy or draining this lesion in your lung. Continue taking the antibiotics. Use the pain medication as needed. Sepsis Event Note - Focused Exam Vital Signs: Vital Signs Temp Pulse Resp BP Pulse Ox 04/03/19 09:41 36.9 C 102 H 18 153/89 H 98 Date Exam was Performed: 04/03/19 Time Exam was Performed: 14:09 - My Orders Last 24 Hours: My Active Orders 04/03/19 10:19 Chest 2V [CR] Stat 04/03/19 11:30 Sodium Chloride 0.9% [Normal Saline] 1,000 ml IV ASDIRECTED 04/03/19 12:02 Ang Chest [CT] Stat 04/03/19 12:17 Sodium Chloride 0.9% [Saline Flush] 10 ml FLUSH ONETIME PRN 04/03/19 12:30 Sodium Chloride 0.9% [Normal Saline] 100 ml IV ASDIRECTED - Assessment/Plan Last 24 Hours: My Active Orders 04/03/19 10:19 Chest 2V [CR] Stat 04/03/19 11:30 Sodium Chloride 0.9% [Normal Saline] 1,000 ml IV ASDIRECTED 04/03/19 12:02 Ang Chest [CT] Stat 04/03/19 12:17 Sodium Chloride 0.9% [Saline Flush] 10 ml FLUSH ONETIME PRN 04/03/19 12:30 Sodium Chloride 0.9% [Normal Saline] 100 ml IV ASDIRECTED
[2019-04-03 09:46] VITALS: BP 153/89; PULSE 102
[2019-04-03] MEDS ORDERED: HYDROmorphone 0.5 MG/0.5 ML Syringe IVPUSH ONE ×2 (10:28→12:05)
[2019-04-03] MEDS ORDERED: Sodium Chloride 0.9% 500 ML IV ONE (11:15)
[2019-04-03] MEDS ORDERED: Sodium Chloride 0.9% 1,000 ML IV SCH (11:30)
[2019-04-03] MEDS ORDERED: Sodium Chloride 0.9% 10 ML Syringe FLUSH PRN (12:17)
[2019-04-03] MEDS ORDERED: Iopamidol 755 Mg/ML 100 ML Bottle IVPUSH ONE (12:17)
[2019-04-03] MEDS ORDERED: Sodium Chloride 0.9% 100 ML IV SCH (12:30)
[2019-04-03] MEDS ORDERED: Acetaminophen/HYDROcodone 325-5 MG Tab PO ONE (14:14)
[2019-04-03] MEDS ORDERED: Levofloxacin 500 MG Tab PO ONE (14:14)
--- NOTE | 2019-04-03 18:21 | CR ---
Chest: 2 views of the chest were obtained. Comparison: Previous chest x-ray of 03/28/19. Increasing parenchymal density within the left lung base from prior chest x-ray. Blunting of the costophrenic angle is seen. Right lung shows minimal parenchymal density. Upper lungs are clear. Heart size is within normal limits. Bony structures appear unremarkable with no acute osseous finding. Impression: 1. Worsening appearance of the chest from previous study of 03/28/19. 2. Nothing acute is otherwise appreciated. Diagnostic code #3 This report was dictated in [place] Standard Time
--- NOTE | 2019-04-03 18:21 | CT ---
CT chest Technique: Multiple axial sections were obtained from above the lung apices inferiorly through the lung bases. Intravenous contrast was utilized. Study was performed as a pulmonary angiogram protocol. Findings: Pulmonary arteries are moderately well opacified. No filling defects are seen within the main or segmental or proximal subsegmental branches to indicate pulmonary embolism. Aorta shows no aneurysm or dissection. Fluid-filled collection is seen adjacent to the chest wall. Fluid-filled collection measures about 4.7 cm in size. Findings most likely represent a pulmonary abscess although differential also includes necrotic tumor which is felt to be less likely. Loculated pleural effusion is seen within the left base along the medial lower lung. Areas of parenchymal density noted within the right upper lung as well as within the left lower lung. Bone window settings show nothing acute. Mild adenopathy seen within the chest. Slightly prominent adenopathy within left hilar region is seen. Impression: 1. Fluid-filled collection adjacent to the left lower chest wall most likely representing lung abscess and possible necrotic tumor but this is felt to be less likely. 2. Slight adenopathy most likely reactive from the left lower lung process. 3. Slight parenchymal density within the left base most likely representing pneumonia. Slight density with a right upper lung also likely representing pneumonia. Follow-up chest imaging will be needed to make sure findings resolved after clinical therapy. Diagnostic code #5 This report was dictated in [place] Standard Time I agree with preliminary report from [facility], finalized on 04/03/19, 2:11 PM Central Time
== END 2019-04-03 14:45 | disposition home or self-care (01) ==
LOC: JD.ED 09:23
DX: J18.9 Pneumonia, unspecified organism (principal); R91.1 Solitary pulmonary nodule; E10.9 Type 1 diabetes mellitus without complications; E03.9 Hypothyroidism, unspecified; E66.9 Obesity, unspecified; M06.9 Rheumatoid arthritis, unspecified; F32.9 Major depressive disorder, single episode, unspecified; J45.909 Unspecified asthma, uncomplicated; Z98.890 Other specified postprocedural states; Z79.899 Other long term (current) drug therapy; Z98.84 Bariatric surgery status; Z90.49 Acquired absence of other specified parts of digestive tract
CPT/HCPCS: 36415; 71046; 71275; 80053; 84703; 85025; 85379; 85610; 85730; 96361; 96374; 96376; 99284; A9270; J1170; J7030; J7050; Q9967

== ENCOUNTER 2019-04-26 14:31 | Emergency (ER) | payer OTHER | END 2019-04-26 15:03 | LOC: JD.ED 14:31 | DX: Z53.21 Procedure and treatment not carried out due to patient leaving prior to being seen by health care provider (principal) | CPT/HCPCS: 99281 ==

== ENCOUNTER 2019-05-21 07:40 | Emergency (ER) | payer OTHER ==
[2019-05-21] MEDS ORDERED: Sodium Chloride 0.9% 10 ML Syringe FLUSH PRN ×2 (08:27→08:58)
[2019-05-21] MEDS ORDERED: HYDROmorphone 1 MG/ML Syringe IVPUSH ONE (08:28)
[2019-05-21] MEDS ORDERED: Iopamidol 755 Mg/ML 100 ML Bottle IVPUSH ONE (08:58)
[2019-05-21] MEDS ORDERED: Sodium Chloride 0.9% 100 ML IV SCH (09:00)
--- NOTE | 2019-05-21 09:09 | EDM.PDOC ---
ED HPI GENERAL MEDICAL PROBLEM - General Chief Complaint: Respiratory Problem Stated Complaint: SOB Time Seen by Provider: 05/21/19 07:53 Source of Information: Reports: Patient History Limitations: Reports: No Limitations - History of Present Illness INITIAL COMMENTS - FREE TEXT/NARRATIVE: The patient presents with left chest pain, shortness of breath and right arm pain. This has been an ongoing issue for a few months. Back in March she was seen her in the ER and found to have a mass in her left lung. She went to [place] and was admitted there and a bronchoscopy was done along with a biopsy. It was found that the mass was an abscess. She has a PICC line and she gets rocephin nightly. She had more pain to the left chest over the past few days and chills. She denies fever. She also has some more shortness of breath and pain to her right arm. She has some swelling proximal to the PICC line insertion site. She has no abdominal pain, nausea or vomiting. Onset: Gradual Duration: Day(s): Location: Reports: Chest, Upper Extremity, Right Quality: Reports: Sharp Severity: Moderate Improves with: Reports: None Worsens with: Reports: None Associated Symptoms: Reports: Chest Pain, Fever/Chills, Shortness of Breath. Denies: Cough, Headaches, Nausea/Vomiting Right Arm Pain Score (Numeric/FACES): 4 - Related Data Allergies Allergy/AdvReac Type Severity Reaction Status Date / Time No Known Allergies Allergy Verified 05/21/19 08:02 Home Meds: Home Meds Insulin Pump/Infus. Set/Meter [Accu-Chek Combo System] 1 each ASDIRECTED 03/28 [History] Lisinopril 2.5 mg PO BEDTIME 10/27/16 [History] Ondansetron [Zofran ODT] 4 mg PO Q6H PRN #12 tab.dis 05/31/17 [Rx] Multivitamin [Flintstones] 1 piece PO DAILY 07/19/17 [History] Brexpiprazole [Rexulti] 1 mg PO DAILY 01/02/18 [History] Levothyroxine 100 mcg PO ACBREAKFAST 01/02/18 [History] buPROPion [Wellbutrin] 100 mg PO ACLUNCH 01/02/18 [History] buPROPion [Wellbutrin] 200 mg PO ACBREAKFAST 01/02/18 [History] Pregabalin [Lyrica] 50 mg PO DAILY 04/03/19 [History] Rivaroxaban [Xarelto] 15 mg PO BID #42 tab 05/21/19 [Rx] Rivaroxaban [Xarelto] 20 mg PO DAILY #30 tablet 05/21/19 [Rx] oxyCODONE HCl/Acetaminophen [Percocet 5-325 mg Tablet] 1 - 2 each PO Q6HR PRN # 20 tablet 05/21/19 [Rx] Past Medical History HEENT History: Reports: Impaired Vision Other HEENT History: wears glasses Cardiovascular History: Reports: Other (See Below) Other Cardiovascular History: states does not have HTN, is on Lisinopril "to protect my kidneys." Respiratory History: Reports: Asthma, Bronchitis, Recurrent, Pneumonia, Recurrent Gastrointestinal History: Reports: Other (See Below) Other Gastrointestinal History: 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 - Infectious Disease History Infectious Disease History: Reports: Chicken Pox - Past Surgical History HEENT Surgical History: Reports: Oral Surgery, Tonsillectomy GI Surgical History: Reports: Bariatric Procedure, Cholecystectomy Female Surgical History: Reports: Section Dermatological Surgical History: Reports: None Social & Family History - Family History Family Medical History: Noncontributory Cardiac: Reports: RI Musculoskeletal: Reports: RA - Tobacco Use Smoking Status *Q: Never Smoker - Caffeine Use Caffeine Use: Reports: Coffee, Soda, Tea - Living Situation & Occupation Living situation: Reports: , with Spouse, with Family (2 kids) 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 Denies: Fever HEENT: Reports: No Symptoms Respiratory: Reports: Shortness of Breath. Denies: Cough Cardiovascular: Reports: Chest Pain Endocrine: Reports: No Symptoms GI/Abdominal: Reports: No Symptoms : Reports: No Symptoms Musculoskeletal: Reports: Other (Right arm pain) ED EXAM, GENERAL - Physical Exam Exam: See Below Exam Limited By: No Limitations General Appearance: Alert, No Apparent Distress Ears: Normal External Exam Nose: Normal Inspection Head: Atraumatic, Normocephalic Neck: Normal Inspection Respiratory/Chest: No Respiratory Distress, Lungs Clear, Normal Breath Sounds Cardiovascular: Regular Rate, Rhythm, No Edema, No Murmur GI/Abdominal: Soft, Non-Tender, No Organomegaly, No Mass Back Exam: Normal Inspection Extremities: Other (Mild pain upon palpation and edema to the right upper arm proximal to the PICC site) Course - Vital Signs Last Recorded V/S: Last Vital Signs Temp 97.3 F 05/21/19 07:58 Pulse 129 H 05/21/19 07:58 Resp 20 05/21/19 07:58 BP 148/115 H 05/21/19 07:58 Pulse Ox 99 05/21/19 07:58 - Orders/Labs/Meds Orders: Active Orders 24 hr Category Date Time Status Cardiac Monitoring [RC] . DIRECTED Care 05/21/19 08:24 Active Peripheral IV Care [RC] . DIRECTED Care 05/21/19 08:27 Active Ang Chest [CT] Stat Exams 05/21/19 08:26 Taken VL Duplex Upr Ext Veins Ltd Rt [US] Stat Exams 05/21/19 08:27 Taken CULTURE BLOOD [BC] Stat Lab 05/21/19 08:35 Received CULTURE BLOOD [BC] Stat Lab 05/21/19 08:40 Received Sodium Chloride 0.9% [Normal Saline] 100 ml Med 05/21/19 09:00 Active IV ASDIRECTED Sodium Chloride 0.9% [Saline Flush] Med 05/21/19 08:27 Active 10 ml FLUSH ASDIRECTED PRN Sodium Chloride 0.9% [Saline Flush] Med 05/21/19 08:58 Active 10 ml FLUSH ONETIME PRN Blood Culture x2 Reflex Set [OM.PC] Stat Oth 05/21/19 08:26 Ordered Peripheral IV Insertion Adult [OM.PC] Routine Oth 05/21/19 08:27 Ordered Medication Orders Sodium Chloride (Normal Saline) 100 mls @ 60 mls/hr IV ASDIRECTED NEL Last Admin: 05/21/19 09:11 Dose: 60 mls/hr Sodium Chloride (Saline Flush) 10 ml FLUSH ASDIRECTED PRN PRN Reason: Keep Vein Open Last Admin: 05/21/19 08:41 Dose: 10 ml Sodium Chloride (Saline Flush) 10 ml FLUSH ONETIME PRN PRN Reason: Keep Vein Open Last Admin: 05/21/19 09:11 Dose: 10 ml Labs: Laboratory Tests 05/21/19 05/21/19 05/21/19 Range/Units 08:35 08:35 08:35 WBC 5.94 (3.98-10.04) K/mm3 RBC 4.03 (3.98-5.22) M/mm3 Hgb 11.7 (11.2-15.7) gm/dl Hct 37.0 (34.1-44.9) % MCV 91.8 (79.4-94.8) fl MCH 29.0 (25.6-32.2) pg MCHC 31.6 L (32.2-35.5) g/dl RDW Std Deviation 51.9 H (36.4-46.3) fL Plt Count 317 (182-369) K/mm3 MPV 12.2 (9.4-12.3) fl Neut % (Auto) 59.9 (34.0-71.1) % Lymph % (Auto) 24.2 (19.3-51.7) % Gosper % (Auto) 9.4 (4.7-12.5) % Eos % (Auto) 5.7 (0.7-5.8) Baso % (Auto) 0.8 (0.1-1.2) % Neut # (Auto) 3.55 (1.56-6.13) K/mm3 Lymph # (Auto) 1.44 (1.18-3.74) K/mm3 Gosper # (Auto) 0.56 H (0.24-0.36) K/mm3 Eos # (Auto) 0.34 (0.04-0.36) K/mm3 Baso # (Auto) 0.05 (0.01-0.08) K/mm3 D-Dimer, Quantitative 0.65 H (0.19-0.50) mg/L Sodium 136 (136-145) mEq/L Potassium 4.0 (3.5-5.1) mEq/L Chloride 102 (98-107) mEq/L Carbon Dioxide 26 (21-32) mEq/L Anion Gap 12.0 (5-15) BUN 9 (7-18) mg/dL Creatinine 0.9 (0.55-1.02) mg/dL Est Cr Clr Drug Dosing 84.66 mL/min Estimated GFR (MDRD) > 60 (>60) mL/min BUN/Creatinine Ratio 10.0 L (14-18) Glucose 228 H (74-106) mg/dL Lactic Acid (0.4-2.0) mmol/L Calcium 9.1 (8.5-10.1) mg/dL Total Bilirubin 0.3 (0.2-1.0) mg/dL AST 17 (15-37) U/L ALT 23 (14-59) U/L Alkaline Phosphatase 91 (46-116) U/L C-Reactive Protein 0.9 (<1.0) mg/dL Total Protein 7.7 (6.4-8.2) g/dl Albumin 3.4 (3.4-5.0) g/dl Globulin 4.3 gm/dL Albumin/Globulin Ratio 0.8 L (1-2) 05/21/19 Range/Units 08:40 WBC (3.98-10.04) K/mm3 RBC (3.98-5.22) M/mm3 Hgb (11.2-15.7) gm/dl Hct (34.1-44.9) % MCV (79.4-94.8) fl MCH (25.6-32.2) pg MCHC (32.2-35.5) g/dl RDW Std Deviation (36.4-46.3) fL Plt Count (182-369) K/mm3 MPV (9.4-12.3) fl Neut % (Auto) (34.0-71.1) % Lymph % (Auto) (19.3-51.7) % Gosper % (Auto) (4.7-12.5) % Eos % (Auto) (0.7-5.8) Baso % (Auto) (0.1-1.2) % Neut # (Auto) (1.56-6.13) K/mm3 Lymph # (Auto) (1.18-3.74) K/mm3 Gosper # (Auto) (0.24-0.36) K/mm3 Eos # (Auto) (0.04-0.36) K/mm3 Baso # (Auto) (0.01-0.08) K/mm3 D-Dimer, Quantitative (0.19-0.50) mg/L Sodium (136-145) mEq/L Potassium (3.5-5.1) mEq/L Chloride (98-107) mEq/L Carbon Dioxide (21-32) mEq/L Anion Gap (5-15) BUN (7-18) mg/dL Creatinine (0.55-1.02) mg/dL Est Cr Clr Drug Dosing mL/min Estimated GFR (MDRD) (>60) mL/min BUN/Creatinine Ratio (14-18) Glucose (74-106) mg/dL Lactic Acid 0.8 (0.4-2.0) mmol/L Calcium (8.5-10.1) mg/dL Total Bilirubin (0.2-1.0) mg/dL AST (15-37) U/L ALT (14-59) U/L Alkaline Phosphatase (46-116) U/L C-Reactive Protein (<1.0) mg/dL Total Protein (6.4-8.2) g/dl Albumin (3.4-5.0) g/dl Globulin gm/dL Albumin/Globulin Ratio (1-2) Meds: Medications Generic Name Dose Route Start Last Admin Trade Name Freq PRN Reason Stop Dose Admin Sodium Chloride 100 mls @ 60 mls/hr 05/21/19 09:00 05/21/19 09:11 Normal Saline IV 60 mls/hr ASDIRECTED NEL Administration Sodium Chloride 10 ml 05/21/19 08:27 05/21/19 08:41 Saline Flush FLUSH 10 ml ASDIRECTED PRN Administration Keep Vein Open Sodium Chloride 10 ml 05/21/19 08:58 05/21/19 09:11 Saline Flush FLUSH 10 ml ONETIME PRN Administration Keep Vein Open Discontinued Medications Generic Name Dose Route Start Last Admin Trade Name Freq PRN Reason Stop Dose Admin Hydromorphone HCl 1 mg 05/21/19 08:28 05/21/19 08:39 Dilaudid IVPUSH 05/21/19 08:29 1 mg ONETIME ONE Administration Iopamidol 100 ml 05/21/19 08:58 05/21/19 09:11 Isovue-370 (76%) IVPUSH 05/21/19 08:59 100 ml ONETIME ONE Administration - Re-Assessments/Exams Free Text/Narrative Re-Assessment/Exam: 05/21/19 11:31 I ordered blood cultures from the PICC line and 1 from venous draw, labs, CT angio of her chest and US of her right arm. Her CBC looks good. Her D-dimer is elevated at 0.65. Her glucose is elevated at 228. Her lactic acid and CRP were normal. Her CT angio shows no pulmonary embolus identified. Near interval resolutions of left pleural effusion since 04/03/19, now trace, with small loculated fluid laterally toward the base. Decreased lingular and left lower lobe airspace opacity, could reflect residual pneumonia, again with some atelectasis or pneumonia medially in the right middle lobe. Essential interval resolution of previous mediastinal lymphadenopathy. The venous US shows DVT involving the right internal jugular and axillary veins as described. I called [facility] in [place] and talked with her infectious disease doctor Dr Gutiérrez and she wanted us to pull the PICC line and put in a peripheral line so she can use that the next couple nights. She will call her on Thursday and decide if she needs another PICC line. I will also get her on some xarellto and something more for pain. Departure - Departure Time of Disposition: 23:50 Disposition: Home, Self-Care 01 Condition: Good Clinical Impression: DVT of axillary vein, acute right Internal jugular (IJ) vein thromboembolism, acute Qualifiers: Laterality: right Qualified Code(s): I82.C11 - Acute embolism and thrombosis of right internal jugular vein Pneumonia Qualifiers: Pneumonia type: due to unspecified organism Laterality: right Lung location: upper lobe of lung Qualified Code(s): J18.1 - Lobar pneumonia, unspecified organism - Discharge Information *PRESCRIPTION DRUG MONITORING PROGRAM REVIEWED*: No *COPY OF PRESCRIPTION DRUG MONITORING REPORT IN PATIENT ANDRY: No Prescriptions: oxyCODONE HCl/Acetaminophen [Percocet 5-325 mg Tablet] 1 - 2 each PO Q6HR PRN # 20 tablet PRN Reason: Pain Rivaroxaban [Xarelto] 15 mg PO BID #42 tab Rivaroxaban [Xarelto] 20 mg PO DAILY #30 tablet Referrals: Maisha Hanley PA-C [Primary Care Provider] - 3 Days Forms: ED Department Discharge Additional Instructions: Use the peripheral IV for the rocephin the next couple of night. Dr Gutiérrez's office will call with a plan on Thursday. Take xarelto 15mg 2 times per day for 3 weeks and then take the 20mg pill daily. Take the percocets as needed for pain. Please return if you are worse. Follow up with Stella Hanley also so she is aware of what is going on. Sepsis Event Note - Evaluation Sepsis Screening Result: No Definite Risk - Focused Exam Vital Signs: Vital Signs Temp Pulse Resp BP Pulse Ox 05/21/19 07:58 97.3 F 129 H 20 148/115 H 99 Date Exam was Performed: 05/21/19 Time Exam was Performed: 11:39 - My Orders Last 24 Hours: My Active Orders 05/21/19 08:24 Cardiac Monitoring [RC] . DIRECTED 05/21/19 08:26 Ang Chest [CT] Stat Blood Culture x2 Reflex Set [OM.PC] Stat 05/21/19 08:27 Peripheral IV Care [RC] . DIRECTED VL Duplex Upr Ext Veins Ltd Rt [US] Stat Sodium Chloride 0.9% [Saline Flush] 10 ml FLUSH ASDIRECTED PRN Peripheral IV Insertion Adult [OM.PC] Routine 05/21/19 08:35 CULTURE BLOOD [BC] Stat 05/21/19 08:40 CULTURE BLOOD [BC] Stat 05/21/19 08:58 Sodium Chloride 0.9% [Saline Flush] 10 ml FLUSH ONETIME PRN 05/21/19 09:00 Sodium Chloride 0.9% [Normal Saline] 100 ml IV ASDIRECTED - Assessment/Plan Last 24 Hours: My Active Orders 05/21/19 08:24 Cardiac Monitoring [RC] . DIRECTED 05/21/19 08:26 Ang Chest [CT] Stat Blood Culture x2 Reflex Set [OM.PC] Stat 05/21/19 08:27 Peripheral IV Care [RC] . DIRECTED VL Duplex Upr Ext Veins Ltd Rt [US] Stat Sodium Chloride 0.9% [Saline Flush] 10 ml FLUSH ASDIRECTED PRN Peripheral IV Insertion Adult [OM.PC] Routine 05/21/19 08:35 CULTURE BLOOD [BC] Stat 05/21/19 08:40 CULTURE BLOOD [BC] Stat 05/21/19 08:58 Sodium Chloride 0.9% [Saline Flush] 10 ml FLUSH ONETIME PRN 05/21/19 09:00 Sodium Chloride 0.9% [Normal Saline] 100 ml IV ASDIRECTED
[2019-05-21] MEDS ORDERED: HYDROmorphone 0.5 MG/0.5 ML Syringe IVPUSH ONE (11:57)
[2019-05-21 12:11] VITALS: BP 129/99; PULSE 112
--- NOTE | 2019-05-22 10:49 | US ---
Right upper extremity venous ultrasound: Duplex and color Doppler evaluation was obtained of the right internal jugular, subclavian, axillary, brachial, cephalic, basilic, ulnar and radial veins. Findings: Thrombus is seen within the right internal jugular vein and within the right axillary vein. Subclavian veins and other veins appear to be patent. Basilic vein shows evidence of a PICC line. Impression: 1. Findings compatible with thrombus within the right internal jugular and right axillary vein. 2. PICC line within the basilic vein. Diagnostic code #5 Study was dictated in MDT Agree with preliminary report issued by [facility] ([facility] preliminary report dictated on 05/21/19, 11:47 AM Central Daylight Time) Study was dictated in [facility] Time
--- NOTE | 2019-05-22 10:49 | CT ---
CT chest Technique: Multiple axial sections were obtained from above the lung apices inferiorly through the lung bases. Intravenous contrast was utilized. Study performed as a pulmonary angiogram protocol. Comparison: Prior CT chest of 04/03/19. Findings: Pulmonary arteries are well-opacified. No filling defects are seen to indicate pulmonary embolism. No pericardial thickening is seen. Aorta shows no aneurysm. No pericardial thickening is seen. Small hiatal hernia is noted. Previous gastric surgery is present. Surgical clips are also noted from prior cholecystectomy. Significantly improved parenchymal density within the left lung base is seen presumably due to resolving pneumonia. Mild residual density remains. No acute parenchymal changes otherwise appreciated. Slightly decreased prominence of lymph nodes within the mediastinum are noted. No acute osseous finding is appreciated. Impression: 1. No findings of pulmonary embolism. 2. Improved parenchymal density within left base presumably due to resolving pneumonia. Findings have not yet completely cleared. 3. Decreased size of previous lymph nodes within the mediastinum. 4. Other findings as noted above. Nothing acute is appreciated. Diagnostic code #3 Agree with preliminary report issued by [facility] ([facility] preliminary report dictated on 05/21/19, 10:47 AM Central Daylight Time) Study was dictated in MDT
== END 2019-05-21 12:10 | disposition home or self-care (01) ==
LOC: JD.ED 07:40
DX: J18.1 Lobar pneumonia, unspecified organism (principal); I82.C11 Acute embolism and thrombosis of right internal jugular vein; I82.621 Acute embolism and thrombosis of deep veins of right upper extremity; E10.9 Type 1 diabetes mellitus without complications; E03.9 Hypothyroidism, unspecified; F32.9 Major depressive disorder, single episode, unspecified; J45.909 Unspecified asthma, uncomplicated; E66.9 Obesity, unspecified; Z68.36 Body mass index [BMI] 36.0-36.9, adult; Z79.899 Other long term (current) drug therapy; Z79.01 Long term (current) use of anticoagulants
CPT/HCPCS: 36415; 71275; 80053; 83605; 85025; 85379; 86140; 87040; 93971; 96361; 96374; 96376; 99285; J1170; J7050; Q9967; 99284

== ENCOUNTER 2019-06-06 09:40 | Emergency (ER) | payer OTHER ==
[2019-06-06 09:50] VITALS: BP 165/108; PULSE 131
--- NOTE | 2019-06-06 10:17 | EDM.PDOC ---
ED HPI GENERAL MEDICAL PROBLEM - General Chief Complaint: Respiratory Problem Stated Complaint: POSS COVID Time Seen by Provider: 06/06/19 09:53 Source of Information: Reports: Patient History Limitations: Reports: No Limitations - History of Present Illness INITIAL COMMENTS - FREE TEXT/NARRATIVE: Mrs. Weldon is a very pleasant 39-year-old woman with a past medical history significant for type 1 diabetes, who is now sent over from the COVID clinic because of shortness of breath, body aches, chills, hot flashes, rhinorrhea, and watery diarrhea that developed on , 06/02/2019. She has not had a fever. She tells me that [facility] for a left lower lobe lung abscess, treated by antibiotics via a right upper extremity PICC line. Her admission was complicated by the development of a right upper extremity DVT, treated with Xarelto, which she is still on. Here in the ED, the patient's initial BP is found to be elevated at 165/108, tachycardic at 131, and tachypneic at 25, however, she is afebrile, saturating 99% on room air. I have notified that, in addition to a test for the SARS-CoV-2 virus, the patient was also tested for influenza, which has returned negative. The patient's PCP is ROS Calderon. Her Production Controller is Dr. Viraj Russell. Generalized Pain Score (Numeric/FACES): 4 - Related Data Allergies Allergy/AdvReac Type Severity Reaction Status Date / Time No Known Allergies Allergy Verified 06/06/19 09:49 Home Meds: Home Meds Insulin Pump/Infus. Set/Meter [Accu-Chek Combo System] 1 each MC ASDIRECTED 03/28 [History] Lisinopril 2.5 mg PO BEDTIME 10/27/16 [History] Ondansetron [Zofran ODT] 4 mg PO Q6H PRN #12 tab.dis 05/31/17 [Rx] Multivitamin [Flintstones] 1 piece PO DAILY 07/19/17 [History] Brexpiprazole [Rexulti] 1 mg PO DAILY 01/02/18 [History] Levothyroxine 100 mcg PO ACBREAKFAST 01/02/18 [History] buPROPion [Wellbutrin] 100 mg PO ACLUNCH 01/02/18 [History] buPROPion [Wellbutrin] 200 mg PO ACBREAKFAST 01/02/18 [History] Pregabalin [Lyrica] 50 mg PO DAILY 04/03/19 [History] Rivaroxaban [Xarelto] 15 mg PO BID #42 tab 05/21/19 [Rx] Rivaroxaban [Xarelto] 20 mg PO DAILY #30 tablet 05/21/19 [Rx] oxyCODONE HCl/Acetaminophen [Percocet 5-325 mg Tablet] 1 - 2 each PO Q6HR PRN # 20 tablet 05/21/19 [Rx] Past Medical History HEENT History: Reports: Impaired Vision Other HEENT History: wears glasses Cardiovascular History: Reports: Blood Clots/VTE/DVT (PICC-line associated, RUE) Respiratory History: Reports: Asthma (suspected, not tested) Psychiatric History: Reports: Anxiety, Depression, Mood Swings Endocrine/Metabolic History: Reports: Diabetes, Type I, Hypothyroidism, Obesity/ BMI 30+ Hematologic History: Reports: Anemia, Iron Deficiency - Infectious Disease History Infectious Disease History: Reports: Chicken Pox - Past Surgical History HEENT Surgical History: Reports: Oral Surgery (wisdom teeth extraction), Tonsillectomy GI Surgical History: Reports: Bariatric Procedure (gastric bypass 2013, at [facility]), Cholecystectomy (2009 or 2010), Other (See Below) (Exploratory laparotomy for repair of internal hernia 03/21/2017) Female Surgical History: Reports: Section (x 2) Dermatological Surgical History: Reports: None Social & Family History - Family History Family Medical History: Noncontributory Cardiac: Reports: [place] Musculoskeletal: Reports: RA - Tobacco Use Smoking Status *Q: Former Smoker Years of Tobacco use: 5 Packs/Tins Daily: 0.1 Month/Year Tobacco Last Used: Quit around 1999 Second Hand Smoke Exposure: No - Caffeine Use Caffeine Use: Reports: None - Alcohol Use Alcohol Use History: Yes Alcohol Use Frequency: Rarely - Recreational Drug Use Recreational Drug Use: No - Living Situation & Occupation Living situation: Reports: , with Spouse, with Family (2 kids) 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 ED EXAM, GENERAL - Physical Exam Exam: See Below Exam Limited By: No Limitations General Appearance: Alert, WD/WN, No Apparent Distress Eye Exam: Bilateral Eye: EOMI, Normal Inspection Ears: Normal External Exam, Hearing Grossly Normal Nose: Normal Inspection Throat/Mouth: Normal Inspection, Normal Lips, Normal Voice, No Airway Compromise Head: Atraumatic, Normocephalic Neck: Normal Inspection, Full Range of Motion Respiratory/Chest: No Respiratory Distress, Lungs Clear, Normal Breath Sounds, No Accessory Muscle Use Cardiovascular: Normal Peripheral Pulses, No Edema, No Gallop, No JVD, No Murmur , No Rub, Tachycardia (regular) Peripheral Pulses: 4+: Radial (L), Radial (R) GI/Abdominal: Normal Bowel Sounds, Soft, Non-Tender, No Organomegaly, No Distention, No Abnormal Bruit, No Mass (Female) Exam: Deferred Rectal (Female) Exam: Deferred Back Exam: Normal Inspection, Full Range of Motion, NT Extremities: Normal Inspection, Normal Range of Motion, No Pedal Edema, Normal Capillary Refill Neurological: Alert, Oriented, Normal Cognition, No Motor/Sensory Deficits Psychiatric: Tearful Skin Exam: Warm, Dry, Intact, Normal Color, No Rash Course - Vital Signs Last Recorded V/S: Last Vital Signs Temp 36.7 C 06/06/19 09:47 Pulse 131 H 06/06/19 09:47 Resp 25 H 06/06/19 09:47 BP 165/108 H 06/06/19 09:47 Pulse Ox 99 06/06/19 09:47 - Orders/Labs/Meds Meds: Medications Discontinued Medications Generic Name Dose Route Start Last Admin Trade Name Babak PRN Reason Stop Dose Admin Hydrocodone Bitart/Acetaminophen 2 tab 06/06/19 11:29 06/06/19 11:38 Cummings 325-5 Mg PO 06/06/19 11:30 2 tab ONETIME ONE Administration Lactated Ringer's 1,000 mls @ 999 mls/hr 06/06/19 10:55 06/06/19 11:23 Ringers, Lactated IV 06/06/19 11:55 999 mls/hr .BOLUS ONE Administration - Re-Assessments/Exams Free Text/Narrative Re-Assessment/Exam: 06/06/19 10:05 Because the patient is recovering from a left lower lobe pulmonary abscess, her chest x-ray is going to be abnormal, however, I have ordered a chest x-ray to see if she has the bilateral infiltrates consistent with COVID-19. If she does not, then no further work-up is required today, however, if she does have bilateral infiltrates we will need to check additional blood work to estimate the severity of her illness. 06/06/19 10:44 Two-view chest radiograph appears to be grossly normal. The cardiac silhouette is within normal limits. No pulmonary vascular congestion. No pleural effusions. No focal infiltrate, although there is a slight blushing at the left costovertebral angle. No pneumothorax. Formal read per the Radiologist pending. 06/06/19 10:55 X-ray results discussed with the patient. Despite the reassurance of normal chest x-ray, the patient is still quite anxious and tearful. She feels like she might feel better if she were given IV fluid. I explained that because of the COVID-19 pandemic, one of our goals is to get patients in and out of the ER quickly, and the patient stated that she understood that, but nevertheless, she would like some IV fluid. I have no need to check blood work, but I have ordered 1 L of LR. 06/06/19 11:30 Notified by SINAI Zaragoza, that the patient is requesting something treat her pain from her right upper extremity DVT. I have ordered 2 tablets of Cummings, however, I do not intend to discharge her with a prescription. 06/06/19 12:43 The IV fluid has finished infusing. I will discharge her home. Departure - Departure Time of Disposition: 12:43 Disposition: Home, Self-Care 01 Condition: Good Clinical Impression: SOB (shortness of breath), Generalized body aches, Chills (without fever), Anxiety - Discharge Information *PRESCRIPTION DRUG MONITORING PROGRAM REVIEWED*: Not Applicable *COPY OF PRESCRIPTION DRUG MONITORING REPORT IN PATIENT ANDRY: Not Applicable Referrals: Maisha Hanley PA-C [Primary Care Provider] - Viraj Russell MD [Ordering Only Provider] - Forms: ED Department Discharge Additional Instructions: You were seen in the emergency room from the COVID clinic for shortness of breath, body aches, chills, hot flashes, runny nose, and diarrhea. Work-up in the ER included a chest x-ray, which returned unremarkable. You do not have pneumonia, and if you have COVID-19, you do not have any of the changes on the chest x-ray that are concerning for severe COVID-19 disease. You were given 1 L of IV fluid in the ER. We recommend that you continue to take your currently prescribed medicines. In addition to your physical symptoms, you also appeared to be suffering from significant anxiety. We recommend that you follow-up with your PCP, ROS Calderon, to discuss treatment options for anxiety. If any other problems, please do not hesitate to return to the ER. Sepsis Event Note - Evaluation Sepsis Screening Result: No Definite Risk - Focused Exam Vital Signs: Vital Signs Temp Pulse Resp BP Pulse Ox 06/06/19 09:47 36.7 C 131 H 25 H 165/108 H 99 Date Exam was Performed: 06/06/19 Time Exam was Performed: 12:43
--- NOTE | 2019-06-06 11:02 | CR ---
Chest: 2 views of the chest were obtained. Comparison: Prior chest x-ray of 04/03/19. Slight parenchymal density is noted within the lateral left costophrenic angle most likely representing residual scarring from previous pneumonia. Lungs otherwise are clear without definite acute parenchymal change. Heart size and mediastinum are normal. Bony structures appear within normal limits. Surgical clips are seen from prior cholecystectomy. Impression: 1. Findings as noted above. 2. Nothing acute is definitely appreciated. Diagnostic code #2 This report was dictated in MDT
[2019-06-06] MEDS: Lactated Ringers 1,000 ML IV ONE ×2 (11:23→11:24)
[2019-06-06] MEDS ORDERED: Acetaminophen/HYDROcodone 325-5 MG Tab PO ONE (11:29)
== END 2019-06-06 13:06 | disposition home or self-care (01) ==
LOC: JD.ED 09:40
DX: F41.9 Anxiety disorder, unspecified (principal); R52 Pain, unspecified; R68.83 Chills (without fever); E10.9 Type 1 diabetes mellitus without complications; E03.9 Hypothyroidism, unspecified; E66.9 Obesity, unspecified; Z79.899 Other long term (current) drug therapy; Z68.36 Body mass index [BMI] 36.0-36.9, adult
CPT/HCPCS: 71046; 99284; A9270; J7120

== ENCOUNTER 2019-08-18 11:29 | Emergency (ER) | payer OTHER ==
[2019-08-18 12:06] VITALS: BP 130/93; PULSE 116
[2019-08-18] MEDS ORDERED: Ondansetron 4 MG Tab.DIS PO ONE (12:22)
--- NOTE | 2019-08-18 12:40 | EDM.PDOC ---
ED HPI GENERAL MEDICAL PROBLEM - General Chief Complaint: Genitourinary Problem Stated Complaint: CHILLS/FREQUENT URINATION/BACK PAIN Time Seen by Provider: 08/18/19 12:07 Source of Information: Reports: Patient, RN Notes Reviewed History Limitations: Reports: No Limitations - History of Present Illness INITIAL COMMENTS - FREE TEXT/NARRATIVE: Patient is a 39-year-old female who presents to the ED for the evaluation of UTI-like symptoms. Patient notes that she had the symptoms started about 2 weeks ago, she thought they would get better but they have not relented. Patient notes that her urine is strong smelling and very cloudy, she does have low back pain, with some nausea, frequency in urination, chills but no fever, she has no dysuria. Patient notes no blood in her urine, but states she is a type I diabetic and notices her blood sugars have been in the 300s. Patient states that her low back pain does seem to radiate up to the right flank at times, but not often. She states she feels generally tired as well, and she states when her comes home that she crashes and does not do much otherwise. She did take 4 mg Zofran at 8 AM this morning for nausea management seem to help a little bit, but she is now nauseous again. She has not been taking any medications at home to try to clear the UTI. Her primary care provider is Stella Hanley. Treatments ATTENDANT ARCADE: Reports: Other (see below) Other Treatments ATTENDANT ARCADE: hydrocodone daily Back Pain Score (Numeric/FACES): 3 - Related Data Allergies Allergy/AdvReac Type Severity Reaction Status Date / Time No Known Allergies Allergy Verified 06/06/19 09:49 Home Meds: Home Meds Insulin Pump/Infus. Set/Meter [Accu-Chek Combo System] 1 each MC ASDIRECTED 07/11/16 [History] Lisinopril 2.5 mg PO BEDTIME 10/27/16 [History] Ondansetron [Zofran ODT] 4 mg PO Q6H PRN #12 tab.dis 05/31/17 [Rx] Multivitamin [Flintstones] 1 piece PO DAILY 07/19/17 [History] Brexpiprazole [Rexulti] 2 mg PO DAILY 01/02/18 [History] Levothyroxine 100 mcg PO ACBREAKFAST 01/02/18 [History] buPROPion [Wellbutrin] 100 mg PO ACLUNCH 01/02/18 [History] buPROPion [Wellbutrin] 200 mg PO ACBREAKFAST 01/02/18 [History] Pregabalin [Lyrica] 50 mg PO DAILY 04/03/19 [History] Rivaroxaban [Xarelto] 20 mg PO DAILY #30 tablet 05/21/19 [Rx] Amphetamine Sulfate 20 mg PO DAILY 08/18/19 [History] Cefdinir [Omnicef] 300 mg PO BID #10 cap 08/18/19 [Rx] Past Medical History HEENT History: Reports: Impaired Vision Other HEENT History: wears glasses Cardiovascular History: Reports: Blood Clots/VTE/DVT Other Cardiovascular History: states does not have HTN, is on Lisinopril "to protect my kidneys." blood clot in axilla and neck Respiratory History: Reports: Asthma Other Respiratory History: lung abscess Gastrointestinal History: Reports: Other (See Below) Other Gastrointestinal History: 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 - Infectious Disease History Infectious Disease History: Reports: Chicken Pox - Past Surgical History HEENT Surgical History: Reports: Oral Surgery, Tonsillectomy GI Surgical History: Reports: Bariatric Procedure, Cholecystectomy Female Surgical History: Reports: Section Social & Family History - Family History Family Medical History: Noncontributory Cardiac: Reports: [place] Musculoskeletal: Reports: RA - Tobacco Use Smoking Status *Q: Never Smoker - Caffeine Use Caffeine Use: Reports: Coffee, Soda - Recreational Drug Use Recreational Drug Use: No - Living Situation & Occupation Living situation: Reports: , with Spouse, with Family (2 kids) 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 ED EXAM, RENAL/ - Physical Exam Exam: See Below Exam Limited By: No Limitations General Appearance: Alert, WD/WN, No Apparent Distress Respiratory/Chest: No Respiratory Distress, Lungs Clear, Normal Breath Sounds, No Accessory Muscle Use, Chest Non-Tender Cardiovascular: Normal Peripheral Pulses, Regular Rate, Rhythm, No Murmur GI/Abdominal: Normal Bowel Sounds, Soft, No Distention, No Mass, Tender (suprapubic tenderness) Neurological: Alert, Oriented, Normal Cognition, No Motor/Sensory Deficits Psychiatric: Normal Affect, Normal Mood Skin Exam: Warm, Dry, Intact, Normal Color, No Rash Course - Vital Signs Last Recorded V/S: Last Vital Signs Temp 97.7 F 08/18/19 12:04 Pulse 116 H 08/18/19 12:04 Resp 20 08/18/19 12:04 BP 130/93 H 08/18/19 12:04 Pulse Ox 99 08/18/19 12:04 - Orders/Labs/Meds Orders: Active Orders 24 hr Category Date Time Status Oral Fluid Challenge [RC] ASDIRECTED Care 08/18/19 12:22 Ordered UA W/MICROSCOPIC [URIN] Stat Lab 08/18/19 12:07 Ordered Meds: Medications Discontinued Medications Generic Name Dose Route Start Last Admin Trade Name Freq PRN Reason Stop Dose Admin Ondansetron HCl 4 mg 08/18/19 12:22 08/18/19 12:26 Zofran Odt PO 08/18/19 12:23 4 mg ONETIME ONE Administration - Re-Assessments/Exams Free Text/Narrative Re-Assessment/Exam: 08/18/19 12:52 Patient presents to the ED for the evaluation of her ongoing UTI symptoms. UA was obtained at time of triage, she will get 4 mg ODT Zofran, and given fluids to drink. Analysis demonstrates 1+ leukocyte esterase, 10-20 white blood cells per high-power field, with no contamination. Urine was sent for culture, we will start her on Omnicef for UTI at this time. Departure - Departure Time of Disposition: 12:54 Disposition: Home, Self-Care 01 Condition: Good Clinical Impression: UTI (urinary tract infection) Qualifiers: Urinary tract infection type: acute cystitis Hematuria presence: without hematuria Qualified Code(s): N30.00 - Acute cystitis without hematuria - Discharge Information *PRESCRIPTION DRUG MONITORING PROGRAM REVIEWED*: No *COPY OF PRESCRIPTION DRUG MONITORING REPORT IN PATIENT ANDRY: No Instructions: Urinary Tract Infection, Adult, [id number] Referrals: Maisha Hanley PA-C [Primary Care Provider] - Additional Instructions: You have been evaluated in the ED for your urinary symptoms. Your urinalysis was consistent with an acute urinary tract infection. Your urine was sent for culture, and you will be notified if you should need a change in your antibiotic. This may take up to 48 hours to result. You may take AZO for urinary pain relief. This is available over the counter, and can be attained at any retail store like [employer] or any pharmacy. Please be aware that this medication will make your urine turn orange. You have been given a prescription for Cefdinir, 300 mg 1 tablet 2 times a day for 5 days. This has been electronically sent to the [facility] located near [facility]. Antibiotics can take up to 48 hours to start working. Please increase your oral fluid intake and try to stay adequately hydrated. Please take your oral Zofran as needed for further nausea as previously directed. Please return to the ED if your symptoms change or worsen. Sepsis Event Note (ED) - Evaluation Sepsis Screening Result: No Definite Risk - Focused Exam Vital Signs: Vital Signs Temp Pulse Resp BP Pulse Ox 08/18/19 12:04 97.7 F 116 H 20 130/93 H 99 - My Orders Last 24 Hours: My Active Orders 08/18/19 12:07 UA W/MICROSCOPIC [URIN] Stat 08/18/19 12:22 Oral Fluid Challenge [RC] ASDIRECTED - Assessment/Plan Last 24 Hours: My Active Orders 08/18/19 12:07 UA W/MICROSCOPIC [URIN] Stat 08/18/19 12:22 Oral Fluid Challenge [RC] ASDIRECTED
== END 2019-08-18 13:19 | disposition home or self-care (01) ==
LOC: JD.ED 11:29
DX: N30.00 Acute cystitis without hematuria (principal); E10.9 Type 1 diabetes mellitus without complications; E66.9 Obesity, unspecified; E03.9 Hypothyroidism, unspecified; F41.9 Anxiety disorder, unspecified; F32.9 Major depressive disorder, single episode, unspecified; Z87.440 Personal history of urinary (tract) infections; Z79.899 Other long term (current) drug therapy; Z68.37 Body mass index [BMI] 37.0-37.9, adult
CPT/HCPCS: 81001; 87086; 87088; 87186; 99283; A9270

== ENCOUNTER 2019-09-30 14:57 | Emergency (ER) | payer OTHER ==
[2019-09-30] MEDS ORDERED: Sodium Chloride 0.9% 10 ML Syringe FLUSH PRN (15:11)
[2019-09-30] MEDS ORDERED: Metoclopramide 10 MG/2 ML SDV IVPUSH ONE (15:12)
[2019-09-30] MEDS ORDERED: Sodium Chloride 0.9% 1,000 ML IV ONE (15:12)
--- NOTE | 2019-09-30 15:14 | EDM.PDOC ---
ED HPI GENERAL MEDICAL PROBLEM - General Chief Complaint: General Stated Complaint: 14 WEEKS PREG MULTIPLE ISSUES Time Seen by Provider: 09/30/19 15:11 Source of Information: Reports: Patient, RN Notes Reviewed History Limitations: Reports: No Limitations - History of Present Illness INITIAL COMMENTS - FREE TEXT/NARRATIVE: Patient is a 39-year-old female who presents to the ED for evaluation of a few different complaints. She is 14 weeks , G3, P2. She is followed by Dr. Abbasi at [facility] in [place] to x-ray medical to clinic in [place]. She states she is also a type I diabetic, but her blood sugars have been okay with last one was 103. She states that she has been having constipation, and states that her last bowel movement was 5 days ago. She is also complaining of body aches, but stopped her Lyrica a few weeks ago. She did take 1 tablet of [place] this morning for her body aches, and this seemed to help. Patient does have Phenergan and Zofran at home, but states this has not helped her nausea. She was also diagnosed with a UTI, and has been on 2 days of nitrofurantoin. She has not had any fevers, but has had chills, no cough or shortness of breath any chest pain or abdomen pain. She has not had any vaginal bleeding; or any abdomen cramping. She does note that the has been going well. She does state that her blood pressures been high, but it is 148/102 in the ER. Headache Pain Score (Numeric/FACES): 4 - Related Data Allergies Allergy/AdvReac Type Severity Reaction Status Date / Time No Known Allergies Allergy Verified 09/30/19 15:08 Home Meds: Home Meds Insulin Pump/Infus. Set/Meter [Accu-Chek Combo System] 1 each MC ASDIRECTED 07/11/16 [History] Ondansetron [Zofran ODT] 4 mg PO Q6H PRN #12 tab.dis 05/31/17 [Rx] Levothyroxine 112 mcg PO ACBREAKFAST 01/02/18 [History] buPROPion [Wellbutrin] 100 mg PO ACLUNCH 01/02/18 [History] buPROPion [Wellbutrin] 200 mg PO ACBREAKFAST 01/02/18 [History] FLUoxetine HCl [Prozac] 30 mg PO DAILY 09/30/19 [History] Hydrocodone/Acetaminophen [Hydrocodon-Acetaminoph 7.5-325] 1 each PO Q12HR PRN 09/30/19 [History] Magnesium Citrate 100 mg PO DAILY PRN 09/30/19 [History] Nitrofurantoin Harris/Macrocryst [Nitrofurantoin Harris-MCR] 100 mg PO BID 09/30/19 [History] Vits #93/Iron Fum/FA [ Formula Tablet] 1 each PO DAILY 09/30/19 [History] Promethazine [Phenergan] 0.5 ml TOP Q6HR PRN 09/30/19 [History] Past Medical History HEENT History: Reports: Impaired Vision Other HEENT History: wears glasses Cardiovascular History: Reports: Blood Clots/VTE/DVT Other Cardiovascular History: states does not have HTN, is on Lisinopril "to protect my kidneys." blood clot in axilla and neck Respiratory History: Reports: Asthma Other Respiratory History: lung abscess Gastrointestinal History: Reports: Other (See Below) Other Gastrointestinal History: 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 - Infectious Disease History Infectious Disease History: Reports: Chicken Pox - Past Surgical History HEENT Surgical History: Reports: Oral Surgery, Tonsillectomy GI Surgical History: Reports: Bariatric Procedure, Cholecystectomy Female Surgical History: Reports: Section Social & Family History - Family History Family Medical History: Noncontributory Cardiac: Reports: GA Musculoskeletal: Reports: RA - Tobacco Use Smoking Status *Q: Never Smoker - Caffeine Use Caffeine Use: Reports: Coffee - Recreational Drug Use Recreational Drug Use: No - Living Situation & Occupation Living situation: Reports: , with Spouse, with Family (2 kids) 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 ED EXAM, GENERAL - Physical Exam Exam: See Below Exam Limited By: No Limitations General Appearance: Alert, WD/WN, No Apparent Distress Throat/Mouth: Normal Inspection, Normal Lips, Normal Teeth, Normal Gums, Normal Oropharynx, Normal Voice, No Airway Compromise Head: Atraumatic, Normocephalic Respiratory/Chest: No Respiratory Distress, Lungs Clear, Normal Breath Sounds, No Accessory Muscle Use, Chest Non-Tender Cardiovascular: Normal Peripheral Pulses, Regular Rate, Rhythm, No Edema, No Murmur GI/Abdominal: Normal Bowel Sounds, Soft, Non-Tender, No Distention, No Mass Extremities: Normal Inspection, Normal Capillary Refill Neurological: Alert, Oriented, Normal Cognition, No Motor/Sensory Deficits Psychiatric: Normal Affect, Normal Mood Skin Exam: Warm, Dry, Intact, Normal Color, No Rash Course - Vital Signs Last Recorded V/S: Last Vital Signs Temp 96.1 F L 09/30/19 15:04 Pulse 112 H 09/30/19 15:04 Resp 18 09/30/19 15:04 BP 148/102 H 09/30/19 15:04 Pulse Ox 100 09/30/19 15:04 - Orders/Labs/Meds Orders: Active Orders 24 hr Category Date Time Status Peripheral IV Care [RC] . DIRECTED Care 09/30/19 15:11 Ordered Sodium Chloride 0.9% [Saline Flush] Med 09/30/19 15:11 Ordered 10 ml FLUSH ASDIRECTED PRN Peripheral IV Insertion Adult [OM.PC] Routine Oth 09/30/19 15:11 Ordered Medication Orders Sodium Chloride (Saline Flush) 10 ml FLUSH ASDIRECTED PRN PRN Reason: Keep Vein Open Last Admin: 09/30/19 15:33 Dose: 10 ml Documented by: FABY Labs: Laboratory Tests 09/30/19 09/30/19 Range/Units 15:30 15:30 WBC 6.96 (3.98-10.04) K/mm3 RBC 4.20 (3.98-5.22) M/mm3 Hgb 13.2 D (11.2-15.7) gm/dl Hct 40.4 (34.1-44.9) % MCV 96.2 H D (79.4-94.8) fl MCH 31.4 (25.6-32.2) pg MCHC 32.7 (32.2-35.5) g/dl RDW Std Deviation 70.3 H (36.4-46.3) fL Plt Count 279 (182-369) K/mm3 MPV 11.8 (9.4-12.3) fl Neut % (Auto) 68.8 (34.0-71.1) % Lymph % (Auto) 19.4 (19.3-51.7) % Harris % (Auto) 8.2 (4.7-12.5) % Eos % (Auto) 3.2 (0.7-5.8) Baso % (Auto) 0.4 (0.1-1.2) % Neut # (Auto) 4.79 (1.56-6.13) K/mm3 Lymph # (Auto) 1.35 (1.18-3.74) K/mm3 Harris # (Auto) 0.57 H (0.24-0.36) K/mm3 Eos # (Auto) 0.22 (0.04-0.36) K/mm3 Baso # (Auto) 0.03 (0.01-0.08) K/mm3 Sodium 134 L (136-145) mEq/L Potassium 3.4 L (3.5-5.1) mEq/L Chloride 100 (98-107) mEq/L Carbon Dioxide 28 (21-32) mEq/L Anion Gap 9.4 (5-15) BUN 3 L (7-18) mg/dL Creatinine 0.7 (0.55-1.02) mg/dL Est Cr Clr Drug Dosing 108.85 mL/min Estimated GFR (MDRD) > 60 (>60) mL/min BUN/Creatinine Ratio 4.3 L (14-18) Glucose 106 (74-106) mg/dL Calcium 9.0 (8.5-10.1) mg/dL Magnesium 1.8 (1.8-2.4) mg/dl Total Bilirubin 0.2 (0.2-1.0) mg/dL AST 17 (15-37) U/L ALT 34 (14-59) U/L Alkaline Phosphatase 120 H (46-116) U/L Total Protein 7.6 (6.4-8.2) g/dl Albumin 3.7 (3.4-5.0) g/dl Globulin 3.9 gm/dL Albumin/Globulin Ratio 1.0 (1-2) Meds: Medications Generic Name Dose Route Start Last Admin Trade Name Babak PRN Reason Stop Dose Admin Sodium Chloride 10 ml 09/30/19 15:11 09/30/19 15:33 Saline Flush FLUSH 10 ml ASDIRECTED PRN Administration Keep Vein Open Discontinued Medications Generic Name Dose Route Start Last Admin Trade Name Babak PRN Reason Stop Dose Admin Acetaminophen 650 mg 09/30/19 17:01 09/30/19 17:33 Tylenol PO 09/30/19 17:02 650 mg NOW ONE Administration Sodium Chloride 1,000 mls @ 999 mls/hr 09/30/19 15:12 09/30/19 15:33 Normal Saline IV 09/30/19 16:12 999 mls/hr ONETIME ONE Administration Magnesium Citrate 296 ml 09/30/19 17:01 09/30/19 17:33 Citrate Of Magnesia PO 09/30/19 17:02 296 ml ONETIME ONE Administration Metoclopramide HCl 10 mg 09/30/19 15:12 09/30/19 15:34 Reglan IVPUSH 09/30/19 15:13 10 mg ONETIME ONE Administration - Re-Assessments/Exams Free Text/Narrative Re-Assessment/Exam: 09/30/19 15:30 Patient presents to the ED for her multiple complaints. Have ordered basic labs, IV fluids and nausea medications. Unsure if her nausea is d/t her constipation or ongoing UTI issues. 09/30/19 17:55 Patient reports she is having pain in her knees, but does feel better otherwise. She will get 1 tablet of [place] for pain management at this time. She will be discharged home with general recommendations. She was given a bottle of mag citrate to help facilitate a bowel movement. Departure - Departure Time of Disposition: 17:56 Disposition: Home, Self-Care 01 Condition: Good Clinical Impression: Constipation Qualifiers: Constipation type: other constipation type Qualified Code(s): K59.09 - Other constipation Nausea and vomiting Qualifiers: Vomiting type: unspecified Vomiting Intractability: non-intractable Qualified Code(s): R11.2 - Nausea with vomiting, unspecified - Discharge Information *PRESCRIPTION DRUG MONITORING PROGRAM REVIEWED*: No *COPY OF PRESCRIPTION DRUG MONITORING REPORT IN PATIENT ANDRY: No Instructions: Constipation, Adult, [id number], Nausea and Vomiting, Adult, [id number] Referrals: Suzan Abbasi MD [Primary Care Provider] - Forms: ED Department Discharge Additional Instructions: You were evaluated in the ER today regarding a few complaints. It is likely that you are suffering from constipation, which can cause nausea. You were given a bottle of magnesium citrate for improvement of this, you are to drink one half bottle in the ER, wait a few hours, if you do not have a rather large bowel movement, complete the last half bottle. Please continue to take your hydrocodone as directed by your DEVELOPING MACHINE TENDER for pain management. You may take 650 mg Tylenol every 6 hours as needed for further pain relief, please do not exceed 4000 mg Tylenol in a 24-hour time span. Recommend you try to stick to a clear liquid diet for the next 24 to 48 hours and advance to bland as tolerated. Please use your antinausea medications at home as previously directed. Please return to the ER at any time if symptoms change or worsen. Sepsis Event Note (ED) - Evaluation Sepsis Screening Result: No Definite Risk - Focused Exam Vital Signs: Vital Signs Temp Pulse Resp BP Pulse Ox 09/30/19 15:04 96.1 F L 112 H 18 148/102 H 100 - My Orders Last 24 Hours: My Active Orders 09/30/19 15:11 Peripheral IV Care [RC] . DIRECTED Sodium Chloride 0.9% [Saline Flush] 10 ml FLUSH ASDIRECTED PRN Peripheral IV Insertion Adult [OM.PC] Routine - Assessment/Plan Last 24 Hours: My Active Orders 09/30/19 15:11 Peripheral IV Care [RC] . DIRECTED Sodium Chloride 0.9% [Saline Flush] 10 ml FLUSH ASDIRECTED PRN Peripheral IV Insertion Adult [OM.PC] Routine
[2019-09-30 15:28] VITALS: BP 148/102; PULSE 112
[2019-09-30] MEDS ORDERED: Acetaminophen 325 MG Tab PO ONE (17:01)
[2019-09-30] MEDS ORDERED: Magnesium Citrate Solution 296 ML Bottle PO ONE (17:01)
[2019-09-30] MEDS ORDERED: HYDROmorphone 0.5 MG/0.5 ML Syringe IVPUSH ONE (17:59)
== END 2019-09-30 18:20 | disposition home or self-care (01) ==
LOC: JD.ED 14:57
DX: O21.9 Vomiting of pregnancy, unspecified (principal); O99.612 Diseases of the digestive system complicating pregnancy, second trimester; K59.09 Other constipation; O24.012 Pre-existing type 1 diabetes mellitus, in pregnancy, second trimester; E10.9 Type 1 diabetes mellitus without complications; O99.342 Other mental disorders complicating pregnancy, second trimester; F41.9 Anxiety disorder, unspecified; F31.9 Bipolar disorder, unspecified; O99.212 Obesity complicating pregnancy, second trimester; Z98.890 Other specified postprocedural states; Z79.899 Other long term (current) drug therapy
CPT/HCPCS: 36415; 80053; 83735; 85025; 96361; 96374; 96375; 99284; A9270; J1170; J2765; J7030; 99283

== ENCOUNTER 2019-11-12 15:30 | Emergency (ER) | payer OTHER ==
--- NOTE | 2019-11-12 16:00 | EDM.PDOC ---
<Bib Rivera - Last Filed: 11/12/19 15:59> ED HPI GENERAL MEDICAL PROBLEM - General Chief Complaint: Respiratory Problem Stated Complaint: 20 WEEKS PREG COVID SX Time Seen by Provider: 11/12/19 15:59 - History of Present Illness Treatments VEST FINISHER: Reports: Acetaminophen, Breathing Treatments Generalized Pain Score (Numeric/FACES): 8 - Related Data Allergies Allergy/AdvReac Type Severity Reaction Status Date / Time No Known Allergies Allergy Verified 11/12/19 15:48 Home Meds: Home Meds Insulin Pump/Infus. Set/Meter [Accu-Chek Combo System] 1 each MC ASDIRECTED 07/11/16 [History] Ondansetron [Zofran ODT] 4 mg PO Q6H PRN #12 tab.dis 05/31/17 [Rx] Levothyroxine 112 mcg PO ACBREAKFAST 01/02/18 [History] buPROPion [Wellbutrin] 100 mg PO ACLUNCH 01/02/18 [History] buPROPion [Wellbutrin] 200 mg PO ACBREAKFAST 01/02/18 [History] FLUoxetine HCl [Prozac] 30 mg PO DAILY 09/30/19 [History] Hydrocodone/Acetaminophen [Hydrocodon-Acetaminoph 7.5-325] 1 each PO Q12HR PRN 09/30/19 [History] Magnesium Citrate 100 mg PO DAILY PRN 09/30/19 [History] Vits #93/Iron Fum/FA [ Formula Tablet] 1 each PO DAILY 09/30/19 [History] Promethazine [Phenergan] 0.5 ml TOP Q6HR PRN 09/30/19 [History] Acetaminophen/HYDROcodone [[place] 325-5 MG] 1 tab PO Q6H PRN #3 tablet 11/12/19 [Rx] Albuterol [Ventolin HFA] PRN 11/12/19 [History] predniSONE 40 mg PO WITHBREAKFAST 4 Days #8 tab 11/12/19 [Rx] Past Medical History HEENT History: Reports: Impaired Vision Other HEENT History: wears glasses Cardiovascular History: Reports: Blood Clots/VTE/DVT Other Cardiovascular History: states does not have HTN, is on Lisinopril "to protect my kidneys." blood clot in axilla and neck Respiratory History: Reports: Asthma Other Respiratory History: lung abscess Gastrointestinal History: Reports: Other (See Below) Other Gastrointestinal History: 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 VOLTAGE ELECTRICIAN History: Reports: Musculoskeletal History: Reports: RA Other Musculoskeletal History: will be seeing rheumatoid arthritis specialist this month to see if she has rheumatoid arthritis Neurological History: Reports: None Psychiatric History: Reports: Anxiety, Depression, Mood Swings Endocrine/Metabolic History: Reports: Diabetes, Type I, Hypothyroidism, Obesity/BMI 30+ Type of Insulin Used in Pump: novolog When was Your Last Insulin Site/Set Changed: 11/11/19 Who Manages Your Pump: Patient (Self) Basal Rate (Units/hr): 1.1 Do You Give Correction Boluses or Sliding Scale: Yes Patient Able to Demonstrate: Current Pump Settings (Basal Rates), Describe How to Change Infusion Set & Insertion Set, Home Meter Results within 15% of Hospital Meter Results, How to Get to Bolus Settings & Administer if Needed, Suspend Pump Hematologic History: Reports: Anemia, Iron Deficiency Other Hematologic History: states had iron transfusion this past . Immunologic History: Reports: None Oncologic (Cancer) History: Reports: None Dermatologic History: Reports: None - Infectious Disease History Infectious Disease History: Reports: Chicken Pox - Past Surgical History HEENT Surgical History: Reports: Oral Surgery, Tonsillectomy GI Surgical History: Reports: Bariatric Procedure, Cholecystectomy Female Surgical History: Reports: Section Social & Family History - Family History Family Medical History: Noncontributory Cardiac: Reports: [place] Musculoskeletal: Reports: RA - Tobacco Use Smoking Status *Q: Never Smoker - Caffeine Use Caffeine Use: Reports: None - Recreational Drug Use Recreational Drug Use: No - Living Situation & Occupation Living situation: Reports: , with Spouse, with Family (2 kids) 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, [employer]) Departure - Departure Disposition: Home, Self-Care 01 Clinical Impression: Headache around the eyes, Viral upper respiratory infection, Asthma attack, Chronic pain disorder - Discharge Information Prescriptions: Acetaminophen/HYDROcodone [[place] 325-5 MG] 1 tab PO Q6H PRN #3 tablet PRN Reason: Pain (Severe 7-10) predniSONE 40 mg PO WITHBREAKFAST 4 Days #8 tab Instructions: Cough, Adult, [id number], Viral Respiratory Infection, [id number] Referrals: Maisha Hanley PA-C [Primary Care Provider] - Forms: ED Department Discharge Additional Instructions: Continue to take all home medications as prescribed. In addition take prednisone 20 mg's, 2 tabs every morning for the next 4 days. Use your albuterol inhaler as directed for cough, wheezing, and shortness of breath. Suggest speaking with your primary care provider and LOW VOLTAGE ELECTRICIAN for further management of anxiety. Keep pushing the fluids. Eat a balanced diet. The cough improved with the introduction of the prednisone over the next 24 hours. Saline spray 1 spray to each nare for sinus congestion. Tylenol 650 mg every 4- 6 hours for headache. Return to ED if you develop any new or worsening symptoms. No driving this evening since receiving a sedative medication. Sepsis Event Note (ED) - Evaluation Sepsis Screening Result: Possible Sepsis Risk <Arpan Bourne - Last Filed: 11/14/19 19:27> ED HPI GENERAL MEDICAL PROBLEM - General Source of Information: Reports: Patient History Limitations: Reports: Respiratory Distress - History of Present Illness INITIAL COMMENTS - FREE TEXT/NARRATIVE: Patient is a 39-year-old female who is 20 weeks with a history of asthma presents to the ED complaining of a 2-day history of sinus congestion, postnasal drip, and nonproductive cough with shortness of breath today. Patient was seen by PCP yesterday with a COVID test obtained. This is still pending. There has been no documented fever but notes with development of upper respiratory symptoms it often settles in her lungs causing exacerbation of her asthma. She is a type I diabetic who states prior to onset of upper respiratory infection had tight control blood sugars. Blood sugars as of recent have been 170-180. She has some mild chest discomfort described as being tight. Similar to previous asthma attacks. She has used her rescue inhaler today multiple times causing increasing anxiety and no significant improvements to her cough. In addition she is also got a headache with some nausea and vomiting that also precipitated worsening anxiety. Eating and drinking have been limited due to the nausea and intermittent vomiting. Has not urinated since yesterday. There has been no known complications with her . She carries a history of blood clot to a PICC line. She has never had a blood clot to her lower extremities or to her lungs. She has no voiding symptoms. No rash, sore throat, hemoptysis, documented fever, dizziness, abdominal pain, or dysuria. ED ROS GENERAL - Review of Systems Review Of Systems: Comprehensive ROS is negative, except as noted in HPI. ED EXAM, GENERAL - Physical Exam Exam: See Below Exam Limited By: Respiratory Distress General Appearance: Alert, WD/WN, Anxious, Mild Distress Eye Exam: Bilateral Eye: Normal Inspection Ears: Hearing Grossly Normal Nose: Normal Inspection Throat/Mouth: Normal Voice, No Airway Compromise Neck: Normal Inspection, Supple Respiratory/Chest: No Accessory Muscle Use, Chest Non-Tender, Respiratory Dis tress, Rhonchi, Wheezing. No: Decreased Breath Sounds, Stridor, Accessory Muscle Use, Retractions, Splinting, Prolonged Expiration Cardiovascular: Normal Peripheral Pulses, Tachycardia. No: Regular Rate, Rhythm, No Murmur Peripheral Pulses: 2+: Radial (R) GI/Abdominal: Normal Bowel Sounds, Soft, Non-Tender Back Exam: Normal Inspection Extremities: Normal Inspection, Normal Range of Motion, Non-Tender, No Pedal Edema, Other (Negative Homans sign). No: Pedal Edema, Darell's Sign, Leg Pain, Limited Range of Motion, Increased Warmth, Redness Neurological: Alert, Oriented, Normal Cognition, No Motor/Sensory Deficits Psychiatric: Normal Affect, Normal Mood Skin Exam: Warm, Dry, Intact, Normal Color Course - Vital Signs Last Recorded V/S: Last Vital Signs Temp 98.7 F 11/12/19 16:51 Pulse 110 H 11/12/19 18:35 Resp 30 H 11/12/19 15:41 BP 107/74 11/12/19 18:35 Pulse Ox 98 11/12/19 18:35 - Orders/Labs/Meds Labs: Laboratory Tests 11/12/19 11/12/19 11/12/19 Range/Units 16:02 16:02 16:02 WBC 11.65 H (3.98-10.04) K/mm3 RBC 3.75 L (3.98-5.22) M/mm3 Hgb 12.5 (11.2-15.7) gm/dl Hct 38.2 (34.1-44.9) % MCV 101.9 H D (79.4-94.8) fl MCH 33.3 H (25.6-32.2) pg MCHC 32.7 (32.2-35.5) g/dl RDW Std Deviation 53.5 H (36.4-46.3) fL Plt Count 281 (182-369) K/mm3 MPV 12.0 (9.4-12.3) fl Neutrophils % (Manual) 82 H (40-60) % Band Neutrophils % 1 (0-10) % Lymphocytes % (Manual) 13 L (20-40) % Atypical Lymphs % 0 % Monocytes % (Manual) 2 (2-10) % Eosinophils % (Manual) 2 (0.7-5.8) % Basophils % (Manual) 0 L (0.1-1.2) Platelet Estimate Adequate Anisocytosis 2+ moderate Macrocytosis 2+ moderate RBC Morph Comment Not Reportable PT (9.7-11.7) SECONDS INR APTT (22-31) SECONDS Sodium 137 (136-145) mEq/L Potassium 3.5 (3.5-5.1) mEq/L Chloride 102 (98-107) mEq/L Carbon Dioxide 25 (21-32) mEq/L Anion Gap 13.5 (5-15) BUN 9 (7-18) mg/dL Creatinine 0.8 (0.55-1.02) mg/dL Est Cr Clr Drug Dosing 95.24 mL/min Estimated GFR (MDRD) > 60 (>60) mL/min BUN/Creatinine Ratio 11.3 L (14-18) Glucose 85 (74-106) mg/dL POC Glucose (70-105) mg/dL Calcium 8.7 (8.5-10.1) mg/dL Ferritin 134 (8-252) ng/ml Total Bilirubin 0.2 (0.2-1.0) mg/dL AST 19 (15-37) U/L ALT 18 (14-59) U/L Alkaline Phosphatase 109 (46-116) U/L Lactate Dehydrogenase 164 (81-234) U/L Troponin I < 0.017 (0.00-0.056) ng/mL C-Reactive Protein 15.4 H* (<1.0) mg/dL Total Protein 7.0 (6.4-8.2) g/dl Albumin 2.9 L (3.4-5.0) g/dl Globulin 4.1 gm/dL Albumin/Globulin Ratio 0.7 L (1-2) HCG, Quant mIU/mL SARS-CoV-2 RNA (DASIA) (NEGATIVE) 11/12/19 11/12/19 11/12/19 Range/Units 16:02 16:02 16:02 WBC (3.98-10.04) K/mm3 RBC (3.98-5.22) M/mm3 Hgb (11.2-15.7) gm/dl Hct (34.1-44.9) % MCV (79.4-94.8) fl MCH (25.6-32.2) pg MCHC (32.2-35.5) g/dl RDW Std Deviation (36.4-46.3) fL Plt Count (182-369) K/mm3 MPV (9.4-12.3) fl Neutrophils % (Manual) (40-60) % Band Neutrophils % (0-10) % Lymphocytes % (Manual) (20-40) % Atypical Lymphs % % Monocytes % (Manual) (2-10) % Eosinophils % (Manual) (0.7-5.8) % Basophils % (Manual) (0.1-1.2) Platelet Estimate Anisocytosis Macrocytosis RBC Morph Comment PT 9.8 (9.7-11.7) SECONDS INR < 0.93 APTT 28 (22-31) SECONDS Sodium (136-145) mEq/L Potassium (3.5-5.1) mEq/L Chloride (98-107) mEq/L Carbon Dioxide (21-32) mEq/L Anion Gap (5-15) BUN (7-18) mg/dL Creatinine (0.55-1.02) mg/dL Est Cr Clr Drug Dosing mL/min Estimated GFR (MDRD) (>60) mL/min BUN/Creatinine Ratio (14-18) Glucose (74-106) mg/dL POC Glucose (70-105) mg/dL Calcium (8.5-10.1) mg/dL Ferritin (8-252) ng/ml Total Bilirubin (0.2-1.0) mg/dL AST (15-37) U/L ALT (14-59) U/L Alkaline Phosphatase (46-116) U/L Lactate Dehydrogenase (81-234) U/L Troponin I (0.00-0.056) ng/mL C-Reactive Protein (<1.0) mg/dL Total Protein (6.4-8.2) g/dl Albumin (3.4-5.0) g/dl Globulin gm/dL Albumin/Globulin Ratio (1-2) HCG, Quant 8378.0 mIU/mL SARS-CoV-2 RNA (DASIA) Negative (NEGATIVE) 11/12/19 Range/Units 22:17 WBC (3.98-10.04) K/mm3 RBC (3.98-5.22) M/mm3 Hgb (11.2-15.7) gm/dl Hct (34.1-44.9) % MCV (79.4-94.8) fl MCH (25.6-32.2) pg MCHC (32.2-35.5) g/dl RDW Std Deviation (36.4-46.3) fL Plt Count (182-369) K/mm3 MPV (9.4-12.3) fl Neutrophils % (Manual) (40-60) % Band Neutrophils % (0-10) % Lymphocytes % (Manual) (20-40) % Atypical Lymphs % % Monocytes % (Manual) (2-10) % Eosinophils % (Manual) (0.7-5.8) % Basophils % (Manual) (0.1-1.2) Platelet Estimate Anisocytosis Macrocytosis RBC Morph Comment PT (9.7-11.7) SECONDS INR APTT (22-31) SECONDS Sodium (136-145) mEq/L Potassium (3.5-5.1) mEq/L Chloride (98-107) mEq/L Carbon Dioxide (21-32) mEq/L Anion Gap (5-15) BUN (7-18) mg/dL Creatinine (0.55-1.02) mg/dL Est Cr Clr Drug Dosing mL/min Estimated GFR (MDRD) (>60) mL/min BUN/Creatinine Ratio (14-18) Glucose (74-106) mg/dL POC Glucose 156 H (70-105) mg/dL Calcium (8.5-10.1) mg/dL Ferritin (8-252) ng/ml Total Bilirubin (0.2-1.0) mg/dL AST (15-37) U/L ALT (14-59) U/L Alkaline Phosphatase (46-116) U/L Lactate Dehydrogenase (81-234) U/L Troponin I (0.00-0.056) ng/mL C-Reactive Protein (<1.0) mg/dL Total Protein (6.4-8.2) g/dl Albumin (3.4-5.0) g/dl Globulin gm/dL Albumin/Globulin Ratio (1-2) HCG, Quant mIU/mL SARS-CoV-2 RNA (DASIA) (NEGATIVE) Meds: Medications Discontinued Medications Generic Name Dose Route Start Last Admin Trade Name Freq PRN Reason Stop Dose Admin Hydrocodone Bitart/Acetaminophen 1 tab 11/12/19 16:25 11/12/19 16:43 [place] 325-5 Mg PO 11/12/19 16:26 1 tab ONETIME ONE Administration Dextrose Confirm 11/12/19 17:53 11/12/19 17:56 Glutose 15 Administered 11/12/19 17:54 Not Given Dose 15 gm .ROUTE .STK-MED ONE Dextrose 15 gm 11/12/19 17:55 11/12/19 17:57 Glutose 15 PO 11/12/19 17:56 15 gm ONETIME ONE Administration Hydromorphone HCl 0.5 mg 11/12/19 19:31 11/12/19 19:41 Dilaudid IVPUSH 11/12/19 19:32 0.5 mg ONETIME ONE Administration Sodium Chloride 1,000 mls @ 150 mls/hr 11/12/19 16:30 11/12/19 16:43 Normal Saline IV 150 mls/hr ASDIRECTED NEL Administration Magnesium Sulfate 2 gm in 50 mls @ 25 mls/hr 11/12/19 18:15 11/12/19 18:33 Magnesium Sulfate In Water Premix IV 11/12/19 20:14 25 mls/hr ONETIME ONE Administration Sodium Chloride 1,000 mls @ 999 mls/hr 11/12/19 20:18 11/12/19 20:22 Normal Saline IV 11/12/19 21:18 999 mls/hr ONETIME ONE Administration Magnesium Sulfate 2 gm 11/12/19 17:54 Magnesium Sulfate In Water Premix IV 11/12/19 17:55 ONETIME ONE Methylprednisolone Sodium Succinate 40 mg 11/12/19 16:20 11/12/19 16:44 Solu-Medrol IVPUSH 11/12/19 16:21 40 mg ONETIME ONE Administration Ondansetron HCl 4 mg 10/03/20 16:25 11/12/19 16:43 Zofran IVPUSH 11/12/19 16:26 4 mg ONETIME ONE Administration Oxymetazoline HCl 1 ml 11/12/19 17:54 11/12/19 18:00 Nasal Decongestant [place] ERYN 11/12/19 17:55 1 spray ONETIME ONE Administration - Re-Assessments/Exams Free Text/Narrative Re-Assessment/Exam: On exam patient's vital signs blood pressure 129/56, respiratory rate 30, temperature 98.5, pulse 124, and O2 sats were 2% on room air. Patient appears to be quite anxious. She has taken her rescue inhaler albuterol 5 different times today with no relief. She has a headache with some nausea and vomiting that has also precipitated some of the anxiety as well. She states just recently had a COVID test this past Thursday does not have the results. She developed sinus congestion runny nose and a mild cough that has been described as nonproductive. Every time she has some sinus congestion she develops a cough exacerbating her asthma. She is 20 weeks , type I diabetic, with a history of blood clot to a PICC line. She has no history of PE. She has no symptoms concerning for blood clot to her lower extremities. Complains of some mild chest discomfort. Described as inability to take a deep breath. When she relaxes she is able to speak in complete sentences. Initial labs and studies will include: CBC, CMP, COVID, ferritin, hCG quantitative, coag studies, LDH, troponin, x-ray of the chest, CRP and EKG. EKG sinus tachycardia with no S1Q3T3. Essentially normal with no acute ST changes noted. Ordered IV with normal saline 150 mL/h, Zofran 4 mg IVP, slight Medrol 40 mg IVP as well as acetaminophen with hydrocodone. Will not offer any additional albuterol treatments at this time due to the tachycardia. 1629 Reassessment continues to have a cough. She appears to be anxious. Heart rate trends down to 110 with O2 sats at 100%. We did place the patient on low flow O2 via nasal cannula at 2 L/min. heart tones 158/min 1727 chest x-ray impression: No acute findings. 11/12/19 17:50 I did speak with Dr. Roberts on-call LOW VOLTAGE ELECTRICIAN due to her high risk . Discussed patient's status with him. Currently her blood pressure is 132/79, heart rate 104, O2 sats 95% on room air. On exam patient did have some expiratory wheezing and continues to have mild cough. She is slightly anxious still and notes that she is having some chest discomfort with coughing. I reviewed labs with him as well as the chest x-ray. He agreed that magnesium 2 g IV may be of benefit. No contraindications noted. Suspect because of elevated tachycardia this secondary to using albuterol and being dehydrated with history of poor fluid intake, and anxiety. At this point he agrees that a d-dimer would be positive with . If any concerns of a PE go ahead and proceed with a CT angio. Patient is a type I diabetic with insulin pump. This has been suspended. Her blood sugar has trended down to 45. She was provided juice and also a food tray. I will also have the patient receive oral glucose. 11/12/19 19:30 Reassessment, patient states she feels dehydrated. Headache persists not acute. Remainder of IVF's will be ran in. I have ordered dilaudid 0.5mg IVP. BS 174. Labs reviewed: White blood cell count 11.65, hemoglobin 12.5, neutrophil percent is 82 with no left shift. Slightly low lymphocytes of 13. Sodium potassium are normal. AG is normal. Creatinine 0.8. Troponin normal. Ferritin and LDH are within normal limits as well. CRP is elevated at 15.4 suspected secondary to , VIRAL URI, and asthma attack. HCG quantitative is 8378. COVID is negative. 11/12/19 21:08 Vital Signs: BP 131/83, heart rate 96, O2 sats 97% on room air and respiratory rate 16. Heart rate has trended downward with further pain management for the headache and also IV fluids. Patient is feeling much better since receiving these beats. 11/12/19 21:30 Patient resting comfortably in bed. She does have a intermittent cough. There is no hypoxia. Vital signs are stable. Heart rate does drop down to 97 when resting. She is ready to be discharged home. With further discussion patient was anxious with developing respiratory symptoms and fear of developing covid and pneumonia. She has not been sleeping great at home with this since is has been difficult for her. She has been under a lot more stress and recognizes she needs a good night sleep. At this time she does not have covid nor pneumonia. I suspect this is viral in etiology and should pass on its own accord over the next few days. We discussed steroid treatment prednisone 40 mg every day as well use over Proventil inhaler. Had no further questions or concerns. She agreed with plan. Discharge instructions as document. 11/12/19 22:00 Prior to be in discharged patient requested I speak with her. Patient has a history of diabetic neuropathy and was on gabapentin in the past. She currently is taking hydrocodone 7.5 3 25 and does not have this medication for tomorrow. She is requesting I send her home with a few pills to get her through tomorrow when the new prescription starts on Thursday. States this was part of her anxiety of not having pain medications tomorrow. Patient will receive a prescription for 5325 3 tabs. During conversation patient was able to have a conversation utilizing complete sentences. She did not appear in any respiratory distress. Her lungs were clear on auscultation. Departure - Departure Time of Disposition: 21:46 Condition: Good
[2019-11-12] MEDS ORDERED: methylPREDNISolone Sodium Succinate 125 MG/2 ML SDV IVPUSH ONE (16:20)
[2019-11-12] MEDS ORDERED: Ondansetron 4 MG/2 ML SDV IVPUSH ONE (16:25)
[2019-11-12] MEDS ORDERED: Acetaminophen/HYDROcodone 325-5 MG Tab PO ONE (16:25)
[2019-11-12] MEDS ORDERED: Sodium Chloride 0.9% 1,000 ML IV SCH (16:30)
[2019-11-12] MEDS ORDERED: Glucose Gel 15 GM in 37.5 GM Tube ONE (17:53)
[2019-11-12] MEDS ORDERED: Oxymetazoline 0.05% Nasal Spray 30 ML Bottle NAS ONE (17:54)
[2019-11-12] MEDS ORDERED: Magnesium Sulfate/Water 2 GM/50 ML Premix Bag IV ONE (17:54)
[2019-11-12] MEDS ORDERED: Glucose Gel 15 GM in 37.5 GM Tube PO ONE (17:55)
[2019-11-12] MEDS ORDERED: Magnesium Sulfate/Water 2 GM/50 ML BAG IV ONE (18:15)
[2019-11-12 18:35] VITALS: BP 107/74; PULSE 110
[2019-11-12] MEDS ORDERED: HYDROmorphone 0.5 MG/0.5 ML Syringe IVPUSH ONE (19:31)
[2019-11-12] MEDS ORDERED: Sodium Chloride 0.9% 1,000 ML IV ONE (20:18)
--- NOTE | 2019-12-16 12:17 | CR ---
PROCEDURE INFORMATION: Exam: XR Chest, 1 View Exam date and time: 11/12/2019 4:31 PM Age: 39 years old Clinical indication: Patient HX: Cough, SOB, covid precautions, 20weeks TECHNIQUE: Imaging protocol: XR of the chest Views: 1 view. COMPARISON: DX Chest 2V 06/06/2019 10:21 AM FINDINGS: Lungs: Unremarkable. No consolidation. Pleural space: Unremarkable. No pleural effusion. No pneumothorax. Heart/Mediastinum: Unremarkable. No cardiomegaly. Bones/joints: Unremarkable. IMPRESSION: No acute findings. Thank you for allowing us to participate in the care of your patient. Dictated and Authenticated by: Bib Jackson MD 12/16/2019 12:22 PM Central Time ([place] & [place]) JUNIE
== END 2019-11-12 22:20 | disposition home or self-care (01) ==
LOC: JD.ED 15:30
DX: O99.512 Diseases of the respiratory system complicating pregnancy, second trimester (principal); J45.909 Unspecified asthma, uncomplicated; J06.9 Acute upper respiratory infection, unspecified; O09.512 Supervision of elderly primigravida, second trimester; O99.891 Other specified diseases and conditions complicating pregnancy; R51.9 Headache, unspecified; G89.29 Other chronic pain; Z20.828 Contact with and (suspected) exposure to other viral communicable diseases; O99.282 Endocrine, nutritional and metabolic diseases complicating pregnancy, second trimester; E10.9 Type 1 diabetes mellitus without complications; E03.9 Hypothyroidism, unspecified; O99.212 Obesity complicating pregnancy, second trimester; E66.9 Obesity, unspecified; O99.342 Other mental disorders complicating pregnancy, second trimester; F41.9 Anxiety disorder, unspecified; F32.9 Major depressive disorder, single episode, unspecified; Z90.49 Acquired absence of other specified parts of digestive tract; Z79.899 Other long term (current) drug therapy; Z3A.20 20 weeks gestation of pregnancy
CPT/HCPCS: 36415; 71045; 80053; 82728; 82962; 83615; 84484; 84702; 85007; 85027; 85610; 85730; 86140; 87635; 94762; 96361; 96365; 96366; 96375; 99285; A9270; J1170; J2405; J2930; J3475; J7030; 99284; U0002

== ENCOUNTER 2021-09-11 17:36 | Emergency (ER) | payer OTHER ==
[2021-09-11 18:23] VITALS: BP 156/102; PULSE 106
[2021-09-11] MEDS ORDERED: Sodium Chloride 0.9% 10 ML Syringe FLUSH PRN (20:07)
[2021-09-11] MEDS ORDERED: HYDROmorphone 0.5 MG/0.5 ML Syringe IVPUSH ONE (20:08)
[2021-09-11] MEDS ORDERED: Ondansetron 4 MG/2 ML SDV IVPUSH ONE (20:08)
[2021-09-11] MEDS ORDERED: Sodium Chloride 0.9% 1,000 ML IV ONE (20:08)
== END 2021-09-11 22:34 | disposition home or self-care (01) ==
LOC: JD.ED 17:36
DX: B34.9 Viral infection, unspecified (principal); E10.9 Type 1 diabetes mellitus without complications; E03.9 Hypothyroidism, unspecified; E66.9 Obesity, unspecified; Z68.41 Body mass index [BMI] 40.0-44.9, adult; Z20.822 Contact with and (suspected) exposure to COVID-19
CPT/HCPCS: 36415; 71046; 74176; 80053; 81001; 82009; 83605; 83735; 85025; 86140; 87635; 96361; 96374; 96375; 99284; J1170; J2405; J3490; J7030; U0002

== ENCOUNTER 2022-08-27 12:20 | Inpatient (IN) | payer OTHER ==
[2022-08-27] MEDS ORDERED: Piperacillin/Tazobactam 4.5 GM in Sodium Chloride 0.9% 100 ML IV ONE (13:06)
[2022-08-27] MEDS ORDERED: Iopamidol 755 Mg/ML 100 ML Bottle IVPUSH ONE (13:21)
[2022-08-27] MEDS ORDERED: Sodium Chloride 0.9% 10 ML Syringe FLUSH ONE (13:21)
[2022-08-27] MEDS ORDERED: Sodium Chloride 0.9% 100 ML IV SCH (13:30)
[2022-08-27] MEDS ORDERED: Sodium Chloride 0.9% 1,000 ML IV STA ×2 (13:47→14:59)
[2022-08-27] MEDS ORDERED: Ibuprofen 600 MG Tab PO ONE (14:08)
[2022-08-27 14:53] LABS: LACTIC ACID 2.6 mmol/L (0.4-2.0)
[2022-08-27] MEDS ORDERED: Albuterol 0.083% 2.5 MG/3 ML Neb Soln NEB PRN (15:11)
[2022-08-27] MEDS: Acetaminophen/HYDROcodone 325-5 MG Tab PO PRN ×2 (16:14→22:18)
[2022-08-27] MEDS ORDERED: INSULIN PUMP SCH (16:30)
[2022-08-27] MEDS ORDERED: INFUS SET SCH (16:30)
[2022-08-27] MEDS: Ondansetron 4 MG/2 ML SDV IV PRN ×2 (17:49→23:54)
[2022-08-27] MEDS: Sodium Chloride 0.9% 1,000 ML IV SCH (18:13)
[2022-08-27 20:39] LABS: LACTIC ACID 1.3 mmol/L (0.4-2.0)
[2022-08-27] MEDS: Piperacillin/Tazobactam 4.5 GM in Sodium Chloride 0.9% 100 ML IV SCH (21:10)
[2022-08-27] MEDS: Acetaminophen 325 MG Tab PO PRN (21:15)
[2022-08-28] MEDS: Sodium Chloride 0.9% 1,000 ML IV SCH (03:58)
[2022-08-28] MEDS: Levothyroxine 75 MCG Tab PO SCH (05:13)
[2022-08-28] MEDS: Acetaminophen 325 MG Tab PO PRN (05:13)
[2022-08-28] MEDS: Piperacillin/Tazobactam 4.5 GM in Sodium Chloride 0.9% 100 ML IV SCH ×3 (05:14→21:15)
[2022-08-28 05:27] LABS: HEMATOCRIT 28.7 % (34.1-44.9); MEAN CORPUSCULAR HEMOGLOBIN 26.8 pg (25.6-32.2); MEAN CORPUSCULAR VOLUME 89.4 fl (79.4-94.8); MEAN PLATELET VOLUME 11.2 fl (9.4-12.3); PLATELET COUNT,PLT 354 K/mm3 (182-369); RED BLOOD CELL COUNT 3.21 M/mm3 (3.98-5.22); WHITE BLOOD CELL COUNT,WBC 13.09 K/mm3 (3.98-10.04)
[2022-08-28 05:35] LABS: HEMOGLOBIN 8.6 gm/dl (11.2-15.7)
[2022-08-28 05:56] LABS: A/G RATIO 0.7 (1-2); ALBUMIN 2.5 g/dl (3.4-5.0); ANION GAP 8.5 (5-15); BILIRUBIN TOTAL 0.2 mg/dL (0.2-1.0); CALCIUM 7.5 mg/dL (8.5-10.1); EST CRCL DRUG DOSING (CG) 73.93 mL/min; POTASSIUM,K 3.5 mEq/L (3.5-5.1); PROTEIN TOTAL,TP 6.1 g/dl (6.4-8.2)
[2022-08-28 06:09] LABS: C-REACTIVE PROTEIN 17.1 mg/dL (<1.0)
[2022-08-28] MEDS: Enoxaparin 40 MG/0.4 ML Syringe SUBCUT SCH (08:37)
[2022-08-28] MEDS: Acetaminophen/HYDROcodone 325-5 MG Tab PO PRN ×3 (08:37→23:33)
[2022-08-28] MEDS: ARIPiprazole 5 MG Tab PO SCH (08:38)
[2022-08-28] MEDS: ARIPiprazole 10 MG Tab PO SCH (08:38)
[2022-08-28] MEDS: FLUoxetine 10 MG Cap PO SCH (08:39)
[2022-08-28] MEDS: Ondansetron 4 MG/2 ML SDV IV PRN (11:15)
[2022-08-28] MEDS: Ibuprofen 400 MG Tab PO PRN (16:11)
[2022-08-29] MEDS: Piperacillin/Tazobactam 4.5 GM in Sodium Chloride 0.9% 100 ML IV SCH ×3 (05:26→21:55)
[2022-08-29] MEDS: Levothyroxine 75 MCG Tab PO SCH (05:27)
[2022-08-29 06:15] LABS: A/G RATIO 0.7 (1-2); ALBUMIN 2.5 g/dl (3.4-5.0); ANION GAP 11.3 (5-15); BILIRUBIN TOTAL 0.2 mg/dL (0.2-1.0); BUN/CREATININE RATIO 13.3 (14-18); CREATININE 0.9 mg/dL (0.55-1.02); EST CRCL DRUG DOSING (CG) 82.14 mL/min; HEMATOCRIT 27.9 % (34.1-44.9); HEMOGLOBIN 8.4 gm/dl (11.2-15.7); MEAN CORPUSCULAR HEMOGLOBIN 27.2 pg (25.6-32.2); MEAN CORPUSCULAR HGB CONC 30.1 g/dl (32.2-35.5); MEAN CORPUSCULAR VOLUME 90.3 fl (79.4-94.8); MEAN PLATELET VOLUME 11.4 fl (9.4-12.3); PLATELET COUNT,PLT 355 K/mm3 (182-369); POTASSIUM,K 4.3 mEq/L (3.5-5.1); PROTEIN TOTAL,TP 6.3 g/dl (6.4-8.2); RED BLOOD CELL COUNT 3.09 M/mm3 (3.98-5.22); WHITE BLOOD CELL COUNT,WBC 10.75 K/mm3 (3.98-10.04)
[2022-08-29 06:23] LABS: C-REACTIVE PROTEIN 14.2 mg/dL (<1.0)
[2022-08-29] MEDS: Ibuprofen 400 MG Tab PO PRN ×2 (07:50→20:09)
[2022-08-29] MEDS: Enoxaparin 40 MG/0.4 ML Syringe SUBCUT SCH ×2 (07:51→09:15)
[2022-08-29] MEDS: FLUoxetine 10 MG Cap PO SCH ×2 (07:51→09:15)
[2022-08-29] MEDS: ARIPiprazole 10 MG Tab PO SCH ×2 (07:51→09:14)
[2022-08-29] MEDS: ARIPiprazole 5 MG Tab PO SCH ×2 (07:51→09:14)
[2022-08-29] MEDS: Acetaminophen/HYDROcodone 325-5 MG Tab PO PRN ×2 (09:07→17:37)
[2022-08-29] MEDS: Ondansetron 4 MG/2 ML SDV IV PRN (17:37)
[2022-08-30] MEDS: Acetaminophen/HYDROcodone 325-5 MG Tab PO PRN (02:20)
[2022-08-30 05:54] LABS: HEMATOCRIT 29.1 % (34.1-44.9); HEMOGLOBIN 8.7 gm/dl (11.2-15.7); MEAN CORPUSCULAR HEMOGLOBIN 26.9 pg (25.6-32.2); MEAN CORPUSCULAR HGB CONC 29.9 g/dl (32.2-35.5); MEAN CORPUSCULAR VOLUME 90.1 fl (79.4-94.8); MEAN PLATELET VOLUME 10.9 fl (9.4-12.3); PLATELET COUNT,PLT 391 K/mm3 (182-369); RED BLOOD CELL COUNT 3.23 M/mm3 (3.98-5.22); WHITE BLOOD CELL COUNT,WBC 8.19 K/mm3 (3.98-10.04)
[2022-08-30 06:02] LABS: A/G RATIO 0.6 (1-2); ALBUMIN 2.4 g/dl (3.4-5.0); ANION GAP 7.6 (5-15); BILIRUBIN TOTAL 0.2 mg/dL (0.2-1.0); BUN/CREATININE RATIO 13.3 (14-18); C-REACTIVE PROTEIN 9.2 mg/dL (<1.0); CALCIUM 8.3 mg/dL (8.5-10.1); CREATININE 0.9 mg/dL (0.55-1.02); EST CRCL DRUG DOSING (CG) 82.14 mL/min; POTASSIUM,K 4.6 mEq/L (3.5-5.1); PROTEIN TOTAL,TP 6.5 g/dl (6.4-8.2)
[2022-08-30] MEDS: Piperacillin/Tazobactam 4.5 GM in Sodium Chloride 0.9% 100 ML IV SCH (06:15)
[2022-08-30] MEDS: Levothyroxine 75 MCG Tab PO SCH (06:15)
[2022-08-30] MEDS: Enoxaparin 40 MG/0.4 ML Syringe SUBCUT SCH (08:17)
[2022-08-30] MEDS: ARIPiprazole 10 MG Tab PO SCH (08:17)
[2022-08-30] MEDS: ARIPiprazole 5 MG Tab PO SCH (08:17)
[2022-08-30] MEDS: FLUoxetine 10 MG Cap PO SCH (08:17)
[2022-08-30 08:45] VITALS: BP 134/68; PULSE 94
== END 2022-08-30 11:12 | disposition home or self-care (01) | DRG 871 ==
LOC: JD.ED 12:20 → JD.MS 15:01
PROVIDERS: ADMIT Internal Medicine; ATTEND Internal Medicine
DX: A41.9 Sepsis, unspecified organism (principal); J18.9 Pneumonia, unspecified organism; J96.00 Acute respiratory failure, unspecified whether with hypoxia or hypercapnia; N30.00 Acute cystitis without hematuria; Z68.41 Body mass index [BMI] 40.0-44.9, adult; R65.20 Severe sepsis without septic shock; E10.9 Type 1 diabetes mellitus without complications; F32.A Depression, unspecified; I10 Essential (primary) hypertension; D50.0 Iron deficiency anemia secondary to blood loss (chronic); F41.9 Anxiety disorder, unspecified; J45.909 Unspecified asthma, uncomplicated; F32.9 Major depressive disorder, single episode, unspecified; E03.1 Congenital hypothyroidism without goiter; E03.9 Hypothyroidism, unspecified; G89.29 Other chronic pain; M25.562 Pain in left knee; Z97.3 Presence of spectacles and contact lenses; Z20.822 Contact with and (suspected) exposure to COVID-19; E66.9 Obesity, unspecified; Z90.49 Acquired absence of other specified parts of digestive tract; Z98.890 Other specified postprocedural states; Z79.899 Other long term (current) drug therapy; Z96.41 Presence of insulin pump (external) (internal); Z86.718 Personal history of other venous thrombosis and embolism; Z98.84 Bariatric surgery status
CPT/HCPCS: 36415; 71275; 82947; 83605; 86738; 87040 ×2; 99285; A9270; J3490 ×2; J7030; Q9967; 80053; 85027; 86140; 86850; 86900; 86901; 94660; 94761; 99239; J1650; J2405; J2543